=== PATIENT | female | born 1955 | race Caucasian/White ===

== ENCOUNTER → 2019-06-18 13:50 | Outpatient (BNVA) | payer SELFPAY | PROVIDERS: Family Provider Nurse Practitioner; PCP Nurse Practitioner; Referring Provider Nurse Practitioner; Visit Provider Nurse Practitioner | DX: M25.531 Pain in right wrist (principal) | CPT/HCPCS: 73110 ==

== ENCOUNTER → 2019-08-12 14:56 | Outpatient (BNVA) | payer OTHER, SELFPAY | PROVIDERS: Family Provider Nurse Practitioner; PCP Nurse Practitioner; Referring Provider Nurse Practitioner; Visit Provider Specialist | DX: M25.531 Pain in right wrist (principal) | CPT/HCPCS: 73110 ==

== ENCOUNTER 2019-08-19 14:55 | Outpatient (CLI) | payer SELFPAY ==
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
== END 2019-08-19 14:56 | disposition home or self-care (01) ==
LOC: RADWPI 15:00
PROVIDERS: Family Provider Nurse Practitioner; PCP Nurse Practitioner; Visit Provider Specialist
DX: M25.531 Pain in right wrist (principal)
CPT/HCPCS: 73221

== ENCOUNTER → 2019-09-14 09:51 | Outpatient (BNVA) | payer OTHER, SELFPAY | PROVIDERS: Family Provider Nurse Practitioner; PCP Nurse Practitioner; Referring Provider Specialist; Visit Provider Psychiatry & Neurology Neurology | DX: G56.01 Carpal tunnel syndrome, right upper limb (principal); Z87.891 Personal history of nicotine dependence | CPT/HCPCS: 95885; 95909 ==

== ENCOUNTER 2019-09-16 13:13 | Outpatient (CLI) | payer OTHER, SELFPAY | END 2019-09-16 13:14 | disposition home or self-care (01) | LOC: SPT 13:13 | PROVIDERS: Family Provider Nurse Practitioner; PCP Nurse Practitioner; Visit Provider Specialist | DX: Z46.89 Encounter for fitting and adjustment of other specified devices (principal); M25.531 Pain in right wrist | CPT/HCPCS: L3908 ==

== ENCOUNTER 2022-10-14 06:09 | Emergency (ER) | payer MEDICARE, MEDICAID, SELFPAY ==
[2022-10-14 06:09] VITALS: BP 150/84; PULSE 80; RESP 16; TEMP 36.3; O2SAT 94; BMI 24.9
[2022-10-14 06:31] VITALS: BP 175/81; PULSE 65; O2SAT 94
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
[2022-10-14 07:13] LABS: Basophils # 0.1 10^3/uL (0.0-0.1); Basophils % 0.4 %; Eosinophils # 0.1 10^3/uL (0.0-0.8); Eosinophils % 0.5 %; Hematocrit 43.5 % (37.0-47.0); Hemoglobin 13.6 g/dL (11.5-15.3); Lymphocytes # 1.2 10^3/uL (0.8-4.8); Lymphocytes % 9.2 %; Mean Corpuscular HGB Conc 31.3 g/dL (30.0-36.0); Mean Corpuscular Hemoglobin 29.6 pg (28.0-34.0); Mean Corpuscular Volume 94.8 fl (81-99); Mean Platelet Volume 9.8 fL (7.4-10.4); Monocytes # 0.7 10^3/uL (0.2-0.9); Monocytes % 5.2 %; Neutrophils # 11.34 10^3/uL (1.8-7.7); Neutrophils % 84.2 %; Nucleated Red Blood Cells % 0 %; Platelet Count 449 10^3/cmm (130-400); Red Blood Count 4.59 10^6/uL (4.1-5.3); Red Cell Distribution Width 13.4 % (12.1-15.1); White Blood Count 13.5 10^3/uL (4.0-10.0)
[2022-10-14 07:13] LABS: Add Urine Microscopic? YES; Bilirubin Urine Neg (Negative); Blood Urine 2+ (Negative); Glucose Urine UA Trace (Normal); Ketones Urine Negative (Negative); Leukocyte Esterase Urine Negative (Negative); Nitrate Urine Negative (Negative); Protein Urine Neg (Negative); Urine Appearance Hazy (CLEAR); Urine Color Straw (Yellow); Urobilinogen Urine Norm (Negative); pH Urine 7 (5-7)
[2022-10-14 07:14] LABS: Add Urine Culture? Yes; Bacteria Urine TRACE /hpf; WBC Urine RARE /hpf (0-5)
--- NOTE | 2022-10-14 07:22 | CTR_ITS ---
PROCEDURE INFORMATION: Exam: CT Abdomen And Pelvis Without Contrast Exam date and time: 10/14/2022 7:44 AM Age: 67 years old Clinical indication: Abdominal pain; Localized; Lower; Additional info: Flank pain/ hematuria TECHNIQUE: Imaging protocol: Computed tomography of the abdomen and pelvis without contrast. Radiation optimization: All CT scans at this facility use at least one of these dose optimization techniques: automated exposure control; mA and/or kV adjustment per patient size (includes targeted exams where dose is matched to clinical indication); or iterative reconstruction. REPORTING DATA: Count of CT and Cardiac NM exams in prior 12 months: This patient has received 0 known CTs and 0 known cardiac nuclear medicine studies in the 12 months prior to the current study. COMPARISON: CR XR hip RT 2-3V wo/w pel* [id number] 11/10/2018 8:06 PM RADIATION DOSE METRICS: Total DLP (mGy-cm): 359.4 FINDINGS: Lungs: Minimal bibasilar atelectasis noted, right greater than left. No consolidation. Liver: Normal. No mass. Gallbladder and bile ducts: Normal. No calcified stones. No ductal dilation. Pancreas: Normal. No ductal dilation. Spleen: Normal. No splenomegaly. Adrenal glands: Normal. No mass. Kidneys and ureters: There are 2 obstructing calculi in the right UVJ measuring 3 mm and 4 mm, resulting in mild hydronephrosis and stranding of the perirenal fat. Additional nonobstructing stones noted in the right kidney. Bilateral renal vascular calcifications seen. Stomach and bowel: Unremarkable. No obstruction. No mucosal thickening. Appendix: No evidence of appendicitis. Intraperitoneal space: Unremarkable. No free air. No significant fluid collection. Vasculature: Unremarkable. No abdominal aortic aneurysm. Lymph nodes: Unremarkable. No enlarged lymph nodes. Urinary bladder: Unremarkable as visualized. Reproductive: Bulky appearance of the uterus. There is a 5.6 cm rounded lesion adjacent to the uterus extending towards the right adnexal region, which may represent a fibroid or ovarian mass. Bones/joints: Degenerative changes of the spine seen. There is extensive lytic destruction of the pubic bone, ischium and inferolateral ilium on the right, with associated soft tissue component, which is difficult to measure. Multiple additional lytic lesions are seen scattered throughout the spine. Small right hip joint effusion seen. Soft tissues: Unremarkable. CT/CT kidney stone [id number] IMPRESSION: 1. Extensive lytic destruction of the pubic bone, ischium, inferolateral ilium on the right, with associated soft tissue component. Multiple additional lytic lesions are seen scattered throughout the spine. Imaging findings highly concerning for metastatic disease. 2. Nonspecific rounded mass in the right adnexal region, which may represent ovarian mass or uterine fibroid. Bulky appearance of the uterus.
[2022-10-14 07:32] VITALS: BP 165/97; O2SAT 95
[2022-10-14 07:32] LABS: Blood Urea Nitrogen 20 mg/dL (8-23); Calcium 9.6 mg/dL (8.5-10.5); Carbon Dioxide 26 mmol/L (22-29); Chloride 101 mmol/L (98-107); Glomerular Filtration Rate 62.6 mL/min (90-130); Glucose 127 mg/dL (65-115); Osmolality Calculated 294 mOsm/kg (285-295); Sodium 140 mmol/L (136-145)
[2022-10-14 08:06] VITALS: BP 155/80; O2SAT 98
[2022-10-14 09:33] VITALS: BP 146/84; O2SAT 96
[2022-10-14 10:24] VITALS: BP 163/98; PULSE 65; O2SAT 96
--- NOTE | 2022-10-14 10:26 | DCPLANNER ---
Addendum entered by Anne Marie Dunaway 10/15/22 10:47: Patient has a follow up appointment scheduled for Friday, October 21, 2022 at 12:40 at [facility] Gynecologic Oncology- patient is aware of appointment. Original Note: corporate relations manager was asked to refer patient to gynecology, case management director called Luis Fernando at [facility], who stated that patient would need to be referred to [facility] in [place], Dr. Blanca. corporate relations manager faxed patients information to the clinic for review. Patients information will be reviewed, clinic will call patient with appointment information.
== END 2022-10-14 10:24 | disposition home or self-care (01) ==
PROVIDERS: Emergency Provider Family Medicine; PCP Nurse Practitioner
DX: N83.9 Noninflammatory disorder of ovary, fallopian tube and broad ligament, unspecified (principal); M89.9 Disorder of bone, unspecified; Z87.891 Personal history of nicotine dependence
CPT/HCPCS: 51798; 74176; 80048; 81001; 85025; 87086; 99284

== ENCOUNTER 2022-11-14 15:13 | Emergency (ER) | payer MEDICARE, MEDICAID, SELFPAY ==
[2022-11-14 15:25] VITALS: BP 155/77; PULSE 65; RESP 16; TEMP 36.6; O2SAT 96
--- NOTE | 2022-11-14 15:33 | XRR_ITS ---
PROCEDURE INFORMATION: Exam: XR Right Shoulder Exam date and time: 11/14/2022 4:00 PM Age: 67 years old Clinical indication: Pain; Shoulder; Right; Additional info: Fall, pain TECHNIQUE: Imaging protocol: Radiologic exam of the right shoulder. Views: 2 or more views. COMPARISON: CR XR shoulder RT min 2V* [id number] 11/10/2018 8:06 PM FINDINGS: Bones/joints: There is impacted fracture of the proximal right humerus at the level of the anatomic neck involving head of the humerus. Fracture appears to be comminuted. There are lucencies in the head of the humerus and this is likely a pathologic fracture. Soft tissues: Normal. XR/XR shoulder RT min 2V* [id number] IMPRESSION: Pathologic fracture of the proximal right humerus.
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
[2022-11-14 16:15] VITALS: RESP 16
[2022-11-14] MEDS: oxyCODONE 5 mg IR Tab/Cap PO (16:15)
--- NOTE | 2022-11-14 18:32 | PC.NURSE ---
Pt declined second dose of oxycodone stating she has to drive home. Pt urinated on her pants, green paper pants given to pt. Pt asking what is the plan.
--- NOTE | 2022-11-14 19:44 | PC.NURSE ---
PT WAS BROUGHT BACK FROM TO ROOM 2 AFTER ROOM WAS CLEANED AND PT STATES THAT SHE PEED ON HERSELF DUE TO NOT BEING ABLE TO GET HERSELF UP (PT GOT UP FROM AFTER URINATING ON HERSELF TO TELL REGISTRATION THAT SHE PEED) WHEN WE GOT PT BACK TO HER ROOM SHE STARTED CUSSING AT TX, VON, AND MEGHAN. SHE WAS CUSSING AT US FOR NOT HELPING HER AND WE REITERATED TO HER THAT SHE DID NOT INFORM ANYONE THAT SHE NEEDED TO GO. PT WAS PUT IN ROOM AND HELPED TO BED BY ME. PT WAS TOLD SHE COULD NOT CUSS AT US OR YELL AT US BY KRYSTAL AND Herb. PT HAD TOLD A TECH SHE NEEDED MORE PAIN MEDICATION, THAT THE MED FROM [facility] WAS WORN OFF. I BROUGHT NEW PAIN MED IN AND FOUND PT ON THE COMMODE. PT IMMEDIATELY STARTED YELLING AT ME TELLING ME SHE PEED HER 'FUCKING PANTS AGAIN, I ASKED HER IF SHE WOULD LIKE A PAIR OF OUR PAPER PANTS AND SHE PROCEEDED TO YELL AT TX BC SHE DID NOT BRING ANYMORE PANTS BC SHE WAS NOT PLANNING ON GOING TO THE [facility] ER. SHE ALSO YELLED AT ME FOR NOT HELPING HER AND I ASKED HER IF SHE PUSHED HER CALL LIGHT AND SHE YELLED AND CUSSED AT ME SAYING SHE DIDNT HAVE FUCKING TIME I ASKED HER AGAIN IF SHE WANTS A PAIR OF OUR PANTS AND SHE SAID SHE WAS GOING TO PUT THE PAD AND MATERNATY UNDERWHERE ON AND I SAID OKAY DO YOU WANT ME TO COME BACK W YOUR MED AND SHE SAID DO YOU FUCKING EXPECT ME TO SIT BEAR ASS NAKED ON THE COMODE AND I SAID WOULD YOU LIKE PAPER PANTS YES OR NO AND SHE TOLD ME TO NOT TALK TO HER LIKE A CHILD AND I SAID I HAVE ASKED YOU SEVERAL TIMES IF YOU WANT PANTS AND YOU HAVE NOT ANSWERED ME I AM NOT GOING TO STAY HERE AND LET YOU YELL AT ME OR CUSS AT ME, DO YOU WANT PANTS YES OR NO. AND SHE PROCEEDED TO YELL AT ME WHILE I WALKED OUT OF THE ROOM. UPON DC I BROUGHT SHOULDER IMMOBILIZER TO PLACE ON PT. WHEN WALKING IN I SAID OK HUN I HAVE A SHOULDER IMMOBILIZER TO PUT ON YOU AND A SIGNATURE TO GET, ARE YOU READY TO GO HOME? AND SHE STATED YOU TALKED TO ME LIKE A CHILD [facility] AND YOU HAVE NO RIGHT, YOU NEED TO APPOLOGIZE TO ME I SAID IM JUST TRYING TO GET YOU DISCHARGED RIGHT NOW, THAT WAS [facility] TODAY LETS JUST MOVE PAST THAT SITUATION. SHE PROCEDED TO TELL ME IT IS IN MY BEST INTEREST TO APOLOGIZE TO HER. AND AGAIN STARTED YELLING AT ME FOR TALKING TO HER LIKE A CHILD AND I SAID YOU WERE NOT ANSWERING ME AND YOU KEPT YELLING AT ME AND BEING DISRESPECTFUL SO I AM NOT SORRY FOR TRYING TO GET AN ANSWER. SHE THEN TOLD ME TO SHE RECORDED ME WITH HER PHONE CAMERA, AND I SAID THAT IS FINE BC I DID NOT SAY ANYTHING I WOULDNT REPORT MYSELF. I THEN TRIED TO PUT THE SHOULDER IMMOBILIZER ON HER AND SHE SAID I NEEDED TO GO FIND A COMPETENT NURSE AND I TOLD HER I WAS HER NURSE AND EVERYONE WAS BUSY, SHE TOLD ME SHE DID NOT TRUST ME AND I WOULD PROBABLY PUT IT ON HER WRONG AND I TOLD HER SHE DID NOT HAVE TO WEAR IT OUT, DOC SAID SHE COULD TAKE IT HOME, I TRIED TO GET HER TO SIGN HER DC PAPERS, THIS IS WHEN SHE TOLD ME TO GET MY SPEECH LANGUAGE ASSISTANT, I WENT AND GOT PAULETTE AND GAVE HER A RUNDOWN AND SHE WENT TO HELP PT WHILE I ASSISTED MY OTHER PTS.
--- NOTE | 2022-11-15 08:23 | DCPLANNER ---
Addendum entered by Anne Marie Dunaway 11/20/22 10:10: Patient had a follow up appointment scheduled with ortho - patient did attend appointment Addendum entered by Anne Marie Dunaway 11/15/22 10:50: Patient has a follow up appointment scheduled for Saturday, November 19, 2022 at 3:00 with Cliff Bills at ortho. Original Note: store manager had message to schedule a follow up appointment for patient with ortho. store manager sent patients information to the front office staff at ortho. Patients information will be printed and reviewed. Clinic will call patient with appointment information.
== END 2022-11-14 20:21 | disposition home or self-care (01) ==
PROVIDERS: Emergency Provider Emergency Medicine; PCP Family Medicine
DX: S42.291A Other displaced fracture of upper end of right humerus, initial encounter for closed fracture (principal); X58.XXXA Exposure to other specified factors, initial encounter
CPT/HCPCS: 29240; 73030; 99283

== ENCOUNTER → 2022-11-19 14:46 | Outpatient (BNVA) | payer MEDICARE, MEDICAID, SELFPAY | PROVIDERS: PCP Family Medicine; Referring Provider Emergency Medicine; Visit Provider Physician Assistant | DX: S42.291A Other displaced fracture of upper end of right humerus, initial encounter for closed fracture (principal); W18.30XA Fall on same level, unspecified, initial encounter | CPT/HCPCS: 73030; 99203 ==

== ENCOUNTER 2022-11-23 05:49 | Outpatient (CLI) | payer MEDICARE, MEDICAID, SELFPAY ==
--- NOTE | 2022-11-23 10:30 | PETR_ITS ---
PROCEDURE INFORMATION: Exam: PET/CT Skull Base to Mid-thigh Exam date and time: 11/23/2022 10:45 AM Age: 67 years old Clinical indication: Condition or disease; Primary cancer: Breast cancer; Initial oncological staging assessment LABS AND CLINICAL REPORTS: Glucose: 84 mg/dl Treatment strategy for malignancy (PET staging): Initial Staging (PI) TECHNIQUE: Imaging protocol: Following at least four-hour fasting and following the injection of radiopharmaceutical, low dose CT images were obtained. Then, PET images were obtained. Attenuation corrected images were constructed using the CT scan. Fused images of PET and CT were reviewed. The standardized uptake values (SUV) reported below are maximum values within a region of interest, expressed in gm/ml. Exam includes orbital meatal line to mid-thigh. Radiopharmaceutical: 14.04 mCi F-18 FDG (Fluorodeoxyglucose), IV. Time of imaging post radiopharmaceutical administration: 1 hour Injection site: Left forearm COMPARISON: CT kidney stone [id number] 10/14/2022 7:44 AM, right shoulder x-ray series 11/14/2022 FINDINGS: Brain: Visualized brain has normal physiologic uptake. Pharynx: No abnormal uptake. Larynx: No abnormal uptake. Lungs, pleura and trachea: No abnormal uptake. Heart: Normal physiologic uptake. Mediastinal space: No abnormal uptake. Liver: No abnormal uptake. Gallbladder and bile ducts: No abnormal uptake. Pancreas: No abnormal uptake. Spleen: No abnormal uptake. Adrenal glands: No abnormal uptake. Kidneys and ureters: Normal physiologic uptake. No hydronephrosis. A staghorn calculus in the right kidney measuring 1.7 x 1.0 cm in the axial plane is noted. Interval resolution of previously noted hydronephrosis. Previously noted calculi at the right ureterovesical junction are no longer identified. Stomach and bowel: No abnormal uptake. Vasculature: No abnormal uptake. Diffuse atherosclerotic changes are noted. Lymph nodes: There are small radiotracer avid right external iliac chain lymph nodes measuring 1.2 x 0.7 cm on series 3, image 122, SUV max 5.6 within adjacent more inferiorly located lymph node measuring approximately 1.4 x 0.7 cm on image 124, SUV max 4.8. Bones/joints: There are numerous radiotracer avid osseous lesions. Examples a lytic lesion in the right anterior ring of C1 is noted measuring 1.8 x 1.0 cm on series 3, image 12, SUV max 8.5; a lucent lesion in the T3 vertebral body measures 1.7 x 0.9 cm on series 3, image 18, SUV max 9.4; within the region of previously noted pathologic fracture of the proximal right humeral metaphysis with extension into numerous regions of abnormal lucency involving the right femoral head, SUV max 7.9; within lobulated lucency in the right glenoid, SUV max 11.0 in a region measuring approximately 1.6 x 1.4 cm on series 3, image 39; and a lucent lesion in the L5 vertebral body on the left measuring 1.7 cm in diameter, SUV max 15.4; involving a large destructive lesion of the right iliac bone with a soft tissue density component measuring approximately 10.3 x 4.7 cm on series 3, image 123, right acetabulum, right superior pubic and inferior pubic rami and right pubic bone, SUV max 13.2. Additional smaller radiotracer avid lesions include the posterior cortex of the proximal shaft of the femur, left femoral neck, right femoral head, left inferior pubic ramus, sacrum, lumbar thoracic vertebral bodies left glenoid. Large right hip joint effusion. Soft tissues: Asymmetric soft tissue density in the subareolar right breast measures 1.9 by 1.3 cm on series 3, image 78, SUV max 4.8. Abnormal uptake in the soft tissues posterior to the most posterior right maxillary tooth is noted, SUV max 6.7. Lobulated prominence of the uterus is noted, greatest to the right of midline where there is a probable exophytic leiomyoma measuring 4.9 x 3.9 cm on series 3, image 120, without abnormal uptake in these locations. No abnormal uptake in the adnexal regions. Abnormal uptake is identified in the right gluteus medius muscle adjacent to the mass in the right ilium and acetabulum, SUV max 8.7. METRICS: Mediastinal blood pool: SUV max 2.2 [facility] [id number] IMPRESSION: 1. Abnormal uptake within asymmetric soft tissue density in the subareolar portion of the right breast is compatible with the history of malignancy. 2. Numerous radiotracer avid osseous lesions are identified consistent with metastases, the largest and most destructive of which is involves the right pelvis in the region of the inferior iliac bone, acetabulum, superior inferior pubic rami and pubic bone. 3. Known pathologic fracture of the proximal right humerus. 4. Radiotracer avid right pelvic sidewall lymph nodes compatible with malignancy. 5. Uptake within the right gluteus medius muscle is noted which may be reactive or related to tumor invasion. 6. Interval resolution of right-sided hydronephrosis. Previously noted stones in the region of the ureterovesical junction on the right are no longer identified. 7. Non radiotracer avid enlargement of the uterus with an exophytic soft tissue density extending into the right adnexal region compatible with a leiomyoma. 8. Additional nonurgent findings as detailed above.
== END 2022-11-23 05:50 | disposition home or self-care (01) ==
LOC: RAD 11-25 05:49
PROVIDERS: PCP Family Medicine; Visit Provider Internal Medicine Medical Oncology
DX: C50.111 Malignant neoplasm of central portion of right female breast (principal); C79.52 Secondary malignant neoplasm of bone marrow; C50.919 Malignant neoplasm of unspecified site of unspecified female breast
CPT/HCPCS: 78815; A9552

== ENCOUNTER 2022-11-27 06:30 | Outpatient (CLI) | payer MEDICARE, MEDICAID, SELFPAY ==
--- NOTE | 2022-11-27 | XR_ITS ---
WS: [id number] RIGHT HAND: 3 VIEW(S) TECHNIQUE: PA, oblique and lateral. HISTORY: PAIN AND SWELLING COMPARISON: 08/12/2019 No acute fracture or dislocation. Osteopenia. Moderate interphalangeal joint space narrowing. Additional osteoarthritic changes involvi ng the first carpometacarpal joint and the STT. 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 No fractures.
== END 2022-11-27 06:31 | disposition home or self-care (01) ==
PROVIDERS: PCP Family Medicine; Visit Provider Nurse Practitioner
DX: M19.041 Primary osteoarthritis, right hand (principal)
CPT/HCPCS: 73130

== ENCOUNTER 2022-11-28 14:40 | Oncology outpatient (recurring) (ONCR) | payer MEDICARE, MEDICAID, SELFPAY ==
--- NOTE | 2022-11-20 13:37 | N.ONRAD NP_ITS ---
Radiation Oncology Consultation Patient Name: Lorna Mckenzie Date of : 1955 Date of Service: 11/20/2022 Attending Physician: Bartolome Prabhakar M.D. Lorna cMkenzie was seen in consultation this afternoon at the request of Mark Sandoval M.D. for consideration of palliative radiotherapy in the management of metastatic breast cancer. She was evaluated at the [facility] Emergency Department on October 14, 2022 for lower abdominal pain. An abdominopelvic CT scan (independently reviewed in [facility]) described a 5.6 cm lesion adjacent to the uterus extending to the right adnexal region, extensive lytic destruction of the right pubic bone, ischium, ilium, and spine. She was evaluated by gynecologic oncology at the [facility] in [place], [place]. Examination of the right breast described erythema and ulceration of the areola. 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 The tumor cells were positive for CK7 and JOYCE-3. This IHC pattern is most consistent with a primary ductal carcinoma of the breast. The Breast Cancer Profile was positive for estrogen receptor (95%), progesterone receptor (10%), and negative for HER2 (1+). The patient was referred for palliative radiotherapy. I discussed with Ms. Mckenzie the role for palliative radiotherapy. On account of her worsening pelvic pain, I would recommend a 1-week course of radiation therapy. A planning CT scan will be acquired prior to beginning treatment to delineate the clinical target volume. The potential toxicities of radiotherapy were reviewed. The patient has verbalized understanding would like to proceed as recommended. The patient???s medical treatment has been discussed with Mark Sandoval M.D. Signed by: Dr. Bartolome Prabhakar 11/20/2022 1:35:53 PM
[2022-11-28 16:30] LABS: Basophils # 0.1 10^3/uL (0.0-0.1); Basophils % 0.8 %; Eosinophils # 0.1 10^3/uL (0.0-0.8); Eosinophils % 0.8 %; Hematocrit 38.3 % (37.0-47.0); Hemoglobin 12.1 g/dL (11.5-15.3); Lymphocytes # 1.8 10^3/uL (0.8-4.8); Mean Corpuscular HGB Conc 31.6 g/dL (30.0-36.0); Mean Corpuscular Hemoglobin 29.5 pg (28.0-34.0); Mean Corpuscular Volume 93.4 fl (81-99); Mean Platelet Volume 10.1 fL (7.4-10.4); Monocytes # 0.4 10^3/uL (0.2-0.9); Monocytes % 6.6 %; Neutrophils # 4.01 10^3/uL (1.8-7.7); Neutrophils % 63.5 %; Nucleated Red Blood Cells % 0 %; Platelet Count 450 10^3/cmm (130-400); Red Cell Distribution Width 12.8 % (12.1-15.1); White Blood Count 6.3 10^3/uL (4.0-10.0)
[2022-11-28] MEDS: zoledronic acid 4 MG in sodium chloride 0.9% (100 ml) 100 ML 420 MG IV (16:33)
[2022-11-28 16:58] VITALS: BP 127/72; PULSE 74; O2SAT 96
[2022-11-28 17:02] LABS: Alanine Aminotransferase 10 U/L (0-33); Albumin Level 3.7 g/dL (3.5-5.2); Alkaline Phosphatase 119 U/L (35-105); Anion Gap 14.9 (5-19); Aspartate Amino Transferase 16 U/L (0-32); Blood Urea Nitrogen 13 mg/dL (8-23); Calcium 9.1 mg/dL (8.5-10.5); Carbon Dioxide 26 mmol/L (22-29); Chloride 104 mmol/L (98-107); Globulin 2.8 g/dL (1.3-4.6); Glomerular Filtration Rate 123.4 mL/min (90-130); Glucose 89 mg/dL (65-115); Osmolality Calculated 292 mOsm/kg (285-295); Potassium 3.9 mmol/L (3.5-5.1); Sodium 141 mmol/L (136-145); Total Bilirubin 0.3 mg/dL (0.15-1.2); Total Protein 6.5 g/dL (6.6-8.7)
[2022-11-28 17:23] LABS: CA 15-3 639.1 U/mL (0-25)
== END 2022-12-06 23:59 | disposition home or self-care (01) ==
PROVIDERS: Nurse Practitioner Family; PCP Family Medicine; Visit Provider Radiology Radiation Oncology
DX: C50.111 Malignant neoplasm of central portion of right female breast (principal); Z17.0 Estrogen receptor positive status [ER+]; C79.51 Secondary malignant neoplasm of bone; F17.210 Nicotine dependence, cigarettes, uncomplicated; Z79.818 Long term (current) use of other agents affecting estrogen receptors and estrogen levels; Z79.899 Other long term (current) drug therapy; R11.2 Nausea with vomiting, unspecified
CPT/HCPCS: 80053; 85025; 86300; 96372; 99205; 99215; J3489

== ENCOUNTER 2022-12-26 12:27 | Oncology outpatient (recurring) (ONCR) | payer MEDICARE, MEDICAID, SELFPAY ==
[2022-12-26 12:30] VITALS: BMI 18.5
[2022-12-26 12:31] VITALS: BP 112/71; PULSE 91; RESP 18; TEMP 36.9; O2SAT 98
[2022-12-26 12:42] LABS: Basophils % 1.5 %; Eosinophils % 1.1 %; Hematocrit 37.3 % (37.0-47.0); Lymphocytes # 1.2 10^3/uL (0.8-4.8); Lymphocytes % 44.9 %; Mean Corpuscular HGB Conc 32.2 g/dL (30.0-36.0); Mean Corpuscular Hemoglobin 31.4 pg (28.0-34.0); Mean Corpuscular Volume 97.6 fl (81-99); Mean Platelet Volume 9.5 fL (7.4-10.4); Monocytes # 0.2 10^3/uL (0.2-0.9); Monocytes % 7.1 %; Neutrophils # 1.21 10^3/uL (1.8-7.7); Neutrophils % 45.4 %; Nucleated Red Blood Cells % 0 %; Platelet Count 305 10^3/cmm (130-400); Red Blood Count 3.82 10^6/uL (4.1-5.3); Red Cell Distribution Width 17.4 % (12.1-15.1); White Blood Count 2.7 10^3/uL (4.0-10.0)
[2022-12-26 13:09] LABS: Alanine Aminotransferase 13 U/L (0-33); Albumin Level 4.2 g/dL (3.5-5.2); Alkaline Phosphatase 145 U/L (35-105); Aspartate Amino Transferase 16 U/L (0-32); Blood Urea Nitrogen 14 mg/dL (8-23); Calcium 9.1 mg/dL (8.5-10.5); Carbon Dioxide 25 mmol/L (22-29); Chloride 104 mmol/L (98-107); Globulin 2.9 g/dL (1.3-4.6); Glomerular Filtration Rate 123.4 mL/min (90-130); Glucose 100 mg/dL (65-115); Osmolality Calculated 287 mOsm/kg (285-295); Sodium 138 mmol/L (136-145); Total Bilirubin 0.4 mg/dL (0.15-1.2); Total Protein 7.1 g/dL (6.6-8.7)
[2022-12-26 13:31] LABS: CA 15-3 691.7 U/mL (0-25)
[2022-12-26] MEDS: zoledronic acid 4 MG in sodium chloride 0.9% (100 ml) 100 ML 420 MG IV (15:24)
[2022-12-26 15:47] VITALS: BP 104/65; PULSE 68; RESP 18; TEMP 36.9; O2SAT 97
== END 2023-01-06 23:59 | disposition home or self-care (01) ==
PROVIDERS: Internal Medicine Medical Oncology; PCP Family Medicine; Visit Provider Radiology Radiation Oncology
DX: C50.111 Malignant neoplasm of central portion of right female breast (principal); Z17.0 Estrogen receptor positive status [ER+]; C79.51 Secondary malignant neoplasm of bone; R97.8 Other abnormal tumor markers; Z79.818 Long term (current) use of other agents affecting estrogen receptors and estrogen levels; Z79.899 Other long term (current) drug therapy
CPT/HCPCS: 36415; 80053; 85025; 86300; 96365; 99214; J3489

== ENCOUNTER → 2022-12-31 14:01 | Outpatient (BNVA) | payer MEDICARE, MEDICAID, SELFPAY | PROVIDERS: PCP Family Medicine; Visit Provider Physician Assistant | DX: M25.511 Pain in right shoulder (principal) | CPT/HCPCS: 73030; 99204 ==

== ENCOUNTER 2023-01-13 13:24 | Oncology outpatient (recurring) (ONCR) | payer MEDICARE, MEDICAID, SELFPAY ==
--- OUTSIDE RECORDS SUMMARY | 2023-01-13 13:25 | XMS_ITS | Continuity of Care Document ---
Author Name Unknown Organization [facility] Address [address] [place] [address]- Care Team Providers Care Broadcasting Equipment Mechanic Name Role Phone Zzz, Not On File Doctor Primary Care Physician U navailable Encounter [facility] Financial Number [id number] Date(s): 10/21/22 - 10/23/22 [facility] [address] [place] [phone] Attending Physician: Fiona Bourne MD Allergies, Adverse Reactions, Alerts No Known Medication Allergies Assessment and Plan Future Appointments Appointment Date:11/08/2022 10:30:00 AM Scheduled Provider: Location:[facility] Radiology Appointment Type:Surgery Future Scheduled Tests Radiology* CT Chest w Contrast 11/08/22 * CT Biopsy Bone 11/08/22 Medications CoQ10 By mouth, Daily, Refill(s) 0 Start Date: 10/21/22 Status: Ordered ivermectin 150 mcg/kg, By mouth, ONCE, Refill(s) 0 Start Date: 10/21/22 Status: Ordered [employer] [place]-3 1,200 mg, By mouth, TID, Refill(s) 0 Start Date: 10/21/22 Status: Ordered oxyCODONE 5 mg oral tablet 5 mg, = 1 tab, By mouth, Q6H, PRN Pain Severe, 30 tab, 0, 0, 10/28/22 17:17:00 CDT, Substitution Permitted, [employer] #[id number], 65, Height, 10/21/22 13:18:00 CDT, in, 55.86, Weight, 10/21/2312:18:00 CDT, kg Start Date: 10/21/22 Stop Date: 10/28/22 Status: Ordered Problem List Condition Confirmation Course Effective Dates Status H ealth Status Informant Lytic bone lesion of hip Confirmed Active Ex-smoker Confirmed Active patient Hydronephrosis Confirmed Active Hepatomegaly Confirmed Active 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 No 1 entered on: 10/21/22 Sex Female 1Stopped in 1998 Patient Care team information Care Team Personnel Name: Awilda, Not On File Doctor Position: PX Physician - Dermatology Member Role: Primary Care Physician Care Team Related Persons Name: MARC ADORNO
--- OUTSIDE RECORDS SUMMARY | 2023-01-13 13:25 | XMS_ITS | Continuity of Care Document ---
Author Name Unknown Organization [facility] Address [address] [place] [address]- Care Team Providers Care Legal Stenographer Name Role Phone Awilda, Not On File Doctor Primary Care Physician U navailable Encounter [employer] Number [id number] Date(s): 10/21/22 - 12/20/22 [facility] [address] [place], [place] [address] [phone] Attending Physician: Mateo Rainey MD Admitting Physician: Referring, DR Almaraz Allergies, Adverse Reactions, Alerts No Known Medication Allergies Assessment and Plan Future Scheduled Tests Radiology* CT Chest w Contrast 11/08/22 * CT Biopsy Bone 11/08/22 Medications CoQ10 By mouth, Daily, Refill(s) 0 Start Date: 10/21/22 Status: Ordered ivermectin 150 mcg/kg, By mouth, ONCE, Refill(s) 0 Start Date: 10/21/22 Status: Ordered [employer] [place]-3 1,200 mg, By mouth, TID, Refill(s) 0 Start Date: 10/21/22 Status: Ordered Problem List Condition Confirmation Course [...] Care team information Care Team Personnel Name: Edyta Wheeler MD Position: PX Physician - Oncologist Member Role: Oncologist Address: Address: [address] [place], [place] [address] Name: Awilda, Not On File Doctor Position: PX Physician - Dermatology Member Role: Primary Care Physician Care Team Related Persons Name: MARC ADORNO
--- OUTSIDE RECORDS SUMMARY | 2023-01-13 13:25 | XMS_ITS | Continuity of Care Document ---
Author Name Unknown Organization [facility] Address [address] [place] [address]- Care Team Providers Care Groundwater Consultant Name Role Phone Zzz, Not On File Doctor Primary Care Physician U navailable Encounter [employer] Number [id number] Date(s): 10/21/22 - 10/23/22 [facility] [address] [place] [address]- Attending Physician: Mateo Rainey MD Admitting Physician: Referring, DR Almaraz Allergies, Adverse Reactions, Alerts No Known Medication Allergies Assessment and Plan Future Appointments Appointment Date:11/08/2022 10:30:00 AM Scheduled Provider: Location:[facility] Radiology Appointment Type:Surgery Future Scheduled Tests Radiology* CT Chest w Contrast 11/08/22 * CT Biopsy Bone 11/08/22 Medications CoQ10 By mouth, Daily, Refill(s) 0 Start Date: 10/21/22 Status: Ordered ivermectin 150 mcg/kg, By mouth, ONCE, Refill(s) 0 Start Date: 10/21/22 Status: Ordered [employer] [place]-3 1,200 mg, By mouth, TID, Refill(s) 0 Start Date: 10/21/22 Status: Ordered oxyCODONE 5 mg oral tablet 5 mg, = 1 tab, By mouth, Q6H, PRN Pain Severe, 30 tab, 0, 0, 10/28/22 17:17:00 CDT, Substitution Permitted, [employer] #[id number], 65, Height, 10/21/22 13:18:00 CDT, in, 55.86, [...]
[2023-01-13 13:28] VITALS: BP 123/93; PULSE 81; RESP 18; TEMP 37; O2SAT 96
[2023-01-13 13:40] LABS: Basophils # 0.1 10^3/uL (0.0-0.1); Basophils % 2.5 %; Eosinophils % 1.1 %; Hematocrit 38.7 % (37.0-47.0); Hemoglobin 12.5 g/dL (11.5-15.3); Lymphocytes # 1.1 10^3/uL (0.8-4.8); Lymphocytes % 40.4 %; Mean Corpuscular HGB Conc 32.3 g/dL (30.0-36.0); Mean Corpuscular Hemoglobin 31.8 pg (28.0-34.0); Mean Corpuscular Volume 98.5 fl (81-99); Mean Platelet Volume 9.7 fL (7.4-10.4); Monocytes # 0.1 10^3/uL (0.2-0.9); Neutrophils # 1.42 10^3/uL (1.8-7.7); Neutrophils % 51.6 %; Nucleated Red Blood Cells % 0 %; Platelet Count 355 10^3/cmm (130-400); Red Blood Count 3.93 10^6/uL (4.1-5.3); Red Cell Distribution Width 18.9 % (12.1-15.1); White Blood Count 2.8 10^3/uL (4.0-10.0)
[2023-01-23 12:23] VITALS: BMI 19.0
[2023-01-23 12:25] VITALS: BP 136/82; PULSE 77; RESP 18; TEMP 37.1; O2SAT 98
[2023-01-23 12:39] LABS: Basophils # 0.1 10^3/uL (0.0-0.1); Basophils % 2.4 %; Eosinophils % 0.7 %; Hematocrit 39.4 % (37.0-47.0); Hemoglobin 12.7 g/dL (11.5-15.3); Lymphocytes # 1.3 10^3/uL (0.8-4.8); Lymphocytes % 44.6 %; Mean Corpuscular HGB Conc 32.2 g/dL (30.0-36.0); Mean Corpuscular Hemoglobin 32.2 pg (28.0-34.0); Mean Platelet Volume 9.3 fL (7.4-10.4); Monocytes # 0.3 10^3/uL (0.2-0.9); Monocytes % 9.1 %; Neutrophils # 1.22 10^3/uL (1.8-7.7); Neutrophils % 42.5 %; Nucleated Red Blood Cells % 0 %; Platelet Count 234 10^3/cmm (130-400); Red Blood Count 3.94 10^6/uL (4.1-5.3); Red Cell Distribution Width 19.9 % (12.1-15.1); White Blood Count 2.9 10^3/uL (4.0-10.0)
[2023-01-23 13:14] LABS: Alanine Aminotransferase 11 U/L (0-33); Albumin Level 4.2 g/dL (3.5-5.2); Alkaline Phosphatase 102 U/L (35-105); Aspartate Amino Transferase 13 U/L (0-32); Blood Urea Nitrogen 10 mg/dL (8-23); Calcium 8.9 mg/dL (8.5-10.5); Carbon Dioxide 27 mmol/L (22-29); Chloride 103 mmol/L (98-107); Globulin 2.6 g/dL (1.3-4.6); Glomerular Filtration Rate 159.7 mL/min (90-130); Glucose 92 mg/dL (65-115); Osmolality Calculated 285 mOsm/kg (285-295); Sodium 138 mmol/L (136-145); Total Bilirubin 0.2 mg/dL (0.15-1.2); Total Protein 6.8 g/dL (6.6-8.7)
[2023-01-23 13:35] LABS: CA 15-3 576.2 U/mL (0-25)
[2023-01-23] MEDS: zoledronic acid 4 MG in sodium chloride 0.9% (100 ml) 100 ML 420 MG IV (14:49)
[2023-01-23 15:24] VITALS: BP 126/66; PULSE 65; RESP 16; TEMP 35.9; O2SAT 98
== END 2023-02-06 23:59 | disposition home or self-care (01) ==
PROVIDERS: Internal Medicine Medical Oncology; Nurse Practitioner Family; PCP Family Medicine; Visit Provider Radiology Radiation Oncology
DX: C50.111 Malignant neoplasm of central portion of right female breast (principal)
CPT/HCPCS: 36415; 80053; 85025; 86300; 96413; 99214; J3489

== ENCOUNTER → 2023-01-30 14:21 | Outpatient (BNVA) | payer MEDICARE, MEDICAID, SELFPAY | PROVIDERS: PCP Family Medicine; Visit Provider Physician Assistant | DX: M84.421D Pathological fracture, right humerus, subsequent encounter for fracture with routine healing (principal) | CPT/HCPCS: 73030; 99213 ==

== ENCOUNTER 2023-03-04 13:28 | Oncology outpatient (recurring) (ONCR) | payer MEDICARE, MEDICAID, SELFPAY ==
[2023-02-13 14:17] LABS: Basophils # 0.1 10^3/uL (0.0-0.1); Eosinophils % 1.5 %; Lymphocytes # 1.3 10^3/uL (0.8-4.8); Mean Corpuscular HGB Conc 32.9 g/dL (30-55); Mean Corpuscular Hemoglobin 33.9 pg (27-33); Mean Platelet Volume 9.3 fL (7.4-10.4); Monocytes # 0.2 10^3/uL (0.2-0.9); Monocytes % 7.2 %; Neutrophils # 1.01 10^3/uL (1.8-7.7); Neutrophils % 38.5 %; Nucleated Red Blood Cells % 0 %; Platelet Count 251 10^3/cmm (157-399); Red Blood Count 3.69 10^6/uL (3.85-5.65); White Blood Count 2.63 10^3/uL (3.29-11.43)
[2023-02-13 14:54] LABS: Alanine Aminotransferase 11 U/L (0-33); Alkaline Phosphatase 88 U/L (35-105); Anion Gap 12.4 (5-19); Aspartate Amino Transferase 17 U/L (0-32); Blood Urea Nitrogen 12 mg/dL (8-23); Calcium 8.3 mg/dL (8.5-10.5); Carbon Dioxide 26 mmol/L (22-29); Chloride 103 mmol/L (98-107); Globulin 2.7 g/dL (1.3-4.6); Glomerular Filtration Rate 159.7 mL/min (90-130); Glucose 94 mg/dL (65-115); Osmolality Calculated 284 mOsm/kg (285-295); Potassium 4.4 mmol/L (3.5-5.1); Sodium 137 mmol/L (136-145); Total Bilirubin 0.4 mg/dL (0.15-1.2); Total Protein 6.7 g/dL (6.6-8.7)
[2023-02-13 15:15] LABS: CA 15-3 430.4 U/mL (0-25)
[2023-03-04 13:41] VITALS: BP 106/58; PULSE 78; RESP 16; TEMP 36.4; O2SAT 94
[2023-03-04 14:14] LABS: Basophils # 0.1 10^3/uL (0.0-0.1); Basophils % 3.3 %; Eosinophils % 1.3 %; Hematocrit 36.9 % (36-47); Lymphocytes # 1.2 10^3/uL (0.8-4.8); Lymphocytes % 38.7 %; Mean Corpuscular HGB Conc 33.1 g/dL (30-55); Mean Corpuscular Hemoglobin 34.6 pg (27-33); Mean Corpuscular Volume 104.5 fl (85-98); Mean Platelet Volume 9.3 fL (7.4-10.4); Monocytes # 0.2 10^3/uL (0.2-0.9); Neutrophils # 1.55 10^3/uL (1.8-7.7); Neutrophils % 51.4 %; Nucleated Red Blood Cells % 0 %; Platelet Count 379 10^3/cmm (157-399); Red Blood Count 3.53 10^6/uL (3.85-5.65); Red Cell Distribution Width 17.1 % (12.1-15.1); White Blood Count 3.02 10^3/uL (3.29-11.43)
[2023-03-04 14:35] LABS: Alanine Aminotransferase 11 U/L (0-33); Albumin Level 4.1 g/dL (3.5-5.2); Alkaline Phosphatase 89 U/L (35-105); Anion Gap 12.3 (5-19); Aspartate Amino Transferase 13 U/L (0-32); Blood Urea Nitrogen 13 mg/dL (8-23); Calcium 8.4 mg/dL (8.5-10.5); Carbon Dioxide 27 mmol/L (22-29); Chloride 107 mmol/L (98-107); Globulin 2.4 g/dL (1.3-4.6); Glomerular Filtration Rate 123.4 mL/min (90-130); Glucose 93 mg/dL (65-115); Osmolality Calculated 294 mOsm/kg (285-295); Potassium 4.3 mmol/L (3.5-5.1); Sodium 142 mmol/L (136-145); Total Bilirubin 0.3 mg/dL (0.15-1.2); Total Protein 6.5 g/dL (6.6-8.7)
[2023-03-04] MEDS: zoledronic acid 4 MG in sodium chloride 0.9% (100 ml) 100 ML 420 MG IV (16:02)
[2023-03-04 16:32] VITALS: BP 107/64; PULSE 62; RESP 17; TEMP 36.6; O2SAT 96
[2023-03-04 16:42] LABS: 25 Hydroxy Vitamin D 19 ng/mL (30-100)
== END 2023-03-08 23:59 | disposition home or self-care (01) ==
PROVIDERS: Nurse Practitioner Family; PCP Family Medicine; Visit Provider Internal Medicine Medical Oncology
DX: C50.111 Malignant neoplasm of central portion of right female breast (principal); C79.51 Secondary malignant neoplasm of bone; R63.0 Anorexia; F17.210 Nicotine dependence, cigarettes, uncomplicated; Z53.9 Procedure and treatment not carried out, unspecified reason; Z17.0 Estrogen receptor positive status [ER+]; E55.9 Vitamin D deficiency, unspecified
CPT/HCPCS: 36415; 80053; 82306; 85025; 86300; 96365; 99214; J3489

== ENCOUNTER 2023-03-19 15:39 | Outpatient (RCR) | payer MEDICARE, MEDICAID, SELFPAY | END 2023-03-19 23:59 | disposition home or self-care (01) | LOC: SPT 15:39 | PROVIDERS: PCP Family Medicine; Visit Provider Physician Assistant | DX: M25.511 Pain in right shoulder (principal) | CPT/HCPCS: 97161 ==

== ENCOUNTER 2023-04-01 13:53 | Oncology outpatient (recurring) (ONCR) | payer MEDICARE, MEDICAID, SELFPAY ==
[2023-04-01 14:06] VITALS: BP 115/58; PULSE 75; RESP 16; TEMP 36.3; O2SAT 95
[2023-04-01 14:23] LABS: Basophils # 0.1 10^3/uL (0.0-0.1); Basophils % 2.9 %; Eosinophils % 0.7 %; Hematocrit 37.9 % (36-47); Lymphocytes # 1.5 10^3/uL (0.8-4.8); Lymphocytes % 52.1 %; Mean Corpuscular HGB Conc 33.2 g/dL (30-55); Mean Corpuscular Volume 105.3 fl (85-98); Mean Platelet Volume 9.3 fL (7.4-10.4); Monocytes # 0.1 10^3/uL (0.2-0.9); Monocytes % 4.3 %; Neutrophils # 1.11 10^3/uL (1.8-7.7); Neutrophils % 39.6 %; Nucleated Red Blood Cells % 0 %; Platelet Count 372 10^3/cmm (157-399); Red Cell Distribution Width 14.8 % (12.1-15.1)
[2023-04-01 15:08] LABS: 25 Hydroxy Vitamin D 22 ng/mL (30-100); Alanine Aminotransferase 14 U/L (0-33); Albumin Level 4.1 g/dL (3.5-5.2); Alkaline Phosphatase 78 U/L (35-105); Aspartate Amino Transferase 18 U/L (0-32); Blood Urea Nitrogen 12 mg/dL (8-23); CA 15-3 257.1 U/mL (0-25); Calcium 8.8 mg/dL (8.5-10.5); Carbon Dioxide 26 mmol/L (22-29); Chloride 104 mmol/L (98-107); Globulin 2.4 g/dL (1.3-4.6); Glomerular Filtration Rate 123.4 mL/min (90-130); Glucose 127 mg/dL (65-115); Osmolality Calculated 287 mOsm/kg (285-295); Sodium 138 mmol/L (136-145); Total Bilirubin 0.4 mg/dL (0.15-1.2); Total Protein 6.5 g/dL (6.6-8.7)
[2023-04-01 15:14] LABS: Anion Gap 12.1 (5-19); Potassium 4.1 mmol/L (3.5-5.1)
[2023-04-01] MEDS: zoledronic acid 4 MG in sodium chloride 0.9% (100 ml) 100 ML 420 MG IV (16:09)
[2023-04-01 16:35] VITALS: BP 147/85; PULSE 62; TEMP 35.7; O2SAT 97
== END 2023-04-08 23:59 | disposition home or self-care (01) ==
PROVIDERS: Nurse Practitioner Family; PCP Family Medicine; Visit Provider Internal Medicine Medical Oncology
DX: C50.111 Malignant neoplasm of central portion of right female breast (principal); C79.51 Secondary malignant neoplasm of bone; R63.0 Anorexia; F17.210 Nicotine dependence, cigarettes, uncomplicated
CPT/HCPCS: 80053; 82306; 85025; 86300; 96365; 99214; J3489

== ENCOUNTER 2023-05-07 14:01 | Oncology outpatient (recurring) (ONCR) | payer MEDICARE, MEDICAID, SELFPAY ==
[2023-05-07 14:18] VITALS: BP 121/68; PULSE 77; RESP 16; TEMP 36; O2SAT 95
[2023-05-07 14:50] LABS: Basophils # 0.1 10^3/uL (0.0-0.1); Basophils % 1.9 %; Eosinophils % 0.6 %; Hematocrit 39.5 % (36-47); Lymphocytes # 1.6 10^3/uL (0.8-4.8); Lymphocytes % 49.4 %; Mean Corpuscular HGB Conc 33.4 g/dL (30-55); Mean Corpuscular Hemoglobin 35.4 pg (27-33); Mean Corpuscular Volume 105.9 fl (85-98); Mean Platelet Volume 9.7 fL (7.4-10.4); Monocytes # 0.2 10^3/uL (0.2-0.9); Monocytes % 6.1 %; Neutrophils # 1.32 10^3/uL (1.8-7.7); Nucleated Red Blood Cells % 0 %; Platelet Count 254 10^3/cmm (157-399); Red Blood Count 3.73 10^6/uL (3.85-5.65); Red Cell Distribution Width 13.6 % (12.1-15.1); White Blood Count 3.14 10^3/uL (3.29-11.43)
[2023-05-07 16:13] LABS: Alanine Aminotransferase 13 U/L (0-33); Albumin Level 4.3 g/dL (3.5-5.2); Alkaline Phosphatase 71 U/L (35-105); Anion Gap 13.7 (5-19); Aspartate Amino Transferase 19 U/L (0-32); Blood Urea Nitrogen 7 mg/dL (8-23); CA 15-3 157.6 U/mL (0-25); Calcium 8.8 mg/dL (8.5-10.5); Carbon Dioxide 26 mmol/L (22-29); Chloride 104 mmol/L (98-107); Globulin 2.5 g/dL (1.3-4.6); Glucose 116 mg/dL (65-115); Osmolality Calculated 289 mOsm/kg (285-295); Potassium 3.7 mmol/L (3.5-5.1); Sodium 140 mmol/L (136-145); Total Bilirubin 0.4 mg/dL (0.15-1.2); Total Protein 6.8 g/dL (6.6-8.7)
[2023-05-07] MEDS: zoledronic acid 4 MG in sodium chloride 0.9% (100 ml) 100 ML 420 MG IV (16:26)
[2023-05-07 16:50] VITALS: BP 114/71; PULSE 65; O2SAT 95
== END 2023-05-08 23:59 | disposition home or self-care (01) ==
PROVIDERS: Nurse Practitioner Family; PCP Family Medicine; Visit Provider Internal Medicine Medical Oncology
DX: C50.111 Malignant neoplasm of central portion of right female breast (principal); C79.51 Secondary malignant neoplasm of bone; R63.0 Anorexia; F17.210 Nicotine dependence, cigarettes, uncomplicated
CPT/HCPCS: 80053; 85025; 86300; 96365; 99214; J3489

== ENCOUNTER 2023-06-04 13:29 | Oncology outpatient (recurring) (ONCR) | payer MEDICARE, MEDICAID, SELFPAY ==
[2023-06-04 13:56] VITALS: BP 123/70; PULSE 70; RESP 16; TEMP 36.6; O2SAT 97
[2023-06-04 14:15] LABS: Basophils # 0.1 10^3/uL (0.0-0.1); Basophils % 2.3 %; Eosinophils % 0.8 %; Lymphocytes # 1.4 10^3/uL (0.8-4.8); Lymphocytes % 53.8 %; Mean Corpuscular HGB Conc 33.5 g/dL (30-55); Mean Corpuscular Hemoglobin 35.4 pg (27-33); Mean Corpuscular Volume 105.8 fl (85-98); Mean Platelet Volume 9.6 fL (7.4-10.4); Monocytes # 0.2 10^3/uL (0.2-0.9); Monocytes % 7.6 %; Neutrophils % 35.1 %; Nucleated Red Blood Cells % 0 %; Platelet Count 259 10^3/cmm (157-399); Red Blood Count 3.78 10^6/uL (3.85-5.65); Red Cell Distribution Width 13.6 % (12.1-15.1); White Blood Count 2.62 10^3/uL (3.29-11.43)
[2023-06-04 14:25] LABS: Neutrophils # 0.92 10^3/uL (1.8-7.7)
[2023-06-04 14:46] LABS: Alanine Aminotransferase 13 U/L (0-33); Albumin Level 4.4 g/dL (3.5-5.2); Alkaline Phosphatase 72 U/L (35-105); Blood Urea Nitrogen 7 mg/dL (8-23); CA 15-3 131.8 U/mL (0-25); Calcium 9.1 mg/dL (8.5-10.5); Carbon Dioxide 24 mmol/L (22-29); Chloride 103 mmol/L (98-107); Globulin 2.7 g/dL (1.3-4.6); Glucose 85 mg/dL (65-115); Osmolality Calculated 287 mOsm/kg (285-295); Sodium 140 mmol/L (136-145); Total Bilirubin 0.4 mg/dL (0.15-1.2); Total Protein 7.1 g/dL (6.6-8.7)
[2023-06-04 14:50] LABS: Anion Gap 17.1 (5-19); Aspartate Amino Transferase 21 U/L (0-32); Potassium 4.1 mmol/L (3.5-5.1)
[2023-06-04] MEDS: zoledronic acid 4 MG in sodium chloride 0.9% (100 ml) 100 ML 420 MG IV (15:27)
[2023-06-04 16:00] VITALS: BP 131/80; PULSE 62; RESP 17; TEMP 36.1; O2SAT 99
== END 2023-06-08 23:59 | disposition home or self-care (01) ==
PROVIDERS: Nurse Practitioner Family; PCP Family Medicine; Visit Provider Internal Medicine Medical Oncology
DX: C50.111 Malignant neoplasm of central portion of right female breast (principal); C79.51 Secondary malignant neoplasm of bone; R63.0 Anorexia; F17.210 Nicotine dependence, cigarettes, uncomplicated
CPT/HCPCS: 80053; 85025; 86300; 96365; 99214; J3489

== ENCOUNTER 2023-06-16 14:23 | Oncology outpatient (recurring) (ONCR) | payer MEDICARE, MEDICAID, SELFPAY ==
[2023-06-16 14:31] LABS: Basophils # 0.1 10^3/uL (0.0-0.1); Basophils % 1.6 %; Eosinophils % 0.9 %; Hematocrit 42.7 % (36-47); Lymphocytes # 2.3 10^3/uL (0.8-4.8); Lymphocytes % 51.1 %; Mean Corpuscular HGB Conc 33.5 g/dL (30-55); Mean Corpuscular Hemoglobin 35.9 pg (27-33); Mean Corpuscular Volume 107.3 fl (85-98); Mean Platelet Volume 9.4 fL (7.4-10.4); Monocytes # 0.5 10^3/uL (0.2-0.9); Monocytes % 10.7 %; Neutrophils % 35.5 %; Nucleated Red Blood Cells % 0 %; Platelet Count 279 10^3/cmm (157-399); Red Blood Count 3.98 10^6/uL (3.85-5.65); Red Cell Distribution Width 13.8 % (12.1-15.1)
[2023-06-16 14:52] LABS: Alanine Aminotransferase 14 U/L (0-33); Albumin Level 4.4 g/dL (3.5-5.2); Alkaline Phosphatase 74 U/L (35-105); Anion Gap 15.7 (5-19); Aspartate Amino Transferase 19 U/L (0-32); Blood Urea Nitrogen 9 mg/dL (8-23); Calcium 9.1 mg/dL (8.5-10.5); Carbon Dioxide 25 mmol/L (22-29); Chloride 102 mmol/L (98-107); Globulin 3.1 g/dL (1.3-4.6); Glomerular Filtration Rate 123.4 mL/min (90-130); Glucose 88 mg/dL (65-115); Osmolality Calculated 286 mOsm/kg (285-295); Potassium 3.7 mmol/L (3.5-5.1); Sodium 139 mmol/L (136-145); Total Bilirubin 0.2 mg/dL (0.15-1.2); Total Protein 7.5 g/dL (6.6-8.7)
== END 2023-07-09 23:59 | disposition home or self-care (01) ==
LOC: ONCMED 14:24
PROVIDERS: Nurse Practitioner Family; PCP Family Medicine; Visit Provider Internal Medicine Medical Oncology
DX: C50.111 Malignant neoplasm of central portion of right female breast (principal)
CPT/HCPCS: 36415; 80053; 85025

== ENCOUNTER 2023-07-14 13:21 | Oncology outpatient (recurring) (ONCR) | payer MEDICARE, MEDICAID, SELFPAY ==
[2023-07-14 14:06] LABS: Basophils # 0.1 10^3/uL (0.0-0.1); Basophils % 1.8 %; Eosinophils % 0.9 %; Lymphocytes # 1.8 10^3/uL (0.8-4.8); Mean Corpuscular HGB Conc 33.8 g/dL (30-55); Mean Corpuscular Hemoglobin 35.7 pg (27-33); Mean Corpuscular Volume 105.8 fl (85-98); Mean Platelet Volume 9.8 fL (7.4-10.4); Monocytes # 0.3 10^3/uL (0.2-0.9); Monocytes % 9.3 %; Neutrophils # 1.15 10^3/uL (1.8-7.7); Neutrophils % 34.7 %; Nucleated Red Blood Cells % 0 %; Platelet Count 248 10^3/cmm (157-399); Red Blood Count 3.78 10^6/uL (3.85-5.65); White Blood Count 3.32 10^3/uL (3.29-11.43)
[2023-07-14 14:55] LABS: Alanine Aminotransferase 15 U/L (0-33); Albumin Level 4.3 g/dL (3.5-5.2); Alkaline Phosphatase 60 U/L (35-105); Blood Urea Nitrogen 8 mg/dL (8-23); CA 15-3 89.8 U/mL (0-25); Calcium 8.9 mg/dL (8.5-10.5); Carbon Dioxide 26 mmol/L (22-29); Chloride 104 mmol/L (98-107); Globulin 2.7 g/dL (1.3-4.6); Glomerular Filtration Rate 123.4 mL/min (90-130); Glucose 89 mg/dL (65-115); Osmolality Calculated 288 mOsm/kg (285-295); Sodium 140 mmol/L (136-145); Total Bilirubin 0.2 mg/dL (0.15-1.2)
[2023-07-14 15:13] LABS: Aspartate Amino Transferase 21 U/L (0-32)
[2023-07-14] MEDS: zoledronic acid (Zometa) 4 MG/100 ML PIGGYBACK 400 MG IV (15:54)
== END 2023-08-07 23:59 | disposition home or self-care (01) ==
PROVIDERS: Nurse Practitioner Family; PCP Family Medicine; Visit Provider Internal Medicine Medical Oncology
DX: C50.111 Malignant neoplasm of central portion of right female breast (principal); Z17.0 Estrogen receptor positive status [ER+]; F17.210 Nicotine dependence, cigarettes, uncomplicated; C79.51 Secondary malignant neoplasm of bone; Z79.899 Other long term (current) drug therapy; G89.3 Neoplasm related pain (acute) (chronic); F06.8 Other specified mental disorders due to known physiological condition; T50.995A Adverse effect of other drugs, medicaments and biological substances, initial encounter
CPT/HCPCS: 36415; 80053; 85025; 86300; 96365; 99214; J3489

== ENCOUNTER 2023-08-11 12:46 | Oncology outpatient (recurring) (ONCR) | payer MEDICARE, MEDICAID, SELFPAY ==
[2023-08-11 13:07] LABS: Basophils # 0.1 10^3/uL (0.0-0.1); Basophils % 1.8 %; Eosinophils % 1.2 %; Hematocrit 36.9 % (36-47); Lymphocytes # 1.7 10^3/uL (0.8-4.8); Lymphocytes % 50.8 %; Mean Corpuscular HGB Conc 33.6 g/dL (30-55); Mean Corpuscular Hemoglobin 35.8 pg (27-33); Mean Corpuscular Volume 106.6 fl (85-98); Mean Platelet Volume 9.5 fL (7.4-10.4); Monocytes # 0.4 10^3/uL (0.2-0.9); Monocytes % 10.6 %; Neutrophils # 1.15 10^3/uL (1.8-7.7); Nucleated Red Blood Cells % 0 %; Platelet Count 203 10^3/cmm (157-399); Red Blood Count 3.46 10^6/uL (3.85-5.65); Red Cell Distribution Width 13.6 % (12.1-15.1); White Blood Count 3.29 10^3/uL (3.29-11.43)
[2023-08-11 13:37] LABS: Alanine Aminotransferase 11 U/L (0-33); Albumin Level 3.9 g/dL (3.5-5.2); Alkaline Phosphatase 52 U/L (35-105); Aspartate Amino Transferase 15 U/L (0-32); Blood Urea Nitrogen 7 mg/dL (8-23); CA 15-3 72.2 U/mL (0-25); Calcium 8.4 mg/dL (8.5-10.5); Carbon Dioxide 26 mmol/L (22-29); Chloride 103 mmol/L (98-107); Globulin 2.2 g/dL (1.3-4.6); Glomerular Filtration Rate 123.4 mL/min (90-130); Glucose 113 mg/dL (65-115); Osmolality Calculated 279 mOsm/kg (285-295); Sodium 135 mmol/L (136-145); Total Bilirubin 0.2 mg/dL (0.15-1.2); Total Protein 6.1 g/dL (6.6-8.7)
[2023-08-11] MEDS: zoledronic acid (Zometa) 4 MG/100 ML PIGGYBACK 400 MG IV (15:15)
[2023-08-11 15:31] VITALS: BP 110/62; PULSE 71; RESP 18; TEMP 36.9; O2SAT 95
== END 2023-09-07 23:59 | disposition home or self-care (01) ==
PROVIDERS: PCP Family Medicine; Visit Provider Internal Medicine Medical Oncology
DX: Z17.0 Estrogen receptor positive status [ER+]; F17.210 Nicotine dependence, cigarettes, uncomplicated; C79.51 Secondary malignant neoplasm of bone; Z79.899 Other long term (current) drug therapy; C50.111 Malignant neoplasm of central portion of right female breast
CPT/HCPCS: 36415; 80053; 85025; 86300; 96365; 99214; J3489

== ENCOUNTER 2023-10-06 13:15 | Oncology outpatient (recurring) (ONCR) | payer MEDICARE, MEDICAID, SELFPAY ==
[2023-09-08 13:01] LABS: Basophils # 0.1 10^3/uL (0.0-0.1); Basophils % 2.6 %; Eosinophils % 0.4 %; Hematocrit 39.9 % (36-47); Lymphocytes # 1.4 10^3/uL (0.8-4.8); Lymphocytes % 52.4 %; Mean Corpuscular HGB Conc 33.8 g/dL (30-55); Mean Corpuscular Volume 106.4 fl (85-98); Mean Platelet Volume 9.7 fL (7.4-10.4); Monocytes # 0.3 10^3/uL (0.2-0.9); Monocytes % 9.3 %; Neutrophils % 35.3 %; Nucleated Red Blood Cells % 0 %; Platelet Count 202 10^3/cmm (157-399); Red Blood Count 3.75 10^6/uL (3.85-5.65); Red Cell Distribution Width 13.8 % (12.1-15.1); White Blood Count 2.69 10^3/uL (3.29-11.43)
[2023-09-08 13:11] LABS: Neutrophils # 0.95 10^3/uL (1.8-7.7)
[2023-09-08 13:35] LABS: Alanine Aminotransferase 10 U/L (0-33); Albumin Level 4.2 g/dL (3.5-5.2); Alkaline Phosphatase 59 U/L (35-105); Aspartate Amino Transferase 15 U/L (0-32); Blood Urea Nitrogen 8 mg/dL (8-23); CA 15-3 71.7 U/mL (0-25); Calcium 9.2 mg/dL (8.5-10.5); Carbon Dioxide 27 mmol/L (22-29); Chloride 105 mmol/L (98-107); Globulin 2.5 g/dL (1.3-4.6); Glomerular Filtration Rate 99.7 mL/min (90-130); Glucose 146 mg/dL (65-115); Osmolality Calculated 295 mOsm/kg (285-295); Sodium 142 mmol/L (136-145); Total Bilirubin 0.2 mg/dL (0.15-1.2); Total Protein 6.7 g/dL (6.6-8.7)
[2023-09-08] MEDS: zoledronic acid (Zometa) 4 MG/100 ML PIGGYBACK 400 MG IV (14:30)
[2023-09-08 14:51] VITALS: BP 122/54; PULSE 69; RESP 16; O2SAT 94
[2023-09-08 16:32] LABS: 25 Hydroxy Vitamin D 16 ng/mL (30-100)
[2023-10-06 13:27] LABS: Basophils # 0.1 10^3/uL (0.0-0.1); Basophils % 1.7 %; Eosinophils % 1.2 %; Hematocrit 36.5 % (36-47); Lymphocytes # 1.7 10^3/uL (0.8-4.8); Lymphocytes % 49.9 %; Mean Corpuscular Hemoglobin 36.3 pg (27-33); Mean Corpuscular Volume 106.7 fl (85-98); Mean Platelet Volume 9.6 fL (7.4-10.4); Monocytes # 0.4 10^3/uL (0.2-0.9); Monocytes % 10.1 %; Neutrophils # 1.27 10^3/uL (1.8-7.7); Neutrophils % 36.8 %; Nucleated Red Blood Cells % 0 %; Platelet Count 247 10^3/cmm (157-399); Red Blood Count 3.42 10^6/uL (3.85-5.65); Red Cell Distribution Width 14.2 % (12.1-15.1); White Blood Count 3.45 10^3/uL (3.29-11.43)
[2023-10-06 14:00] LABS: Alanine Aminotransferase 13 U/L (0-33); Albumin Level 4.1 g/dL (3.5-5.2); Alkaline Phosphatase 53 U/L (35-105); Aspartate Amino Transferase 26 U/L (0-32); Blood Urea Nitrogen 7 mg/dL (8-23); CA 15-3 63.1 U/mL (0-25); Calcium 8.4 mg/dL (8.5-10.5); Carbon Dioxide 26 mmol/L (22-29); Chloride 108 mmol/L (98-107); Creatinine Clr Calc Pharmacy 61.4696; Globulin 2.2 g/dL (1.3-4.6); Glomerular Filtration Rate 123.1 mL/min (90-130); Glucose 119 mg/dL (65-115); Osmolality Calculated 293 mOsm/kg (285-295); Sodium 142 mmol/L (136-145); Total Bilirubin 0.2 mg/dL (0.15-1.2); Total Protein 6.3 g/dL (6.6-8.7)
[2023-10-06 14:20] LABS: Anion Gap 12.1 (5-19); Potassium 4.1 mmol/L (3.5-5.1)
[2023-10-06] MEDS: zoledronic acid (Zometa) 4 MG/100 ML PIGGYBACK 400 MG IV (15:04)
[2023-10-06 15:25] VITALS: BP 114/72; PULSE 65; RESP 16; TEMP 36.9; O2SAT 99
== END 2023-10-07 23:59 | disposition home or self-care (01) ==
PROVIDERS: Nurse Practitioner Family; PCP Family Medicine; Visit Provider Internal Medicine Medical Oncology
DX: Z53.9 Procedure and treatment not carried out, unspecified reason (principal); C50.111 Malignant neoplasm of central portion of right female breast; Z17.0 Estrogen receptor positive status [ER+]; C79.51 Secondary malignant neoplasm of bone; E55.9 Vitamin D deficiency, unspecified; Z79.899 Other long term (current) drug therapy; Z79.83 Long term (current) use of bisphosphonates
CPT/HCPCS: 80053; 82306; 85025; 86300; 96365; 99214; J3489

== ENCOUNTER 2023-11-04 12:27 | Oncology outpatient (recurring) (ONCR) | payer MEDICARE, MEDICAID, SELFPAY ==
[2023-11-04 12:43] LABS: Basophils # 0.1 10^3/uL (0.0-0.1); Basophils % 1.9 %; Hematocrit 37.2 % (36-47); Lymphocytes # 1.6 10^3/uL (0.8-4.8); Lymphocytes % 51.1 %; Mean Corpuscular HGB Conc 34.1 g/dL (30-55); Mean Corpuscular Hemoglobin 36.3 pg (27-33); Mean Corpuscular Volume 106.3 fl (85-98); Mean Platelet Volume 9.5 fL (7.4-10.4); Monocytes # 0.3 10^3/uL (0.2-0.9); Monocytes % 10.9 %; Neutrophils # 1.09 10^3/uL (1.8-7.7); Neutrophils % 35.1 %; Nucleated Red Blood Cells % 0 %; Platelet Count 237 10^3/cmm (157-399); Red Cell Distribution Width 13.9 % (12.1-15.1); White Blood Count 3.11 10^3/uL (3.29-11.43)
[2023-11-04 12:59] LABS: Alanine Aminotransferase 10 U/L (0-33); Albumin Level 4.1 g/dL (3.5-5.2); Alkaline Phosphatase 49 U/L (35-105); Aspartate Amino Transferase 19 U/L (0-32); Blood Urea Nitrogen 11 mg/dL (8-23); Carbon Dioxide 26 mmol/L (22-29); Chloride 104 mmol/L (98-107); Globulin 2.5 g/dL (1.3-4.6); Glomerular Filtration Rate 99.7 mL/min (90-130); Glucose 108 mg/dL (65-115); Osmolality Calculated 288 mOsm/kg (285-295); Sodium 139 mmol/L (136-145); Total Bilirubin 0.3 mg/dL (0.15-1.2); Total Protein 6.6 g/dL (6.6-8.7)
[2023-11-04 13:51] LABS: CA 15-3 72.2 U/mL (0-25)
[2023-11-04] MEDS: zoledronic acid (Zometa) 4 MG/100 ML PIGGYBACK 400 MG IV (14:42)
[2023-11-04 15:07] VITALS: BP 107/66; PULSE 64; RESP 17; TEMP 36.3; O2SAT 97
== END 2023-11-07 23:59 | disposition home or self-care (01) ==
PROVIDERS: Nurse Practitioner Family; PCP Family Medicine; Visit Provider Internal Medicine Medical Oncology
DX: C50.111 Malignant neoplasm of central portion of right female breast; Z53.9 Procedure and treatment not carried out, unspecified reason; C79.51 Secondary malignant neoplasm of bone; Z17.0 Estrogen receptor positive status [ER+]; Z79.899 Other long term (current) drug therapy; Z87.891 Personal history of nicotine dependence; E55.9 Vitamin D deficiency, unspecified
CPT/HCPCS: 80053; 85025; 86300; 96365; 99214; J3489

== ENCOUNTER 2023-12-02 12:46 | Oncology outpatient (recurring) (ONCR) | payer MEDICARE, MEDICAID, SELFPAY ==
[2023-12-02 13:09] LABS: Basophils # 0.1 10^3/uL (0.0-0.1); Basophils % 1.7 %; Eosinophils % 0.7 %; Hematocrit 37.6 % (36-47); Lymphocytes # 1.7 10^3/uL (0.8-4.8); Lymphocytes % 54.6 %; Mean Corpuscular Hemoglobin 36.1 pg (27-33); Mean Corpuscular Volume 105.9 fl (85-98); Mean Platelet Volume 9.2 fL (7.4-10.4); Monocytes # 0.3 10^3/uL (0.2-0.9); Monocytes % 9.9 %; Neutrophils # 0.99 10^3/uL (1.8-7.7); Neutrophils % 32.8 %; Nucleated Red Blood Cells % 0 %; Platelet Count 253 10^3/cmm (157-399); Red Blood Count 3.55 10^6/uL (3.85-5.65); Red Cell Distribution Width 13.9 % (12.1-15.1); White Blood Count 3.02 10^3/uL (3.29-11.43)
[2023-12-02 13:48] LABS: 25 Hydroxy Vitamin D 21 ng/mL (30-100); Alanine Aminotransferase 13 U/L (0-33); Albumin Level 4.4 g/dL (3.5-5.2); Alkaline Phosphatase 44 U/L (35-105); Aspartate Amino Transferase 17 U/L (0-32); Blood Urea Nitrogen 12 mg/dL (8-23); Calcium 9.3 mg/dL (8.5-10.5); Carbon Dioxide 25 mmol/L (22-29); Chloride 104 mmol/L (98-107); Globulin 2.5 g/dL (1.3-4.6); Glomerular Filtration Rate 99.7 mL/min (90-130); Glucose 111 mg/dL (65-115); Osmolality Calculated 288 mOsm/kg (285-295); Sodium 139 mmol/L (136-145); Total Bilirubin 0.3 mg/dL (0.15-1.2); Total Protein 6.9 g/dL (6.6-8.7)
[2023-12-02] MEDS: zoledronic acid (Zometa) 4 MG/100 ML PIGGYBACK 400 MG IV (15:37)
[2023-12-02 16:01] VITALS: BP 132/77; PULSE 66; RESP 17; TEMP 36.5; O2SAT 96
== END 2023-12-07 23:59 | disposition home or self-care (01) ==
PROVIDERS: Nurse Practitioner Family; PCP Family Medicine; Visit Provider Internal Medicine Medical Oncology
DX: C50.111 Malignant neoplasm of central portion of right female breast; Z17.0 Estrogen receptor positive status [ER+]; F17.210 Nicotine dependence, cigarettes, uncomplicated; C79.51 Secondary malignant neoplasm of bone; Z79.899 Other long term (current) drug therapy; Z53.9 Procedure and treatment not carried out, unspecified reason; E55.9 Vitamin D deficiency, unspecified
CPT/HCPCS: 80053; 82306; 85025; 86300; 96374; 99214; J3489

== ENCOUNTER 2024-01-06 12:31 | Oncology outpatient (recurring) (ONCR) | payer MEDICARE, MEDICAID, SELFPAY ==
[2024-01-06 12:52] LABS: Basophils # 0.1 10^3/uL (0.0-0.1); Basophils % 1.8 %; Eosinophils % 0.6 %; Hematocrit 37.9 % (36-47); Lymphocytes # 0.9 10^3/uL (0.8-4.8); Mean Corpuscular HGB Conc 33.8 g/dL (30-55); Mean Corpuscular Hemoglobin 36.1 pg (27-33); Mean Corpuscular Volume 106.8 fl (85-98); Mean Platelet Volume 9.2 fL (7.4-10.4); Monocytes # 0.2 10^3/uL (0.2-0.9); Monocytes % 5.5 %; Neutrophils % 63.8 %; Nucleated Red Blood Cells % 0 %; Platelet Count 327 10^3/cmm (157-399); Red Blood Count 3.55 10^6/uL (3.85-5.65); Red Cell Distribution Width 13.1 % (12.1-15.1); White Blood Count 3.29 10^3/uL (3.29-11.43)
[2024-01-06 13:21] LABS: Alanine Aminotransferase 16 U/L (0-33); Albumin Level 4.2 g/dL (3.5-5.2); Alkaline Phosphatase 45 U/L (35-105); Aspartate Amino Transferase 19 U/L (0-32); Blood Urea Nitrogen 14 mg/dL (8-23); CA 15-3 105.5 U/mL (0-25); Calcium 8.8 mg/dL (8.5-10.5); Carbon Dioxide 25 mmol/L (22-29); Chloride 106 mmol/L (98-107); Globulin 2.6 g/dL (1.3-4.6); Glomerular Filtration Rate 123.1 mL/min (90-130); Glucose 104 mg/dL (65-115); Osmolality Calculated 291 mOsm/kg (285-295); Sodium 140 mmol/L (136-145); Total Bilirubin 0.4 mg/dL (0.15-1.2); Total Protein 6.8 g/dL (6.6-8.7)
[2024-01-06 13:22] LABS: Anion Gap 13.2 (5-19); Potassium 4.2 mmol/L (3.5-5.1)
[2024-01-06] MEDS: zoledronic acid (Zometa) 4 MG/100 ML PIGGYBACK 400 MG IV (14:23)
[2024-01-06 14:39] VITALS: BP 121/77; PULSE 65; RESP 16; TEMP 36.6; O2SAT 94
== END 2024-01-07 23:59 | disposition home or self-care (01) ==
PROVIDERS: Nurse Practitioner Family; PCP Family Medicine; Visit Provider Internal Medicine Medical Oncology
DX: C50.111 Malignant neoplasm of central portion of right female breast; C79.51 Secondary malignant neoplasm of bone; Z17.0 Estrogen receptor positive status [ER+]; F17.210 Nicotine dependence, cigarettes, uncomplicated; Z79.899 Other long term (current) drug therapy
CPT/HCPCS: 80053; 85025; 86300; 96365; 99214; J3489

== ENCOUNTER 2024-02-03 12:51 | Oncology outpatient (recurring) (ONCR) | payer MEDICARE, MEDICAID, SELFPAY ==
[2024-02-03 13:09] LABS: Basophils # 0.1 10^3/uL (0.0-0.1); Basophils % 2.7 %; Hematocrit 35.8 % (36-47); Lymphocytes # 1.2 10^3/uL (0.8-4.8); Mean Corpuscular HGB Conc 33.8 g/dL (30-55); Mean Corpuscular Hemoglobin 36.8 pg (27-33); Mean Corpuscular Volume 108.8 fl (85-98); Mean Platelet Volume 9.4 fL (7.4-10.4); Monocytes # 0.2 10^3/uL (0.2-0.9); Monocytes % 5.4 %; Neutrophils # 1.53 10^3/uL (1.8-7.7); Neutrophils % 51.9 %; Nucleated Red Blood Cells % 0 %; Platelet Count 334 10^3/cmm (157-399); Red Blood Count 3.29 10^6/uL (3.85-5.65); White Blood Count 2.95 10^3/uL (3.29-11.43)
[2024-02-03 15:02] LABS: Alanine Aminotransferase 13 U/L (0-33); Albumin Level 4.3 g/dL (3.5-5.2); Alkaline Phosphatase 49 U/L (35-105); Anion Gap 14.1 (5-19); Aspartate Amino Transferase 19 U/L (0-32); Blood Urea Nitrogen 19 mg/dL (8-23); CA 15-3 126.4 U/mL (0-25); Calcium 8.8 mg/dL (8.5-10.5); Carbon Dioxide 26 mmol/L (22-29); Chloride 105 mmol/L (98-107); Creatinine Clr Calc Pharmacy 59.9058; Globulin 2.1 g/dL (1.3-4.6); Glomerular Filtration Rate 99.7 mL/min (90-130); Glucose 126 mg/dL (65-115); Osmolality Calculated 296 mOsm/kg (285-295); Potassium 4.1 mmol/L (3.5-5.1); Sodium 141 mmol/L (136-145); Total Bilirubin 0.4 mg/dL (0.15-1.2); Total Protein 6.4 g/dL (6.6-8.7)
[2024-02-03] MEDS: zoledronic acid (Zometa) 4 MG/100 ML PIGGYBACK 400 MG IV (15:21)
[2024-02-03 15:39] VITALS: BP 109/60; PULSE 72; RESP 16; TEMP 36.3; O2SAT 94
== END 2024-02-07 23:59 | disposition home or self-care (01) ==
PROVIDERS: PCP Family Medicine; Visit Provider Internal Medicine Medical Oncology
DX: C50.111 Malignant neoplasm of central portion of right female breast; Z17.0 Estrogen receptor positive status [ER+]; Z79.899 Other long term (current) drug therapy; C79.51 Secondary malignant neoplasm of bone; Z79.818 Long term (current) use of other agents affecting estrogen receptors and estrogen levels; Z51.11 Encounter for antineoplastic chemotherapy; Z87.891 Personal history of nicotine dependence
CPT/HCPCS: 80053; 85025; 86300; 96365; 99214; J3489

== ENCOUNTER 2024-03-04 12:00 | Oncology outpatient (recurring) (ONCR) | payer MEDICARE, MEDICAID, SELFPAY ==
[2024-02-23 13:09] LABS: Alanine Aminotransferase 17 U/L (0-33); Albumin Level 4.1 g/dL (3.5-5.2); Alkaline Phosphatase 52 U/L (35-105); Anion Gap 12.2 (5-19); Aspartate Amino Transferase 19 U/L (0-32); Blood Urea Nitrogen 17 mg/dL (8-23); CA 15-3 151.1 U/mL (0-25); Calcium 8.6 mg/dL (8.5-10.5); Carbon Dioxide 26 mmol/L (22-29); Chloride 106 mmol/L (98-107); Globulin 2.2 g/dL (1.3-4.6); Glomerular Filtration Rate 99.7 mL/min (90-130); Glucose 103 mg/dL (65-115); Osmolality Calculated 292 mOsm/kg (285-295); Potassium 4.2 mmol/L (3.5-5.1); Sodium 140 mmol/L (136-145); Total Bilirubin 0.2 mg/dL (0.15-1.2); Total Protein 6.3 g/dL (6.6-8.7)
--- NOTE | 2024-03-02 10:44 | PETR_ITS ---
PROCEDURE INFORMATION: Exam: PET/CT Skull Base to Mid-thigh Exam date and time: 03/02/2024 1:07 PM Age: 68 years old Clinical indication: Condition or disease and abnormal findings; Follow-up oncological assessment; Rising ca15-3 levels, breast cancer LABS AND CLINICAL REPORTS: Glucose: 82 mg/dl Treatment strategy for malignancy (PET staging): Restaging (PS) TECHNIQUE: Imaging protocol: Following at least four-hour fasting and following the injection of radiopharmaceutical, low dose CT images were obtained. Then, PET images were obtained. Attenuation corrected images were constructed using the CT scan. Fused images of PET and CT were reviewed. The standardized uptake values (SUV) reported below are maximum values within a region of interest, expressed in gm/ml. Exam includes orbital meatal line to mid-thigh. Radiopharmaceutical: 10.44 mCi F-18 FDG (Fluorodeoxyglucose), IV. Time of imaging post radiopharmaceutical administration: 1 hour Injection site: Left forearm COMPARISON: PT PET skull to thigh INIT [id number] 11/23/2022 10:45 AM FINDINGS: Brain: Visualized brain has normal physiologic uptake. Pharynx: No abnormal uptake. Larynx: No abnormal uptake. Lungs, pleura and trachea: No abnormal uptake. Heart: Normal physiologic uptake. Mediastinal space: No abnormal uptake. Liver: No abnormal uptake. Gallbladder and biliary ducts: No abnormal uptake. Pancreas: No abnormal uptake. Spleen: No abnormal uptake. Adrenal glands: No abnormal uptake. Kidneys and ureters: Normal physiologic uptake. Nonobstructing right renal calculi are noted. Stomach and bowel: No abnormal uptake. Reproductive: No abnormal uptake. Exophytic soft tissue density likely arising from the uterus on the right is not radiotracer avid suggestive of a leiomyoma measuring 4.5 x 3.7 cm on series 202, image 97. Vasculature: No abnormal uptake. There are diffuse atherosclerotic calcifications. Lymph nodes: No abnormal uptake. Previously noted right external iliac chain lymph nodes are no longer enlarged or radiotracer avid. Skeleton: Radiotracer avid osseous lesions persist, with an overall decrease in uptake since the prior PET-CT. Several of these lesions demonstrate increased sclerosis compared with the prior PET-CT. Examples: Right C1 ring, SUV max 4.2 (previously 8.5) on series 202, image 295; the right C3-C4 facet joint demonstrates an interval increase in uptake posteriorly, SUV max 14.4 (previously 3.2), however, uptake previously noted in the C3 vertebral body has resolved. There is decreased uptake in the right humeral head and neck, SUV max 5.5 (previously 7.9); uptake in the right glenoid is noted, SUV max 9.6 (previously 11.0); new uptake in the lateral T10 vertebral body on the left is noted, SUV max 7.1; uptake in the L2 vertebral body on the right demonstrates an SUV max 12.9 (previously 12.1), with new areas of abnormal uptake posteriorly and anteriorly, SUV max 14.4 on image 158. Previously noted uptake throughout the right iliac bone, right acetabulum and the right superior and inferior pubic rami is decreased geographic distribution, however residual regions of uptake are noted, some of which are more prominent than on the prior examination, for example in the anterior right acetabulum on image 95, SUV max 16.9 (previously 9.3), and in the right inferior pubic ramus medially on image 78, SUV max 31.0 (previously 12.8). A focus of uptake in the region of the posterior right sacroiliac joint which appears to be within the posterior right iliac bone is increased, SUV max 18.5 (previously 5.2) on image 113. Additional areas of previously noted elevated uptake resolved, for example in the sacrum, L1 vertebral body in the left glenoid. Uptake in the left ischial tuberosity is increased on series 202, image 67, SUV max 5.0 (previously 2.6). Right femoral head uptake has resolved. Soft tissues: Previously noted uptake in the right breast subareolar soft tissues has resolved, with interval complete appearing resolution of a previously noted soft tissue density mass in this location. A previously noted soft tissue mass associated with the lesion involving the right iliac bone and right acetabulum has nearly completely resolved and is no longer radiotracer avid. There non radiotracer avid subcutaneous rounded low-density nodules likely representing sebaceous cysts in the posterior chest wall on series 202 between images 231 in 249 similar to the prior examination. METRICS: Mediastinal blood pool: SUV max 2.4, SUV mean 2.0 PET/PET skull to thigh SUBS [id number] IMPRESSION: 1. Findings are consistent with a mixed response to therapy. 2. The previously noted right subareolar radiotracer avid breast masses no longer identified. 3. Multifocal osseous metastatic lesions are noted, some of which demonstrate an interval decrease in uptake, while others demonstrate new or increased uptake compared with the prior PET-CT. 4. Interval near-complete resolution of a soft tissue mass associated with the metastatic lesion involving the right iliac bone and right acetabulum. 5. Interval resolution of right pelvic radiotracer avid lymphadenopathy. 6. Right nephrolithiasis. 7. Additional nonurgent findings as detailed above.
[2024-03-04 12:18] LABS: Basophils # 0.1 10^3/uL (0.0-0.1); Basophils % 2.6 %; Eosinophils % 0.8 %; Hematocrit 38.8 % (36-47); Lymphocytes # 1.2 10^3/uL (0.8-4.8); Lymphocytes % 32.5 %; Mean Corpuscular HGB Conc 32.7 g/dL (30-55); Mean Corpuscular Volume 109.9 fl (85-98); Mean Platelet Volume 9.3 fL (7.4-10.4); Monocytes # 0.4 10^3/uL (0.2-0.9); Monocytes % 9.3 %; Neutrophils # 2.07 10^3/uL (1.8-7.7); Neutrophils % 54.8 %; Nucleated Red Blood Cells % 0 %; Platelet Count 343 10^3/cmm (157-399); Red Blood Count 3.53 10^6/uL (3.85-5.65); Red Cell Distribution Width 12.9 % (12.1-15.1); White Blood Count 3.78 10^3/uL (3.29-11.43)
[2024-03-04 12:46] LABS: Alanine Aminotransferase 14 U/L (0-33); Alkaline Phosphatase 60 U/L (35-105); Anion Gap 14.7 (5-19); Aspartate Amino Transferase 20 U/L (0-32); Blood Urea Nitrogen 7 mg/dL (8-23); Carbon Dioxide 25 mmol/L (22-29); Chloride 105 mmol/L (98-107); Creatinine Clr Calc Pharmacy 59.9058; Globulin 2.4 g/dL (1.3-4.6); Glomerular Filtration Rate 123.1 mL/min (90-130); Glucose 96 mg/dL (65-115); Osmolality Calculated 290 mOsm/kg (285-295); Potassium 3.7 mmol/L (3.5-5.1); Sodium 141 mmol/L (136-145); Total Bilirubin 0.5 mg/dL (0.15-1.2); Total Protein 6.4 g/dL (6.6-8.7)
[2024-03-04] MEDS: zoledronic acid (Zometa) 4 MG/100 ML PIGGYBACK 400 MG IV (14:26)
[2024-03-04 14:54] VITALS: BP 135/83; PULSE 66; RESP 17; TEMP 36.7; O2SAT 97
== END 2024-03-08 23:59 | disposition home or self-care (01) ==
PROVIDERS: Nurse Practitioner; PCP Family Medicine; Visit Provider Internal Medicine Medical Oncology
DX: Z53.9 Procedure and treatment not carried out, unspecified reason (principal); C50.111 Malignant neoplasm of central portion of right female breast; Z79.83 Long term (current) use of bisphosphonates; C79.51 Secondary malignant neoplasm of bone
CPT/HCPCS: 36415; 78815; 80053; 85025; 86300; 96365; 99215; A9552; J3489

== ENCOUNTER 2024-04-01 14:12 | Oncology outpatient (recurring) (ONCR) | payer MEDICARE, MEDICAID, SELFPAY ==
[2024-04-01 14:20] LABS: Basophils # 0.1 10^3/uL (0.0-0.1); Basophils % 1.7 %; Eosinophils % 0.7 %; Hematocrit 35.8 % (36-47); Lymphocytes # 1.4 10^3/uL (0.8-4.8); Lymphocytes % 47.2 %; Mean Corpuscular Hemoglobin 34.7 pg (27-33); Mean Corpuscular Volume 105.3 fl (85-98); Mean Platelet Volume 9.5 fL (7.4-10.4); Monocytes # 0.2 10^3/uL (0.2-0.9); Monocytes % 5.5 %; Neutrophils # 1.29 10^3/uL (1.8-7.7); Neutrophils % 44.6 %; Nucleated Red Blood Cells % 0 %; Platelet Count 160 10^3/cmm (157-399); Red Cell Distribution Width 13.3 % (12.1-15.1)
[2024-04-01 14:58] LABS: Alanine Aminotransferase 16 U/L (0-33); Albumin Level 4.3 g/dL (3.5-5.2); Alkaline Phosphatase 56 U/L (35-105); Anion Gap 12.2 (5-19); Aspartate Amino Transferase 17 U/L (0-32); Blood Urea Nitrogen 17 mg/dL (8-23); CA 15-3 261.8 U/mL (0-25); Calcium 9.2 mg/dL (8.5-10.5); Carbon Dioxide 26 mmol/L (22-29); Chloride 106 mmol/L (98-107); Creatinine Clr Calc Pharmacy 58.2236; Globulin 2.2 g/dL (1.3-4.6); Glomerular Filtration Rate 99.7 mL/min (90-130); Glucose 103 mg/dL (65-115); Osmolality Calculated 292 mOsm/kg (285-295); Potassium 4.2 mmol/L (3.5-5.1); Sodium 140 mmol/L (136-145); Total Bilirubin 0.3 mg/dL (0.15-1.2); Total Protein 6.5 g/dL (6.6-8.7)
[2024-04-01] MEDS: zoledronic acid (Zometa) 4 MG/100 ML PIGGYBACK 400 MG IV (16:38)
[2024-04-01 17:02] VITALS: BP 107/61; PULSE 67; RESP 18; TEMP 36.6; O2SAT 98
== END 2024-04-08 23:59 | disposition home or self-care (01) ==
PROVIDERS: Internal Medicine Hematology & Oncology; PCP Family Medicine; Visit Provider Internal Medicine Medical Oncology
DX: C79.51 Secondary malignant neoplasm of bone; C50.111 Malignant neoplasm of central portion of right female breast; Z17.0 Estrogen receptor positive status [ER+]; Z87.891 Personal history of nicotine dependence; Z79.83 Long term (current) use of bisphosphonates; Z53.9 Procedure and treatment not carried out, unspecified reason
CPT/HCPCS: 80053; 85025; 86300; 96365; 99214; J3489

== ENCOUNTER 2024-04-29 13:29 | Oncology outpatient (recurring) (ONCR) | payer MEDICARE, MEDICAID, SELFPAY ==
[2024-04-29 13:46] LABS: Basophils % 1.7 %; Eosinophils % 1.7 %; Hematocrit 36.1 % (36-47); Lymphocytes # 1.3 10^3/uL (0.8-4.8); Lymphocytes % 53.8 %; Mean Corpuscular Hemoglobin 35.2 pg (27-33); Mean Corpuscular Volume 106.8 fl (85-98); Mean Platelet Volume 9.2 fL (7.4-10.4); Monocytes # 0.2 10^3/uL (0.2-0.9); Monocytes % 8.8 %; Neutrophils % 33.6 %; Nucleated Red Blood Cells % 0 %; Platelet Count 184 10^3/cmm (157-399); Red Blood Count 3.38 10^6/uL (3.85-5.65); Red Cell Distribution Width 14.2 % (12.1-15.1)
[2024-04-29 14:23] LABS: 25 Hydroxy Vitamin D 18 ng/mL (30-100); Alanine Aminotransferase 10 U/L (0-33); Albumin Level 4.2 g/dL (3.5-5.2); Alkaline Phosphatase 58 U/L (35-105); Anion Gap 12.1 (5-19); Aspartate Amino Transferase 17 U/L (0-32); Blood Urea Nitrogen 13 mg/dL (8-23); Calcium 9.4 mg/dL (8.5-10.5); Carbon Dioxide 27 mmol/L (22-29); Chloride 103 mmol/L (98-107); Globulin 2.4 g/dL (1.3-4.6); Glomerular Filtration Rate 83.5 mL/min (90-130); Glucose 90 mg/dL (65-115); Osmolality Calculated 286 mOsm/kg (285-295); Potassium 4.1 mmol/L (3.5-5.1); Sodium 138 mmol/L (136-145); Total Bilirubin 0.4 mg/dL (0.15-1.2); Total Protein 6.6 g/dL (6.6-8.7)
[2024-04-29 14:42] LABS: Neutrophils # 0.81 10^3/uL (1.8-7.7)
[2024-04-29 14:45] LABS: CA 15-3 341.2 U/mL (0-25)
[2024-04-29 14:57] LABS: Lactate Dehydrogenase 215 U/L (135-214)
[2024-04-29] MEDS: zoledronic acid (Zometa) 4 MG/100 ML PIGGYBACK 400 MG IV (16:03)
== END 2024-05-08 23:59 | disposition home or self-care (01) ==
PROVIDERS: Internal Medicine Hematology & Oncology; PCP Family Medicine; Visit Provider Internal Medicine Medical Oncology
DX: C79.51 Secondary malignant neoplasm of bone; C50.111 Malignant neoplasm of central portion of right female breast; Z17.0 Estrogen receptor positive status [ER+]; Z79.899 Other long term (current) drug therapy; Z79.811 Long term (current) use of aromatase inhibitors; Z87.891 Personal history of nicotine dependence; Z79.83 Long term (current) use of bisphosphonates; D70.1 Agranulocytosis secondary to cancer chemotherapy; T45.1X5A Adverse effect of antineoplastic and immunosuppressive drugs, initial encounter
CPT/HCPCS: 80053; 82306; 83615; 85025; 86300; 96365; 99214; J3489

== ENCOUNTER 2024-06-08 13:45 | Oncology outpatient (recurring) (ONCR) | payer MEDICARE, MEDICAID, SELFPAY ==
[2024-05-10 14:06] LABS: Basophils # 0.1 10^3/uL (0.0-0.1); Basophils % 2.4 %; Eosinophils # 0.1 10^3/uL (0.0-0.8); Eosinophils % 1.5 %; Hematocrit 35.6 % (36-47); Lymphocytes # 1.6 10^3/uL (0.8-4.8); Lymphocytes % 46.4 %; Mean Corpuscular HGB Conc 33.4 g/dL (30-55); Mean Corpuscular Hemoglobin 35.5 pg (27-33); Mean Corpuscular Volume 106.3 fl (85-98); Mean Platelet Volume 8.9 fL (7.4-10.4); Monocytes # 0.4 10^3/uL (0.2-0.9); Monocytes % 12.4 %; Neutrophils # 1.26 10^3/uL (1.8-7.7); Neutrophils % 37.3 %; Nucleated Red Blood Cells % 0 %; Platelet Count 275 10^3/cmm (157-399); Red Blood Count 3.35 10^6/uL (3.85-5.65); Red Cell Distribution Width 14.6 % (12.1-15.1); White Blood Count 3.38 10^3/uL (3.29-11.43)
[2024-05-10 14:35] LABS: Alanine Aminotransferase 8 U/L (0-33); Albumin Level 4.2 g/dL (3.5-5.2); Alkaline Phosphatase 57 U/L (35-105); Aspartate Amino Transferase 18 U/L (0-32); Blood Urea Nitrogen 11 mg/dL (8-23); Calcium 9.2 mg/dL (8.5-10.5); Carbon Dioxide 27 mmol/L (22-29); Chloride 103 mmol/L (98-107); Creatinine Clr Calc Pharmacy 58.4192; Globulin 2.6 g/dL (1.3-4.6); Glomerular Filtration Rate 99.7 mL/min (90-130); Glucose 92 mg/dL (65-115); Osmolality Calculated 285 mOsm/kg (285-295); Sodium 138 mmol/L (136-145); Total Bilirubin 0.2 mg/dL (0.15-1.2); Total Protein 6.8 g/dL (6.6-8.7)
[2024-05-10 14:56] LABS: CA 15-3 393.3 U/mL (0-25)
[2024-06-08 14:43] LABS: Basophils # 0.1 10^3/uL (0.0-0.1); Basophils % 2.6 %; Eosinophils % 0.7 %; Hematocrit 39.8 % (36-47); Lymphocytes # 1.2 10^3/uL (0.8-4.8); Lymphocytes % 45.9 %; Mean Corpuscular HGB Conc 32.9 g/dL (30-55); Mean Corpuscular Hemoglobin 34.7 pg (27-33); Mean Corpuscular Volume 105.3 fl (85-98); Mean Platelet Volume 9.3 fL (7.4-10.4); Monocytes # 0.3 10^3/uL (0.2-0.9); Monocytes % 9.7 %; Neutrophils # 1.09 10^3/uL (1.8-7.7); Neutrophils % 40.7 %; Nucleated Red Blood Cells % 0 %; Platelet Count 271 10^3/cmm (157-399); Red Blood Count 3.78 10^6/uL (3.85-5.65); Red Cell Distribution Width 14.5 % (12.1-15.1); White Blood Count 2.68 10^3/uL (3.29-11.43)
[2024-06-08 15:08] LABS: Alanine Aminotransferase 11 U/L (0-33); Albumin Level 4.4 g/dL (3.5-5.2); Alkaline Phosphatase 72 U/L (35-105); Aspartate Amino Transferase 21 U/L (0-32); Blood Urea Nitrogen 7 mg/dL (8-23); Calcium 9.5 mg/dL (8.5-10.5); Carbon Dioxide 27 mmol/L (22-29); Chloride 104 mmol/L (98-107); Creatinine Clr Calc Pharmacy 58.4192; Globulin 2.9 g/dL (1.3-4.6); Glomerular Filtration Rate 99.7 mL/min (90-130); Glucose 101 mg/dL (65-115); Osmolality Calculated 286 mOsm/kg (285-295); Sodium 139 mmol/L (136-145); Total Bilirubin 0.2 mg/dL (0.15-1.2); Total Protein 7.3 g/dL (6.6-8.7)
[2024-06-08 15:11] LABS: Anion Gap 11.7 (5-19); Potassium 3.7 mmol/L (3.5-5.1)
[2024-06-08 15:29] LABS: CA 15-3 568.7 U/mL (0-25)
== END 2024-06-08 23:59 | disposition home or self-care (01) ==
PROVIDERS: Nurse Practitioner; Nurse Practitioner Family; PCP Family Medicine; Visit Provider Internal Medicine Medical Oncology
DX: Z53.9 Procedure and treatment not carried out, unspecified reason; C50.111 Malignant neoplasm of central portion of right female breast; C79.51 Secondary malignant neoplasm of bone; Z17.0 Estrogen receptor positive status [ER+]; Z79.899 Other long term (current) drug therapy; Z79.818 Long term (current) use of other agents affecting estrogen receptors and estrogen levels; Z87.891 Personal history of nicotine dependence
CPT/HCPCS: 36415; 80053; 85025; 86300; 99213; 99214

== ENCOUNTER 2024-07-06 13:00 | Oncology outpatient (recurring) (ONCR) | payer MEDICARE, MEDICAID, SELFPAY ==
--- NOTE | 2024-06-25 12:12 | PETR_ITS ---
PROCEDURE INFORMATION: Exam: PET/CT Skull Base to Mid-thigh Exam date and time: 06/25/2024 1:13 PM Age: 68 years old Clinical indication: Condition or disease; Follow-up oncological assessment; Condition/disease: Left breast cancer malignant neoplasm to the bone LABS AND CLINICAL REPORTS: Glucose: 98 mg/dl Treatment strategy for malignancy (PET staging): Restaging (PS) TECHNIQUE: Imaging protocol: Following at least four-hour fasting and following the injection of radiopharmaceutical, low dose CT images were obtained. Then, PET images were obtained. Attenuation corrected images were constructed using the CT scan. Fused images of PET and CT were reviewed. The standardized uptake values (SUV) reported below are maximum values within a region of interest, expressed in gm/ml. Exam includes orbital meatal line to mid-thigh. SUV normalization method: BodyWeight Radiopharmaceutical: 10.13 mCi F-18 FDG (Fluorodeoxyglucose), IV. Time of imaging post radiopharmaceutical administration: 62 minutes Injection site: left forearm COMPARISON: PT PET skull to thigh SUBS [id number] 03/02/2024 and 11/23/2022 FINDINGS: Brain: Normal physiologic uptake. Pharynx: No abnormal uptake. Larynx: No abnormal uptake. Lungs, pleura and trachea: No abnormal uptake. No lung nodules or masses. No pleural effusion. Heart: No abnormal uptake. No cardiomegaly. Mild coronary artery calcification is present. There is no pericardial effusion. Mediastinal space: No abnormal uptake. Maximum blood pool uptake is 1.7 SUV. Liver: 3 new small foci with the highest uptake of 12.2 SUV suggestive of new metastases. Gallbladder and biliary ducts: No abnormal uptake. No calcified gallstones. Pancreas: No abnormal uptake. Spleen: No abnormal uptake. No splenomegaly. Adrenal glands: No abnormal uptake. Kidneys and ureters: Normal physiologic uptake. No hydronephrosis. Stable cluster of calcifications in the midpole of the right renal sinus.. Stomach and bowel: Small focal uptake of 5 SUV in the rectum (series 301, image 230 is indeterminate. No abnormal dilatation of the colon. Intraperitoneal and retroperitoneal spaces: No abnormal uptake. No ascites. Bladder: Normal physiologic uptake. Reproductive: No abnormal uptake. Stable non FDG avid mildly hyperdense masses exophytic from the uterus suggestive of benign findings, likely fibroids, measuring 6.2 cm on the left side and 4.7 cm on the right side Vasculature: No abnormal uptake. No aortic aneurysm. Lymph nodes: Left upper jugular subcentimeter lymph node on axial image 43 measures 4.2 SUV. No fDG avid lymphadenopathy in the chest, abdomen, pelvis, and extremities. Skeleton: Previously present metastases demonstrate mixed changes with predominant progression. The largest conglomerate of lesions extensively involving the right iliac wing with progressive associated soft tissue mass in the right iliac fossa significantly increased in size and increased in uptake from 16.9 SUV to 22.2 SUV; L2 metastases increased from 13.9 SUV to 18.3 SUV and significantly increased in size. Right anterior acetabular metastases increased from 1 cm/10.9 SUV to 3.4 cm/14.9 SUV. Metastasis in the right ischial tuberosity decreased in uptake from 31 SUV to 24.2 SUV. Metastasis in the left ischial tuberosity increased from 5 SUV to 10.6 SUV. Small metastases in the right pubic bone increased from 5.4 SUV to 18.9 SUV. There are multiple new FDG avid metastases some of which represent metabolic reactivation of the lesions that were FDG avid on the older exam on 11/23/2022. This includes lesions in the right anterior C1 ( 10.6 SUV), in the right mandibular ramus ( 5.4 SUV), right humeral head ( 13.4 SUV), right coracoid process (10.7 SUV), right scapula (4.8 SUV), left side of manubrium sternum (16.6 SUV T4 ( 20.8 SUV), T8 (21.3 SUV), T9 ( 20.9 SUV), T10 (17.6 SUV), L3 ( 24.8 SUV), L5 ( 21.7 SUV), left iliac wing (11 SUV). Soft tissues: See above in skeleton . PET/PET skull to thigh SUBS [id number] IMPRESSION: In comparison with 03/02/2024 there is progressive disease. There are 3 new small liver metastases measuring up to 12.2 SUV. There are progressive bone metastases with increased size and uptake in previously present lesions and multiple new FDG avid lesions. Some bone lesions represent regrowth of metastases documented on the older exam on 11/23/2022. Overall burden of FDG avid disease is currently higher than on 11/23/2022.
[2024-07-06 13:19] LABS: Basophils # 0.1 10^3/uL (0.0-0.1); Basophils % 1.6 %; Eosinophils # 0.1 10^3/uL (0.0-0.8); Eosinophils % 1.6 %; Hematocrit 35.6 % (36-47); Lymphocytes # 1.6 10^3/uL (0.8-4.8); Lymphocytes % 49.7 %; Mean Corpuscular HGB Conc 33.1 g/dL (30-55); Mean Corpuscular Hemoglobin 34.7 pg (27-33); Mean Corpuscular Volume 104.7 fl (85-98); Mean Platelet Volume 9.1 fL (7.4-10.4); Monocytes # 0.3 10^3/uL (0.2-0.9); Neutrophils # 1.22 10^3/uL (1.8-7.7); Neutrophils % 38.8 %; Nucleated Red Blood Cells % 0 %; Platelet Count 238 10^3/cmm (157-399); Red Cell Distribution Width 13.8 % (12.1-15.1); White Blood Count 3.14 10^3/uL (3.29-11.43)
[2024-07-06 13:49] LABS: Alanine Aminotransferase 11 U/L (0-33); Albumin Level 4.2 g/dL (3.5-5.2); Alkaline Phosphatase 74 U/L (35-105); Blood Urea Nitrogen 11 mg/dL (8-23); Calcium 9.4 mg/dL (8.5-10.5); Carbon Dioxide 27 mmol/L (22-29); Chloride 102 mmol/L (98-107); Creatinine Clr Calc Pharmacy 59.2009; Globulin 2.8 g/dL (1.3-4.6); Glomerular Filtration Rate 99.7 mL/min (90-130); Glucose 93 mg/dL (65-115); Osmolality Calculated 285 mOsm/kg (285-295); Sodium 138 mmol/L (136-145); Total Bilirubin 0.3 mg/dL (0.15-1.2)
[2024-07-06 14:20] LABS: Anion Gap 13.4 (5-19); Aspartate Amino Transferase 21 U/L (0-32); CA 15-3 716.5 U/mL (0-25); Potassium 4.4 mmol/L (3.5-5.1)
[2024-07-06] MEDS: zoledronic acid (Zometa) 4 MG/100 ML PIGGYBACK 400 MG IV (14:59)
[2024-07-06 15:24] VITALS: BP 129/85; PULSE 97; RESP 17; TEMP 36.9; O2SAT 99
== END 2024-07-09 23:59 | disposition home or self-care (01) ==
PROVIDERS: PCP Family Medicine; Visit Provider Internal Medicine Medical Oncology
DX: Z53.9 Procedure and treatment not carried out, unspecified reason; C50.111 Malignant neoplasm of central portion of right female breast; C79.51 Secondary malignant neoplasm of bone; Z17.0 Estrogen receptor positive status [ER+]; K76.9 Liver disease, unspecified; Z79.899 Other long term (current) drug therapy; Z79.818 Long term (current) use of other agents affecting estrogen receptors and estrogen levels; Z87.891 Personal history of nicotine dependence
CPT/HCPCS: 36415; 78815; 80053; 85025; 86300; 99214; A9552; J3489

== ENCOUNTER 2024-07-24 14:12 | Emergency (ER) | payer MEDICARE, MEDICAID, SELFPAY ==
--- NOTE | 2024-07-24 14:13 | XRR_ITS ---
PROCEDURE INFORMATION: Exam: XR Right Hip Exam date and time: 07/24/2024 3:57 PM Age: 68 years old Clinical indication: Hip pain; Right hip; Bone mets abn pet scan TECHNIQUE: Imaging protocol: Radiologic exam of the right hip. Views: 1 view hip with pelvis when performed. COMPARISON: CT kidney stone [id number] 10/14/2022 7:44 AM FINDINGS: Bones/joints: Expansile lytic and sclerotic appearance of the right hemipelvis, compatible with provided history of bony metastasis. There is no evidence of acute pathologic fracture. Soft tissues: Unremarkable. XR/XR hip RT 2-3V wo/w pel* [id number] IMPRESSION: Expansile lytic and sclerotic appearance of the right hemipelvis, compatible with provided history of bony metastasis. There is no evidence of acute pathologic fracture.
[2024-07-24 14:19] VITALS: BP 107/64; PULSE 72; RESP 16; TEMP 37.2; O2SAT 97; BMI 20.2
[2024-07-24 16:16] VITALS: PULSE 70; RESP 16; O2SAT 98
[2024-07-24 16:41] VITALS: PULSE 71; O2SAT 99
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
== END 2024-07-24 16:46 | disposition home or self-care (01) ==
PROVIDERS: Emergency Provider Emergency Medicine; PCP Family Medicine
DX: C79.51 Secondary malignant neoplasm of bone (principal); Z85.3 Personal history of malignant neoplasm of breast; Z87.891 Personal history of nicotine dependence
CPT/HCPCS: 73502; 99283

== ENCOUNTER 2024-07-26 13:51 | Oncology outpatient (recurring) (ONCR) | payer MEDICARE, MEDICAID, SELFPAY ==
[2024-07-26 14:28] LABS: Basophils # 0.1 10^3/uL (0.0-0.1); Basophils % 1.2 %; Eosinophils # 0.1 10^3/uL (0.0-0.8); Eosinophils % 0.7 %; Hematocrit 36.1 % (36-47); Lymphocytes # 1.9 10^3/uL (0.8-4.8); Mean Corpuscular Hemoglobin 34.3 pg (27-33); Mean Platelet Volume 9.5 fL (7.4-10.4); Monocytes # 0.6 10^3/uL (0.2-0.9); Monocytes % 9.4 %; Neutrophils # 4.03 10^3/uL (1.8-7.7); Neutrophils % 60.4 %; Nucleated Red Blood Cells % 0 %; Platelet Count 381 10^3/cmm (157-399); Red Blood Count 3.47 10^6/uL (3.85-5.65); Red Cell Distribution Width 12.9 % (12.1-15.1); White Blood Count 6.68 10^3/uL (3.29-11.43)
[2024-07-26 14:55] LABS: Alanine Aminotransferase 9 U/L (0-33); Albumin Level 4.1 g/dL (3.5-5.2); Alkaline Phosphatase 92 U/L (35-105); Anion Gap 14.2 (5-19); Aspartate Amino Transferase 22 U/L (0-32); Blood Urea Nitrogen 11 mg/dL (8-23); Calcium 9.4 mg/dL (8.5-10.5); Carbon Dioxide 27 mmol/L (22-29); Chloride 104 mmol/L (98-107); Cholesterol 160 mg/dL (0-200); Globulin 2.8 g/dL (1.3-4.6); Glomerular Filtration Rate 99.7 mL/min (90-130); Glucose 99 mg/dL (65-115); HDL Cholesterol 47 mg/dL (60-100); LDL Cholesterol Calculated 99 mg/dL (50-129); LDL HDL Ratio 2.11 RATIO (0.00-3.22); Osmolality Calculated 291 mOsm/kg (285-295); Potassium 4.2 mmol/L (3.5-5.1); Sodium 141 mmol/L (136-145); Total Bilirubin 0.5 mg/dL (0.15-1.2); Total Protein 6.9 g/dL (6.6-8.7); Triglycerides 71 mg/dL (0-150)
[2024-07-26 15:19] LABS: CA 15-3 856.8 U/mL (0-25)
== END 2024-08-06 23:59 | disposition home or self-care (01) ==
PROVIDERS: PCP Family Medicine; Visit Provider Internal Medicine Medical Oncology
DX: C50.111 Malignant neoplasm of central portion of right female breast (principal); C79.51 Secondary malignant neoplasm of bone; Z17.0 Estrogen receptor positive status [ER+]; Z79.899 Other long term (current) drug therapy
CPT/HCPCS: 36415; 80053; 80061; 85025; 86300

== ENCOUNTER → 2024-07-27 10:00 | Outpatient (BNVA) | payer MEDICARE, MEDICAID, SELFPAY | PROVIDERS: PCP Family Medicine; Visit Provider Nurse Practitioner | DX: C50.111 Malignant neoplasm of central portion of right female breast (principal); Z17.0 Estrogen receptor positive status [ER+]; C79.51 Secondary malignant neoplasm of bone; Z87.891 Personal history of nicotine dependence; K76.89 Other specified diseases of liver; Z79.899 Other long term (current) drug therapy | CPT/HCPCS: 99214 ==

== ENCOUNTER 2024-08-11 13:01 | Oncology outpatient (recurring) (ONCR) | payer MEDICARE, MEDICAID, SELFPAY ==
[2024-08-11 13:51] LABS: Basophils % 0.9 %; Eosinophils # 0.1 10^3/uL (0.0-0.8); Eosinophils % 1.7 %; Hematocrit 35.9 % (36-47); Lymphocytes # 1.7 10^3/uL (0.8-4.8); Lymphocytes % 39.6 %; Mean Corpuscular HGB Conc 32.3 g/dL (30-55); Mean Corpuscular Hemoglobin 32.7 pg (27-33); Mean Corpuscular Volume 101.1 fl (85-98); Mean Platelet Volume 9.6 fL (7.4-10.4); Monocytes # 0.4 10^3/uL (0.2-0.9); Monocytes % 9.7 %; Neutrophils # 2.01 10^3/uL (1.8-7.7); Neutrophils % 47.6 %; Nucleated Red Blood Cells % 0 %; Platelet Count 359 10^3/cmm (157-399); Red Blood Count 3.55 10^6/uL (3.85-5.65); White Blood Count 4.22 10^3/uL (3.29-11.43)
[2024-08-11 15:08] LABS: 25 Hydroxy Vitamin D 15 ng/mL (30-100); Alanine Aminotransferase 12 U/L (0-33); Albumin Level 4.2 g/dL (3.5-5.2); Alkaline Phosphatase 100 U/L (35-105); Anion Gap 12.4 (5-19); Aspartate Amino Transferase 24 U/L (0-32); Blood Urea Nitrogen 12 mg/dL (8-23); Calcium 8.9 mg/dL (8.5-10.5); Carbon Dioxide 27 mmol/L (22-29); Chloride 102 mmol/L (98-107); Globulin 2.6 g/dL (1.3-4.6); Glomerular Filtration Rate 99.7 mL/min (90-130); Glucose 79 mg/dL (65-115); Osmolality Calculated 285 mOsm/kg (285-295); Potassium 3.4 mmol/L (3.5-5.1); Sodium 138 mmol/L (136-145); Total Bilirubin 0.2 mg/dL (0.15-1.2); Total Protein 6.8 g/dL (6.6-8.7)
[2024-08-11] MEDS: zoledronic acid (Zometa) 4 MG/100 ML PIGGYBACK 400 MG IV (15:15)
[2024-08-11 15:30] LABS: CA 15-3 941.2 U/mL (0-25)
[2024-08-11 15:39] VITALS: BP 106/59; PULSE 55; O2SAT 95
== END 2024-09-06 23:59 | disposition home or self-care (01) ==
PROVIDERS: Nurse Practitioner Family; PCP Family Medicine; Visit Provider Internal Medicine
DX: C50.111 Malignant neoplasm of central portion of right female breast (principal); C79.51 Secondary malignant neoplasm of bone; Z17.0 Estrogen receptor positive status [ER+]; L81.4 Other melanin hyperpigmentation; Z79.899 Other long term (current) drug therapy; Z79.818 Long term (current) use of other agents affecting estrogen receptors and estrogen levels; Z87.891 Personal history of nicotine dependence
CPT/HCPCS: 80053; 82306; 85025; 86300; 96365; 99214; J3489

== ENCOUNTER 2024-09-21 14:00 | Oncology outpatient (recurring) (ONCR) | payer MEDICARE, MEDICAID, SELFPAY ==
[2024-09-08 13:17] LABS: Basophils # 0.1 10^3/uL (0.0-0.1); Basophils % 0.9 %; Eosinophils # 0.1 10^3/uL (0.0-0.8); Eosinophils % 1.1 %; Hematocrit 37.8 % (36-47); Lymphocytes # 1.3 10^3/uL (0.8-4.8); Lymphocytes % 24.9 %; Mean Corpuscular HGB Conc 31.7 g/dL (30-55); Mean Corpuscular Hemoglobin 31.3 pg (27-33); Mean Corpuscular Volume 98.4 fl (85-98); Mean Platelet Volume 9.3 fL (7.4-10.4); Monocytes # 0.5 10^3/uL (0.2-0.9); Neutrophils # 3.42 10^3/uL (1.8-7.7); Neutrophils % 63.9 %; Nucleated Red Blood Cells % 0 %; Platelet Count 353 10^3/cmm (157-399); Red Blood Count 3.84 10^6/uL (3.85-5.65); Red Cell Distribution Width 13.4 % (12.1-15.1); White Blood Count 5.35 10^3/uL (3.29-11.43)
[2024-09-08 13:52] LABS: Alanine Aminotransferase 11 U/L (0-33); Albumin Level 4.1 g/dL (3.5-5.2); Alkaline Phosphatase 78 U/L (35-105); Anion Gap 13.1 (5-19); Aspartate Amino Transferase 19 U/L (0-32); Blood Urea Nitrogen 11 mg/dL (8-23); Calcium 8.8 mg/dL (8.5-10.5); Carbon Dioxide 25 mmol/L (22-29); Chloride 106 mmol/L (98-107); Creatinine Clr Calc Pharmacy 57.8179; Globulin 2.4 g/dL (1.3-4.6); Glomerular Filtration Rate 158.7 mL/min (90-130); Glucose 86 mg/dL (65-115); Osmolality Calculated 289 mOsm/kg (285-295); Potassium 4.1 mmol/L (3.5-5.1); Sodium 140 mmol/L (136-145); Total Bilirubin 0.3 mg/dL (0.15-1.2); Total Protein 6.5 g/dL (6.6-8.7)
--- NOTE | 2024-09-17 15:00 | PETR_ITS ---
PROCEDURE INFORMATION: Exam: PET/CT Skull Base to Mid-thigh Exam date and time: 09/17/2024 3:38 PM Age: 69 years old Clinical indication: Condition or disease; Primary cancer: Breast cancer right; Additional info: Restaging LABS AND CLINICAL REPORTS: Glucose: 81 mg/dl Treatment strategy for malignancy (PET staging): Restaging (PS) TECHNIQUE: Imaging protocol: Following at least four-hour fasting and following the injection of radiopharmaceutical, low dose CT images were obtained. Then, PET images were obtained. Attenuation corrected images were constructed using the CT scan. Fused images of PET and CT were reviewed. The standardized uptake values (SUV) reported below are maximum values within a region of interest, expressed in gm/ml. Exam includes orbital meatal line to mid-thigh. SUV normalization method: BodyWeight Radiopharmaceutical: 11.2 mCi F-18 FDG (Fluorodeoxyglucose), IV. Time of imaging post radiopharmaceutical administration: 49 minutes Injection site: right forearm COMPARISON: PT PET skull to thigh SUBS [id number] 06/25/2024 1:13 PM FINDINGS: Brain: Visualized brain has normal physiologic uptake. Pharynx: No abnormal uptake. Larynx: No abnormal uptake. Lungs, pleura and trachea: No abnormal uptake. Heart: Normal physiologic uptake. Coronary arteries: Mild coronary artery calcification. Mediastinal space: No abnormal uptake. Liver: Hepatic metastatic lesions appear to be increased in size but decreased in FDG uptake with index lesions on axial image 121 showing SUV max 7.5 (previously 12.2) and 116 showing SUV max 8.7 (previously 12.9). No definite new lesions. Gallbladder and biliary ducts: No abnormal uptake. Pancreas: No abnormal uptake. Spleen: No abnormal uptake. Adrenal glands: No abnormal uptake. Kidneys and ureters: Normal physiologic uptake. Stable nonobstructive right nephrolithiasis. Stomach and bowel: No abnormal uptake. Reproductive: Stable photopenic presumed uterine fibroids. Vasculature: No abnormal uptake. Moderate systemic atherosclerotic calcification without aortic aneurysm. Lymph nodes: FDG avid right axillary lymphadenopathy (misregistration results in posterior location of FDG uptake on combined images) with index node measuring 7 mm in the short axis on axial image 191 with SUV max 5.5, previously 5 mm in the short axis with SUV max 15.7. Focal FDG uptake at anterior aortocaval region without discretely measurable node shows SUV max 7.1 on axial image 112. Multiple new and enlarged FDG avid right pelvic lymph nodes, index newly abnormal posterior external iliac node measures 1.4 cm in the short axis on axial image 72 and shows SUV max 13.0, and increased size anterior external iliac node measures 1.3 cm in the short axis on axial image 73 with SUV max 10.9, previously 0.9 cm with SUV max 19.5. Skeleton: Mixed response with multiple sites of decreased uptake such as at the right glenoid which shows SUV max 4.8 (previously 14.5), posterior T4 vertebral body lesion showing SUV max 6.2 (previously 20.8), and left upper sternum showing SUV max 8.6 (misregistration artifact leads to posterior displacement of FDG uptake on combined images) previously 16.6. Resolved FDG uptake at the T9 vertebral body. Developed FDG avid lesions at the lower sternum showing SUV max 5.3 on axial image 169 (misregistration artifact leads to posterior displacement of FDG uptake on combined images) as well as at the left humeral head with SUV max 3.6 on axial image 220, and presumed right rib showing SUV max 6.0 on axial image 155 (presumed misregistration artifact leads to focal FDG uptake at the lateral right 7th intercostal space). Mild pathologic compression fracture at the L2 vertebral body with more heterogeneous decreased FDG uptake involving the body with SUV max 13.4 (previously 16.8 but extension of FDG uptake now to the [id number]-left posterior elements. Increased area of FDG uptake at the L3 vertebral body with decreased metabolic activity showing SUV max 15.9, previously 24.8. Grossly stable CT appearance of abnormal right pelvic bone with decreased FDG uptake with index uptake at the anterior acetabulum showing SUV max 7.1 on axial image 60, previously 14.9. Developed focus of FDG uptake at the left posterior acetabulum showing SUV max 5.7 on axial image 57. Soft tissues: No abnormal uptake in the visualized head, neck, chest, abdomen, pelvis, and extremities. Couple upper back photopenic fluid density circumscribed subcutaneous cysts with broad dermal interface, index left paramedian measuring up to 2.8 cm on axial image 209, compatible with epidermal inclusion cysts. METRICS: Mediastinal blood pool: SUV mean 1.6 Liver uptake: SUV mean 2.2 PET/PET skull to thigh SUBS [id number] IMPRESSION: 1. Compared to 06/25/2024, mixed treatment response. 2. Hepatic metastases show larger area of metabolic activity with decreased FDG uptake. 3. Increased size but decreased FDG uptake at right axillary lymph node. 4. Increased right pelvic lymphadenopathy and suspected developed retroperitoneal lymphadenopathy. 5. Mixed osseous metastases detailed above with some improved, some resolved, some worsened, and some new.
[2024-09-21 13:51] LABS: Basophils % 0.6 %; Eosinophils # 0.1 10^3/uL (0.0-0.8); Eosinophils % 1.3 %; Hematocrit 40.6 % (36-47); Lymphocytes # 1.4 10^3/uL (0.8-4.8); Lymphocytes % 22.8 %; Mean Corpuscular Hemoglobin 31.4 pg (27-33); Mean Corpuscular Volume 98.1 fl (85-98); Mean Platelet Volume 9.5 fL (7.4-10.4); Monocytes # 0.5 10^3/uL (0.2-0.9); Monocytes % 8.1 %; Nucleated Red Blood Cells % 0 %; Platelet Count 301 10^3/cmm (157-399); Red Blood Count 4.14 10^6/uL (3.85-5.65); Red Cell Distribution Width 13.5 % (12.1-15.1); White Blood Count 6.27 10^3/uL (3.29-11.43)
[2024-09-21 14:29] LABS: 25 Hydroxy Vitamin D 12 ng/mL (30-100); Alanine Aminotransferase 14 U/L (0-33); Albumin Level 4.4 g/dL (3.5-5.2); Alkaline Phosphatase 83 U/L (35-105); Aspartate Amino Transferase 22 U/L (0-32); Blood Urea Nitrogen 11 mg/dL (8-23); Calcium 9.3 mg/dL (8.5-10.5); Carbon Dioxide 26 mmol/L (22-29); Chloride 103 mmol/L (98-107); Globulin 2.6 g/dL (1.3-4.6); Glomerular Filtration Rate 122.7 mL/min (90-130); Glucose 88 mg/dL (65-115); Osmolality Calculated 289 mOsm/kg (285-295); Sodium 140 mmol/L (136-145); Total Bilirubin 0.3 mg/dL (0.15-1.2)
[2024-09-21] MEDS: zoledronic acid (Zometa) 4 MG/100 ML PIGGYBACK 400 MG IV (15:52)
== END 2024-10-06 23:59 | disposition home or self-care (01) ==
PROVIDERS: PCP Family Medicine; Visit Provider Nurse Practitioner Family
DX: Z53.9 Procedure and treatment not carried out, unspecified reason (principal); C50.111 Malignant neoplasm of central portion of right female breast; Z17.0 Estrogen receptor positive status [ER+]; S32.020A Wedge compression fracture of second lumbar vertebra, initial encounter for closed fracture; X58.XXXA Exposure to other specified factors, initial encounter; Z79.899 Other long term (current) drug therapy; Z79.891 Long term (current) use of opiate analgesic
CPT/HCPCS: 36415; 78815; 80053; 82306; 85025; 86300; 96365; 99214; A9552; J3489

== ENCOUNTER 2024-10-19 13:04 | Oncology outpatient (recurring) (ONCR) | payer OTHER, MEDICAID, SELFPAY ==
[2024-10-19 13:29] LABS: Basophils % 0.6 %; Eosinophils # 0.1 10^3/uL (0.0-0.8); Eosinophils % 0.8 %; Hematocrit 40.5 % (36-47); Lymphocytes # 1.8 10^3/uL (0.8-4.8); Lymphocytes % 27.7 %; Mean Corpuscular HGB Conc 31.6 g/dL (30-55); Mean Corpuscular Hemoglobin 30.3 pg (27-33); Monocytes # 0.6 10^3/uL (0.2-0.9); Monocytes % 9.1 %; Neutrophils # 4.01 10^3/uL (1.8-7.7); Neutrophils % 61.6 %; Nucleated Red Blood Cells % 0 %; Platelet Count 339 10^3/cmm (157-399); Red Blood Count 4.22 10^6/uL (3.85-5.65)
[2024-10-19 14:10] LABS: Alanine Aminotransferase 13 U/L (0-33); Albumin Level 4.1 g/dL (3.5-5.2); Alkaline Phosphatase 86 U/L (35-105); Aspartate Amino Transferase 21 U/L (0-32); Blood Urea Nitrogen 16 mg/dL (8-23); Calcium 8.8 mg/dL (8.5-10.5); Carbon Dioxide 24 mmol/L (22-29); Chloride 103 mmol/L (98-107); Creatinine Clr Calc Pharmacy 57.0405; Globulin 2.8 g/dL (1.3-4.6); Glomerular Filtration Rate 122.7 mL/min (90-130); Glucose 90 mg/dL (65-115); Osmolality Calculated 287 mOsm/kg (285-295); Sodium 138 mmol/L (136-145); Total Bilirubin 0.3 mg/dL (0.15-1.2); Total Protein 6.9 g/dL (6.6-8.7)
[2024-10-19 14:48] LABS: CA 15-3 961.9 U/mL (0-25)
[2024-10-19] MEDS: zoledronic acid (Zometa) 4 MG/100 ML PIGGYBACK 400 MG IV (15:39)
[2024-10-19 16:02] VITALS: BP 117/76; PULSE 64; RESP 17; TEMP 37.1; O2SAT 95
== END 2024-11-06 23:59 | disposition home or self-care (01) ==
PROVIDERS: PCP Family Medicine; Visit Provider Nurse Practitioner Family
DX: C50.111 Malignant neoplasm of central portion of right female breast (principal); Z17.0 Estrogen receptor positive status [ER+]; C79.51 Secondary malignant neoplasm of bone; G89.3 Neoplasm related pain (acute) (chronic); Z87.891 Personal history of nicotine dependence; Z79.899 Other long term (current) drug therapy
CPT/HCPCS: 80053; 85025; 86300; 96365; 99213; J3489

== ENCOUNTER 2024-11-30 13:15 | Oncology outpatient (recurring) (ONCR) | payer OTHER, MEDICAID, SELFPAY ==
[2024-11-17 13:53] LABS: Basophils # 0.1 10^3/uL (0.0-0.1); Basophils % 0.8 %; Eosinophils # 0.1 10^3/uL (0.0-0.8); Eosinophils % 1.7 %; Hematocrit 37.6 % (36-47); Lymphocytes # 1.8 10^3/uL (0.8-4.8); Lymphocytes % 30.1 %; Mean Corpuscular HGB Conc 32.4 g/dL (30-55); Mean Corpuscular Volume 95.4 fl (85-98); Mean Platelet Volume 10.2 fL (7.4-10.4); Monocytes # 0.6 10^3/uL (0.2-0.9); Monocytes % 9.8 %; Neutrophils # 3.39 10^3/uL (1.8-7.7); Neutrophils % 57.4 %; Nucleated Red Blood Cells % 0 %; Platelet Count 307 10^3/cmm (157-399); Red Blood Count 3.94 10^6/uL (3.85-5.65); Red Cell Distribution Width 14.1 % (12.1-15.1); White Blood Count 5.91 10^3/uL (3.29-11.43)
[2024-11-17 14:22] LABS: Alanine Aminotransferase 16 U/L (0-33); Albumin Level 3.8 g/dL (3.5-5.2); Alkaline Phosphatase 70 U/L (35-105); Blood Urea Nitrogen 16 mg/dL (8-23); Calcium 8.7 mg/dL (8.5-10.5); Carbon Dioxide 24 mmol/L (22-29); Chloride 106 mmol/L (98-107); Globulin 2.7 g/dL (1.3-4.6); Glomerular Filtration Rate 122.7 mL/min (90-130); Glucose 87 mg/dL (65-115); Osmolality Calculated 289 mOsm/kg (285-295); Sodium 139 mmol/L (136-145); Total Bilirubin 0.3 mg/dL (0.15-1.2); Total Protein 6.5 g/dL (6.6-8.7)
[2024-11-17 14:29] LABS: Anion Gap 13.2 (5-19); Potassium 4.2 mmol/L (3.5-5.1)
[2024-11-17 14:30] LABS: Aspartate Amino Transferase 26 U/L (0-32)
[2024-11-17 15:17] LABS: CA 15-3 753.9 U/mL (0-25)
[2024-11-17] MEDS: zoledronic acid (Zometa) 4 MG/100 ML PIGGYBACK 400 MG IV (15:19)
[2024-11-17 15:37] VITALS: BP 113/67; PULSE 56; RESP 17; TEMP 36.3; O2SAT 93
--- NOTE | 2024-11-30 13:15 | US_ITS ---
WS: [id number] US pelvic complete* [id number] HISTORY: pelvic fullness with standing COMPARISON: None available. Patient does not wish to proceed with transvaginal imaging. Uterus: 8.6 cm x 6.7 cm x 5.5 cm. Very limited evaluation of the pelvic structures. Urinary bladder is not distended. Uterus is retroflexed. Endometrium: Not identified. Neither ovary identified. No adnexal masses. US/US pelvic complete* [id number] IMPRESSION: Extremely limited evaluation of the pelvic structures. Poorly visualized uterus . Neither ovary identified. No adenopathy identified.
== END 2024-12-06 23:59 | disposition home or self-care (01) ==
LOC: RAD 12-01 → ONCMED 12-01 09:32
PROVIDERS: Internal Medicine; PCP Family Medicine; Visit Provider Nurse Practitioner Family
DX: C50.111 Malignant neoplasm of central portion of right female breast; Z17.0 Estrogen receptor positive status [ER+]; R19.00 Intra-abdominal and pelvic swelling, mass and lump, unspecified site; Z53.9 Procedure and treatment not carried out, unspecified reason
CPT/HCPCS: 76856; 80053; 85025; 86300; 96365; 99214; J3489

== ENCOUNTER 2024-12-31 06:00 | Oncology outpatient (recurring) (ONCR) | payer OTHER, MEDICAID, SELFPAY ==
--- NOTE | 2024-12-17 13:30 | PETR_ITS ---
PROCEDURE INFORMATION: Exam: PET/CT Skull Base to Mid-thigh Exam date and time: 12/17/2024 3:04 PM Age: 69 years old Clinical indication: Condition or disease; Condition/disease: Breast cancer; Additional info: [facility] LABS AND CLINICAL REPORTS: Glucose: 104 mg/dl Treatment strategy for malignancy (PET staging): Restaging (PS) TECHNIQUE: Imaging protocol: Following at least four-hour fasting and following the injection of radiopharmaceutical, low dose CT images were obtained. Then, PET images were obtained. Attenuation corrected images were constructed using the CT scan. Fused images of PET and CT were reviewed. The standardized uptake values (SUV) reported below are maximum values within a region of interest, expressed in gm/ml. Exam includes orbital meatal line to mid-thigh. SUV normalization method: BodyWeight Radiopharmaceutical: 10.58 mCi F-18 FDG (Fluorodeoxyglucose), IV. Time of imaging post radiopharmaceutical administration: 51 minutes Injection site: left forearm COMPARISON: PT PET skull to thigh SUBS [id number] 09/17/2024 3:38 PM FINDINGS: Brain: Visualized brain has normal physiologic uptake. Pharynx: No abnormal uptake. Larynx: No abnormal uptake. Lungs, pleura and trachea: No abnormal uptake. Heart: Normal physiologic uptake. Coronary arteries: Mild coronary artery calcification. Mediastinal space: No abnormal uptake. Liver: Decreased uptake at subtle lesions with index at the posterior right liver showing SUV max 3.1 on axial image 195 (previously 8.7) and more anterior lesion showing SUV max 2.9 (previously 7.5) with note of misregistration artifact. Additional lesions on comparison exam have resolved. Gallbladder and biliary ducts: No abnormal uptake. Pancreas: No abnormal uptake. Spleen: No abnormal uptake. Adrenal glands: No abnormal uptake. Kidneys and ureters: Normal physiologic uptake. Stable nonobstructive right nephrolithiasis. Stomach and bowel: No abnormal uptake. Reproductive: Stable photopenic presumed uterine fibroids. Vasculature: No abnormal uptake. Moderate systemic atherosclerotic calcification without aortic aneurysm. Lymph nodes: Mixed response appears overall worsened. Increased right axillary lymphadenopathy with index node measuring 9 mm in the short axis on axial image 122 showing SUV max 7.8, previously 7 mm in the short axis with SUV max 5.5. Couple additional developed mildly enlarged FDG avid right axillary lymph nodes, index measuring 8 mm in the short axis on axial image 119 showing SUV max 5.3. Increased FDG avid retroperitoneal lymphadenopathy with index aortocaval node measuring 1.2 cm in the short axis on axial image 174 with SUV max 11.7, previously 4.6 without discretely measurable node. Increased size right common iliac node measuring 1 cm on axial image 209 shows SUV max 9.1, previously 8 mm with SUV max 14.0. Distal right external iliac node measures 1.2 cm in the short axis on axial image 230 with SUV max 6.9, previously 1.4 cm with SUV max 10.9. Skeleton: Mixed response. Developed FDG avid focus at the right posterior C1 vertebra shows SUV max 8.6 on axial image 56. Developed subacute appearing pathologic fracture through right glenoid lesion which shows SUV max 5.7, previously 4.8, with some healing callus formation. Increased FDG uptake at right humeral head showing SUV max 11.7, previously 7.3. Decreased left manubrial lesion shows SUV max 5.9 on axial image 106, previously 8.6. Increased uptake at T8 vertebral body shows SUVmax 11.6, previously 5.7. Significant multilevel lumbar spine vertebral lesions with stable compression deformity of the L2 vertebral body and developed L3 vertebral body osteolysis. Developed right posterior L4 vertebral body lysis with SUV max 10.3, previously 14.6. Decreased uptake at more sclerotic appearing left L5 vertebral body lesion showing SUV max 6.0, previously 12.3. Increased left sacral uptake showing SUV max 11.3 on axial image 208, previously 3.2. Decreased more inferior right sacral uptake with increased sclerosis (axial image 217) shows SUV max 4.5, previously 6.2. Overall decreased right iliac uptake. Decreased right femoral neck uptake showing SUV max 6.8, previously 11.0. Soft tissues: No abnormal uptake in the visualized head, neck, chest, abdomen, pelvis, and extremities. Couple stable upper back photopenic fluid density circumscribed subcutaneous cysts compatible with epidermal inclusion cysts. METRICS: Mediastinal blood pool: SUV mean 1.6 Liver uptake: SUV mean 2.1 PET/PET skull to thigh SUBS [id number] IMPRESSION: 1. Compared to 09/17/2024, mixed treatment response. 2. Much improved hepatic metastases with only couple small residual mildly FDG avid lesions. 3. Mixed lymphadenopathy with overall worsening. 4. Mixed osseous metastatic disease with index lesions described above. 5. Intervally developed subacute pathologic fracture through right glenoid lesion.
[2024-12-22 13:50] LABS: Hematocrit 38.6 % (36-47); Hemoglobin 12.40 g/dL (11.27-16.99); Mean Corpuscular HGB Conc 32.1 g/dL (30-55); Mean Corpuscular Hemoglobin 30.2 pg (27-33); Mean Corpuscular Volume 94.1 fl (85-98); Nucleated Red Blood Cells % 0 %; Platelet Count 340 10^3/cmm (157-399); Red Blood Count 4.10 10^6/uL (3.85-5.65); White Blood Count 5.56 10^3/uL (3.29-11.43)
[2024-12-22 14:31] LABS: Alanine Aminotransferase 15 U/L (0-33); Albumin Level 3.9 g/dL (3.5-5.2); Alkaline Phosphatase 101 U/L (35-105); Anion Gap 16.1 (5-19); Aspartate Amino Transferase 26 U/L (0-32); Blood Urea Nitrogen 18 mg/dL (8-23); Calcium 8.8 mg/dL (8.5-10.5); Carbon Dioxide 23 mmol/L (22-29); Chloride 103 mmol/L (98-107); Creatinine Clr Calc Pharmacy 55.8841; Globulin 2.9 g/dL (1.3-4.6); Glucose 84 mg/dL (65-115); Osmolality Calculated 287 mOsm/kg (285-295); Potassium 4.1 mmol/L (3.5-5.1); Sodium 138 mmol/L (136-145); Total Protein 6.8 g/dL (6.6-8.7)
[2024-12-22 14:52] LABS: CA 15-3 861.2 U/mL (0-25)
[2024-12-22] MEDS: zoledronic acid (Zometa) 4 MG/100 ML PIGGYBACK 400 MG IV (15:25)
[2024-12-22 16:00] VITALS: BP 130/73; PULSE 64; RESP 16; TEMP 37; O2SAT 95
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
== END 2025-01-06 23:59 | disposition home or self-care (01) ==
PROVIDERS: Nurse Practitioner Family; PCP Family Medicine; Visit Provider Radiology Radiation Oncology
DX: Z51.0 Encounter for antineoplastic radiation therapy (principal); C79.51 Secondary malignant neoplasm of bone; C50.111 Malignant neoplasm of central portion of right female breast; Z17.0 Estrogen receptor positive status [ER+]; C78.7 Secondary malignant neoplasm of liver and intrahepatic bile duct; C79.89 Secondary malignant neoplasm of other specified sites
CPT/HCPCS: 77290; 77295; 77300; 77334; 78815; 80053; 82306; 85025; 86300; 96365; 99205; 99214; A9552; J3489

== ENCOUNTER 2025-01-19 13:00 | Oncology outpatient (recurring) (ONCR) | payer OTHER, MEDICAID, SELFPAY ==
[2025-01-19 13:48] LABS: Hematocrit 39.1 % (36-47); Hemoglobin 12.70 g/dL (11.27-16.99); Mean Corpuscular HGB Conc 32.5 g/dL (30-55); Mean Corpuscular Hemoglobin 30.1 pg (27-33); Mean Corpuscular Volume 92.7 fl (85-98); Nucleated Red Blood Cells % 0 %; Platelet Count 374 10^3/cmm (157-399); Red Blood Count 4.22 10^6/uL (3.85-5.65); White Blood Count 6.57 10^3/uL (3.29-11.43)
[2025-01-19 14:19] LABS: Alanine Aminotransferase 46 U/L (0-33); Albumin Level 4.2 g/dL (3.5-5.2); Alkaline Phosphatase 93 U/L (35-105); Aspartate Amino Transferase 64 U/L (0-32); Blood Urea Nitrogen 15 mg/dL (8-23); Calcium 9.5 mg/dL (8.5-10.5); Carbon Dioxide 24 mmol/L (22-29); Chloride 103 mmol/L (98-107); Creatinine Clr Calc Pharmacy 54.5407; Globulin 3.0 g/dL (1.3-4.6); Glucose 95 mg/dL (65-115); Osmolality Calculated 285 mOsm/kg (285-295); Sodium 137 mmol/L (136-145); Total Protein 7.2 g/dL (6.6-8.7)
[2025-01-19 14:20] LABS: Anion Gap 14.5 (5-19); Potassium 4.5 mmol/L (3.5-5.1)
[2025-01-19 14:41] LABS: CA 15-3 1173.0 U/mL (0-25)
[2025-01-19] MEDS: zoledronic acid (Zometa) 4 MG/100 ML PIGGYBACK 400 MG IV (14:52)
== END 2025-02-06 23:59 | disposition home or self-care (01) ==
PROVIDERS: Nurse Practitioner Family; PCP Family Medicine; Visit Provider Radiology Radiation Oncology
DX: C50.111 Malignant neoplasm of central portion of right female breast (principal); Z17.0 Estrogen receptor positive status [ER+]; C79.51 Secondary malignant neoplasm of bone; G89.3 Neoplasm related pain (acute) (chronic); Z87.891 Personal history of nicotine dependence; Z79.899 Other long term (current) drug therapy
CPT/HCPCS: 80053; 85025; 86300; 96365; 99213; J3489

== ENCOUNTER 2025-02-15 09:56 | Emergency (ER) | payer OTHER, MEDICAID, SELFPAY ==
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
[2025-02-15 09:56] VITALS: BP 166/84; PULSE 86; RESP 14; TEMP 36.8; O2SAT 95; BMI 16.6
--- OUTSIDE RECORDS SUMMARY | 2025-02-15 10:04 | XMS_ITS | Clinical Summary ---
Author Organization [facility] Address [address] 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 Gender Identity Not on file Sexual Orientation Not on file Last Filed Vital Signs Vital Sign Reading Time Taken Comments Blood Pressure 144/82 11/29/2019 2:39 PM CDT Pulse 76 11/29/2019 2:39 PM CDT Temperature - - Respiratory Rate - - Oxygen Saturation - - Inhaled Oxygen Concentration - - Weight 65.8 kg (145 lb) 11/29/2019 2:39 PM CDT Height 162.6 cm (5' 4 ) 11/29/2019 2:39 PM CDT Body Mass Index 24.89 11/29/2019 2:39 PM CDT Plan of Treatment Health Maintenance Due Date Last Done Comments DTAP/TDAP/TD VACCINES (1 - Tdap) 08/21/1975 BREAST CANCER SCREENING 1996 COLORECTAL SCREENING 2001 Colorectal Cancer Screening 2001 FIT-DNA Q 3 years 2001 FIT/FOBT Q 1 year 2001 Flex Sig/CT Colonography Q 5 years 2001 PNEUMOCOCCAL VACCINE 50+ YEARS (1 of 1 - PCV) 08/21/19 07 ZOSTER VACCINE (1 of 2) 2006 OSTEOPOROSIS SCREENING 2021 INFLUENZA VACCINE (#1) 2025 RSV VACCINE (60+ or ) (1 - 1-dose 75+ series) 08/21/2031
--- OUTSIDE RECORDS SUMMARY | 2025-02-15 10:04 | XMS_ITS | Clinical Summary ---
Author Organization [facility] Address [address] [place] [address] Care Team Providers Care Outreach Assistant Name Role Phone Unavailable Primary Care Provider Unavailabl e Medications No known medications Active Problems No known active problems Social History Tobacco Use Types Packs/Day Years Used Date Smoking Tobacco: Former Smokeless Tobacco: Never Comments Unknown Sex and Gender Information Value Date Recorded Sex Assigned at Not on file Legal Sex Female 12:03 PM CDT Gender Identity Not on file Sexual Orientation [...]
[2025-02-15 10:16] LABS: Hematocrit 37.0 % (36-47); Hemoglobin 11.60 g/dL (11.27-16.99); Mean Corpuscular HGB Conc 31.4 g/dL (30-55); Mean Corpuscular Hemoglobin 29.7 pg (27-33); Mean Corpuscular Volume 94.9 fl (85-98); Nucleated Red Blood Cells % 0 %; Platelet Count 357 10^3/cmm (157-399); Red Blood Count 3.90 10^6/uL (3.85-5.65); White Blood Count 7.88 10^3/uL (3.29-11.43)
[2025-02-15 10:29] LABS: Alanine Aminotransferase 162 U/L (0-33); Albumin Level 4.2 g/dL (3.5-5.2); Alkaline Phosphatase 89 U/L (35-105); Anion Gap 17.5 (5-19); Aspartate Amino Transferase 216 U/L (0-32); Blood Urea Nitrogen 17 mg/dL (8-23); Calcium 9.8 mg/dL (8.5-10.5); Carbon Dioxide 25 mmol/L (22-29); Chloride 100 mmol/L (98-107); Creatinine Clr Calc Pharmacy 48.1939; Globulin 3.1 g/dL (1.3-4.6); Glucose 108 mg/dL (65-115); Osmolality Calculated 290 mOsm/kg (285-295); Potassium 3.5 mmol/L (3.5-5.1); Sodium 139 mmol/L (136-145); Total Protein 7.3 g/dL (6.6-8.7)
[2025-02-15 10:40] LABS: Glucose Urine UA Negative (Normal); Nitrate Urine Negative (Negative); Specific Gravity, Urine 1.015 (1.005-1.030)
[2025-02-15 10:43] LABS: Add Urine Microscopic? YES
--- NOTE | 2025-02-15 10:56 | XR_ITS ---
WS: [id number] Lumbar spine, 3 views, 02/15/2025 Clinical Data: Pain history of breast cancer mets Comparison: None. Findings: There is a dextroscoliosis. There our compression fractures of the L2 and L3 vertebral bodies with loss of more than 50% of the central vertebral body height. There may be osteoblastic changes of all the lumbar vertebral bodies consistent with metastatic disease. There may be lytic changes of the right ilium again consistent with metastatic disease. The disc heights are minimally narrow at all levels except L4-L5. At L4-L5 there is a 0.5 cm anterior subluxation. The transverse processes are osteoporotic and there may be lytic changes on the left processes L1-L4. The SI joints are normal. XR/XR lumbar spine 2-3V* [id number] Impression: 1. Compression fractures of L2 and L3. 2. Osteoblastic changes of the lumbar vertebral bodies. 3. Osteolytic changes of the right ilium. 4. Dextroscoliosis. 5. Anterolisthesis of L4 on L5.
[2025-02-15 11:26] VITALS: RESP 18; O2SAT 95
[2025-02-15] MEDS: oxyCODONE 5 mg IR Tab/Cap 10 MG PO (11:26)
[2025-02-15 13:20] VITALS: BP 157/84; PULSE 78; O2SAT 92
== END 2025-02-15 13:45 | disposition home or self-care (01) ==
PROVIDERS: Emergency Provider Family Medicine; PCP Family Medicine
DX: S32.020A Wedge compression fracture of second lumbar vertebra, initial encounter for closed fracture (principal); S32.030A Wedge compression fracture of third lumbar vertebra, initial encounter for closed fracture; C50.111 Malignant neoplasm of central portion of right female breast; C79.51 Secondary malignant neoplasm of bone; Z87.891 Personal history of nicotine dependence; X58.XXXA Exposure to other specified factors, initial encounter
CPT/HCPCS: 36415; 72100; 80053; 81001; 85025; 99284; J9999

== ENCOUNTER 2025-02-17 14:44 | Oncology outpatient (recurring) (ONCR) | payer OTHER, MEDICAID, SELFPAY ==
[2025-02-17 15:40] LABS: Hematocrit 33.8 % (36-47); Hemoglobin 11.00 g/dL (11.27-16.99); Mean Corpuscular HGB Conc 32.5 g/dL (30-55); Mean Corpuscular Hemoglobin 29.9 pg (27-33); Mean Corpuscular Volume 91.8 fl (85-98); Nucleated Red Blood Cells % 0 %; Platelet Count 352 10^3/cmm (157-399); Red Blood Count 3.68 10^6/uL (3.85-5.65); White Blood Count 6.75 10^3/uL (3.29-11.43)
[2025-02-17 15:55] LABS: Alanine Aminotransferase 110 U/L (0-33); Albumin Level 4.1 g/dL (3.5-5.2); Alkaline Phosphatase 83 U/L (35-105); Anion Gap 13.8 (5-19); Aspartate Amino Transferase 89 U/L (0-32); Blood Urea Nitrogen 21 mg/dL (8-23); Calcium 9.6 mg/dL (8.5-10.5); Carbon Dioxide 26 mmol/L (22-29); Chloride 100 mmol/L (98-107); Creatinine Clr Calc Pharmacy 54.7273; Ferritin 642 ng/mL (15-150); Globulin 2.9 g/dL (1.3-4.6); Glucose 95 mg/dL (65-115); Iron 31 ug/dL (37-145); Osmolality Calculated 285 mOsm/kg (285-295); Potassium 3.8 mmol/L (3.5-5.1); Sodium 136 mmol/L (136-145); Total Iron Binding Capacity 195 mcg/dl; Total Protein 7.0 g/dL (6.6-8.7); Unsaturated Iron Binding 164 ug/dL (112-347)
[2025-02-17 16:09] LABS: Vitamin B12 1373 pg/mL (232-1245)
[2025-02-17] MEDS: zoledronic acid (Zometa) 4 MG/100 ML PIGGYBACK 400 MG IV (16:20)
== END 2025-03-08 23:59 | disposition home or self-care (01) ==
PROVIDERS: PCP Family Medicine; Visit Provider Internal Medicine
DX: C50.111 Malignant neoplasm of central portion of right female breast (principal); Z17.0 Estrogen receptor positive status [ER+]; C79.51 Secondary malignant neoplasm of bone; D64.9 Anemia, unspecified; G89.3 Neoplasm related pain (acute) (chronic); Z87.891 Personal history of nicotine dependence; Z79.899 Other long term (current) drug therapy
CPT/HCPCS: 36415; 80053; 82607; 82728; 82746; 83010; 83540; 83550; 83615; 85025; 96365; 99213; J3489

== ENCOUNTER 2025-03-18 14:41 | Inpatient (IN) | payer OTHER, MEDICAID, SELFPAY ==
[2025-03-18] VITALS (9 sets, daily range): BP systolic 114–166; BP diastolic 71–85; PULSE 92–120; RESP 16–18; TEMP 36.6–37.2; O2SAT 90–94; BMI 16.6; BMI 15.3
--- NOTE | 2025-03-18 15:08 | CTR_ITS ---
PROCEDURE INFORMATION: Exam: CT Thoracic Spine Without Contrast Exam date and time: 03/18/2025 3:23 PM Age: 69 years old Clinical indication: Pain in thoracic spine; Additional info: Decree sensation legs history of metastatic breast cancer TECHNIQUE: Imaging protocol: Computed tomography of the thoracic spine without contrast. Radiation optimization: All CT scans at this facility use at least one of these dose optimization techniques: automated exposure control; mA and/or kV adjustment per patient size (includes targeted exams where dose is matched to clinical indication); or iterative reconstruction. COMPARISON: PT PET skull to thigh SUBS [id number] 12/17/2024 3:04 PM RADIATION DOSE METRICS: Total DLP (mGy-cm): 312.4 FINDINGS: Bones/joints: 15 mm region heterogeneous sclerosis anteriorly in the T9 vertebral body. Vertebral body height is maintained. 15 mm region of heterogeneous sclerosis and lucency in the left posterolateral T10 vertebral body without resultant height loss. Small sclerotic densities are noted in the T7 and T8 vertebral bodies. Scattered subchondral lucencies throughout the thoracic spine represents degenerative disc disease and Schmorl's nodes. Slight inferior endplate depression of T9. No significant thoracic vertebral body height loss or evidence for acute fracture. 8 mm soft tissue mass in the left T9 foramen could represent disc protrusion or metastatic disease. Mass results in moderate left T9 foraminal narrowing. Lytic destruction of the L1 vertebral segment is incompletely imaged on this exam, but discussed on concurrent lumbar spine CT. Soft tissues: Well-defined 4.6 cm cystic appearing subcutaneous mass in the midline posterior to the T4 and T5 vertebral bodies. CT/CT thoracic spin wo con* [id number] IMPRESSION: 1. Sclerotic and lytic metastases noted from T7 through T10, without resultant vertebral body height loss or significant epidural mass. 2. Extensive lytic destruction and soft tissue mass associated with L1, discussed on concurrent lumbar spine CT. 3. 4.6 cm well-defined subcutaneous cystic mass overlying the posterior midline upper thoracic spine.
--- NOTE | 2025-03-18 15:08 | CTR_ITS ---
PROCEDURE INFORMATION: Exam: CT Lumbar Spine Without Contrast Exam date and time: 03/18/2025 3:23 PM Age: 69 years old Clinical indication: Low back pain; Additional info: Decreased sensation in the legs history metastatic breast CA TECHNIQUE: Imaging protocol: Computed tomography of the lumbar spine without contrast. Radiation optimization: All CT scans at this facility use at least one of these dose optimization techniques: automated exposure control; mA and/or kV adjustment per patient size (includes targeted exams where dose is matched to clinical indication); or iterative reconstruction. COMPARISON: PT PET skull to thigh SUBS [id number] 12/17/2024 3:04 PM RADIATION DOSE METRICS: Total DLP (mGy-cm): 256.2 FINDINGS: Bones/joints: Destructive lytic metastatic disease is present throughout the visualized lumbar spine and proximal sacrum. L1: Extensive lytic destruction results in severe height loss and 8 mm of posterior retropulsion of the superior endplate into the left lateral recess. Moderate spinal canal narrowing at L1. Bilateral L1 foraminal narrowing relating to expansile neoplasm in both transverse processes. L2: Extensive lytic destruction throughout vertebral segment resulting in severe compression fracture with anterior and posterior vertebral margin displacement. Mild resultant osseous spinal canal narrowing, likely moderate in degree considering some associated epidural soft tissue. Severe bilateral foraminal narrowing. L3: Extensive lytic destruction resulting in severe vertebral body height loss and moderate spinal canal narrowing. Probable severe bilateral foraminal narrowing. L4: 4 cm expansile lytic mass in the right vertebral body, extending into the right foramen and right epidural space. No vertebral body height loss. Severe spinal canal narrowing and right foraminal narrowing. L5: Sclerotic and lytic lesions throughout the vertebral segment resulting in mild spinal canal narrowing and mild retropulsion of the inferior endplate. Mild spinal canal narrowing. S1: 4 cm expansile mass involves the posterior vertebral body and left sacral ala, near completely occluding sacral spinal canal. Epidural mass narrows the left S1 foramen. Soft tissues: Extensive paraspinal neoplasm surrounds the L1, L2 and L3 vertebral bodies CT/CT lumbar spine wo con* [id number] IMPRESSION: Extensive lytic metastatic disease and associated expansile soft tissue masses throughout the lumbar spine as described above. Multilevel instability including the L1, L2, L3 and L4 levels. Multilevel severe foraminal narrowing and moderate to severe spinal canal narrowing, detailed above. Assessment for the degree of spinal canal narrowing should include MRI.
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
[2025-03-18 15:14] LABS: Hematocrit 35.0 % (36-47); Hemoglobin 11.60 g/dL (11.27-16.99); Mean Corpuscular HGB Conc 33.1 g/dL (30-55); Mean Corpuscular Hemoglobin 30.2 pg (27-33); Mean Corpuscular Volume 91.1 fl (85-98); Nucleated Red Blood Cells % 0 %; Platelet Count 424 10^3/cmm (157-399); Red Blood Count 3.84 10^6/uL (3.85-5.65); White Blood Count 7.63 10^3/uL (3.29-11.43)
[2025-03-18 15:30] LABS: Alanine Aminotransferase 56 U/L (0-33); Albumin Level 4.0 g/dL (3.5-5.2); Alkaline Phosphatase 107 U/L (35-105); Anion Gap 16.8 (5-19); Aspartate Amino Transferase 84 U/L (0-32); Blood Urea Nitrogen 20 mg/dL (8-23); Calcium 9.8 mg/dL (8.5-10.5); Carbon Dioxide 24 mmol/L (22-29); Chloride 99 mmol/L (98-107); Creatinine Clr Calc Pharmacy 48.1939; Globulin 2.9 g/dL (1.3-4.6); Glucose 186 mg/dL (65-115); Osmolality Calculated 289 mOsm/kg (285-295); Potassium 3.8 mmol/L (3.5-5.1); Sodium 136 mmol/L (136-145); Total Protein 6.9 g/dL (6.6-8.7)
[2025-03-18 16:41] LABS: Glucose Urine UA Negative (Normal); Nitrate Urine Negative (Negative); Specific Gravity, Urine 1.022 (1.005-1.030)
[2025-03-18 16:59] LABS: UA Manual Slide Review YES
[2025-03-18 17:00] LABS: Add Urine Microscopic? YES
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
[2025-03-18] MEDS: oxyCODONE 5 mg IR Tab/Cap 20 MG PO (20:49)
[2025-03-19] VITALS (15 sets, daily range): BP systolic 102–121; BP diastolic 62–72; PULSE 80–94; RESP 15–17; TEMP 36.6–36.8; O2SAT 94–96
[2025-03-19] MEDS: oxyCODONE 5 mg IR Tab/Cap 20 MG PO ×5 (00:49→19:48)
[2025-03-19] MEDS: oxyCODONE 5 mg IR Tab/Cap PO ×3 (03:19→22:01)
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
--- NOTE | 2025-03-19 11:39 | P.PN_ITS ---
Subjective 2 Subjective: 69-year-old female with parapl egia states her numbness is a little bit less and she has a little bit more function of her legs post steroid. She tells me that Dr. Champion states MRI can be done today. Patient tells me she does not want to go to a longterm and has a sister and many grandkids that are adult and strong they can help her at home. She does want to see if anything can be done for the cancer while she is here. Vitals/I&O/Wt Last Vital Signs Temp 98.1 F 03/19/25 08:24 Pulse 82 03/19/25 08:24 Resp 16 03/19/25 09:46 BP 121/72 03/19/25 08:24 Pulse Ox 95 03/19/25 10:06 O2 Del Method Room Air 03/19/25 10:06 03/18/25 03/19/25 03/19/25 22:59 06:59 14:59 Intake Total 640 / 640 360 / 360 Output Total 200 / 200 400 / 400 Balance 440 / 440 -40 / -40 Weight last 48 hrs Weight 41.73 kg Weight 41.776 kg Weight 45.359 kg Physical Exam 2 Narrative: General well-developed cachectic female in no acute cardiopulmonary distress CV regular rate and rhythm Lungs clear to auscultation bilaterally Abdomen positive bowel tones soft Groin no femoral adenopathy Neuro patient moves upper extremities however lower extremities patient is able to sense with reasonable accuracy touching hallux, ball of foot heel and toes on either foot with eyes closed. She has 4/5 left foot ankle extension 3 - flexion right foot 4 - extension 3 - flexion I can see movement with her trying to bring her knees up but there is minimal movement. She cannot overcome gravity to raise her heels up the floor or flex her knees Data 03/18/25 15:09 03/18/25 15:09 A&P Assessment and plan 1. Acute flaccid paraplegia: Patient mid to the hospital with steroids but anticipate progressive permanent paraplegia. She has MRI ordered by Dr. Champion who is evaluating to see if there is beneficial surgery. If cancer debulking can be done that may be useful acutely. Other acute option would be transfer for inpatient radiation. I do not think that waiting for radiation on Friday will allow meaningful recovery. Lastly this is all related to metastatic cancer which is terminal and any gains are of limited benefit because the disease is continuing to progress. 2. Metastatic malignant neoplasm to breast: This is terminal. Patient still desires full CODE STATUS as discussed today 3. Severe protein-calorie malnutrition: Regular diet and food supplements. PDMP PDMP Reviewed: Not Reviewed Attestations 2 Medical Necessity Statement*: Patient remains in the hospital for steroids, PT and OT evaluation and determination of safe discharge. Surgery remains a possible option and I offered her again transfer for evaluation by radiation oncology Coding Level of Care Code 68622 Diagnoses Acute flaccid paraplegia G82.20 Metastatic malignant neoplasm to breast C79.81 Severe protein-calorie malnutrition E43 Time Spent (min) 35
[2025-03-19] MEDS: [UNRECOGNIZED DRUG - OTHER] 345 EACH PO (22:12)
[2025-03-20] VITALS (16 sets, daily range): BP systolic 92–145; BP diastolic 50–78; PULSE 70–84; RESP 15–20; TEMP 36.6–36.9; O2SAT 91–97
--- NOTE | 2025-03-20 00:29 | PC.NURSE ---
Patient and family upset due to patients home medication being sent to pharmacy for patient to take at 1800. Nurse attempted to explain to patient that the pharmacy staff left for the day at 1800 and medication had not been verified by pharmacy or sent back with a label for nurse to scan for administration. This nurse apologized for the delay in medication being administered. Patient stated Apologizing does not change the fact that I haven't received it. Give me the medicine and I will give it to myself. That medication is important for my health. This nurse explained to patient that the medication is down in pharmacy and i had no way of getting the medication. Patient became more upset and demanding to speak with nursing insurance claims supervisor. This nurse talked to charge nurse WADE Mackay and household appliance repairer to see what could be done. agronomy supervisor contacted pharmacist paper cone machine operator to come in and verify and label medication for patient in order for it to be administered. Once medication was sent up from pharmacy the nurse went to give medication to patient. Patient demanded she keep medication in her room stating That is a $1400 dollar medication and I do not want it taken from my room, and I can not take it on and empty stomach it will make me sick. This nurse offered patient a sandwich which patient refused stating I cant eat those damn sandwiches they are like cardboard. this nurse tried to offer different options which patient declined. This nurse then tried to explain to patient that due to policy home medications are to be locked either in the pyxis machine or the patients medication bin. Patient continued to argue with nurse. This nurse apologized again for the delay with medication and again offered food options to which patient refused. This nurse excused herself from room and again talked to charge nurse. Patient decided to eat sandwich and asked for pain medication. Nurse went to administer both pain medication and cancer medication and patient stated Oh am i allowed my pain medication or do I have to beg for that also. Nurse explained to patient that she had received her main pain medication at 1930, and that her break through pain medication is being administered, patient took medication without further issue.
[2025-03-20] MEDS: oxyCODONE 5 mg IR Tab/Cap 20 MG PO ×6 (02:14→23:44)
[2025-03-20] MEDS: oxyCODONE 5 mg IR Tab/Cap PO (05:35)
--- NOTE | 2025-03-20 13:08 | P.PN_ITS ---
Subjective 2 Subjective: 69-year-old female with parapl egia states her legs are similar with some movement. Therapist report less than 25% range of motion. She did not get her MRI done yesterday as was not available patient tells me she does not want to go to a longterm because she has a house and 5 acres of value that she does not want to lose going to a longterm. She has low body weight and multiple 20-year-old grandchildren that can help her at home. She tells me that she wants to be full code until she can get her will finalized which was supposed to be done on Friday but then she required admission. Patient states she is interested in short-term rehab and then getting back home but not long-term care nursing facility. Patient does not want to go home today and wishes to speak with radiation oncology. She states she has spoken with the physician before and the nurses but has been fearful due to bad outcomes from appliances so did not proceed. She states her situation has changed and she would like to proceed. Vitals/I&O/Wt Last Vital Signs Temp 97.9 F 03/20/25 11:46 Pulse 82 03/20/25 11:46 Resp 18 03/20/25 13:04 BP 123/67 03/20/25 11:46 Pulse Ox 95 03/20/25 11:46 O2 Del Method Room Air 03/20/25 11:46 03/19/25 03/20/25 03/20/25 22:59 06:59 14:59 Intake Total 480 / 1200 440 / 1640 840 / 840 Output Total 400 / 800 400 / 400 Balance 480 / 800 40 / 840 440 / 440 Weight last 48 hrs Weight 41.73 kg Weight 41.73 kg Weight 41.776 kg Weight 45.359 kg Physical Exam 2 Narrative: General well-developed cachectic female in no acute cardiopulmonary distress CV regular rate and rhythm Lungs clear to auscultation bilaterally Abdomen positive bowel tones soft Groin no femoral adenopathy Neuro patient moves upper extremities however lower extremities patient is able to sense with reasonable accuracy touching hallux, ball of foot heel and toes on either foot with eyes closed. She has 4 -/5 left foot ankle extension 3 - flexion right ankle 4+ extension 3 - flexion I can see movement with her trying to bring her knees up but there is minimal movement. She cannot overcome gravity to raise her heels up the floor or flex her knees Patient requires assistance to sit up from supine position. Patient with a masslike ganglion cyst multilobulated on the dorsum of her right hand 3 cm in diameter. 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 Acute flaccid paraplegia: Patient admitted to the hospital with steroids but anticipate progressive permanent paraplegia. She has MRI ordered by Dr. Champion who is evaluating to see if there is beneficial surgery. I discussed with him yesterday and he states that there is no bone or vertebra to put screws to. If cancer debulking can be done that may be useful acutely but again we have not the ability to do MRI as of yesterday and radiation is likely also too late by Friday. Patient does wish to speak with radiation oncology and knew the risks of staying at this hospital through the weekend. She request additional time in the hospital to speak with services and transport that she has been in contact with. She would like to have a consultation with radiation oncology. Decrease Decadron to 4 mg twice a day p.o. 2. Metastatic malignant neoplasm to breast: This is terminal. Patient still desires full CODE STATUS as discussed today 03/20/2025 until she can get her will and affairs in order. 3. Severe protein-calorie malnutrition: Regular diet and food supplements. Patient is willing to try appetite stimulant. Already Decadron may be stimulating her appetite as well PDMP PDMP Reviewed: Not Reviewed Attestations 2 Medical Necessity Statement*: Patient laure in the hospital for 1 more day 2 to speak with director of social media marketing and arrange outpatient discharge likely to home if he is declining long-term care. Physical therapy may recommend [facility] facility at which point that would be beneficial. Coding Level of Care Code Acute Code for Chg Fwd Diagnoses Acute flaccid paraplegia G82.20 Metastatic malignant neoplasm to breast C79.81 Severe protein-calorie malnutrition E43 Time Spent (min) 35
[2025-03-20] MEDS: [UNRECOGNIZED DRUG - OTHER] 345 EACH PO (17:10)
--- NOTE | 2025-03-20 23:18 | PC.NURSE ---
patient with contiued pain. RN offered multiple other pain options including morphine, tylenol, dilaudid, tramadol, and ice packs. Patient refuses and states she will only take oxycodone, RN spoke with Dr. abraham over phone regarding pain, per MD give an addition 20 mg oxycodone now and start toradol 15 mg q6hr.
[2025-03-21] VITALS (10 sets, daily range): BP systolic 109–142; BP diastolic 62–80; PULSE 82–95; RESP 16–20; TEMP 36.5–37; O2SAT 94–96
--- NOTE | 2025-03-21 00:16 | PC.NURSE ---
Addendum entered by Ana Maria Gonzalez RN 03/21/25 00:37: patient forgetting about conversations and medications being given. RN offered IV toradol and patient refused. WADE Rodgers and Charge nurse мария spoke with patient about how she received an extra dose of oxycodone already with both RNs present and can have her next dose in 4 hours. patient repositioned and call light given. Original Note: Patient was screaming into the hallway regarding needing pain medication. WDAE Rodgers gave pain meds with charge nurse мария in the room earlier. patient stating she never recieved pain medication.
--- NOTE | 2025-03-21 02:28 | PC.NURSE ---
patient requesting pain medication. Oxycodone not due yet. RN again offered tylenol, toradol, and morphine. patient refuses at this time
--- NOTE | 2025-03-21 03:23 | PC.NURSE ---
Patient requesting pain medication. Pain meds not due for 20 more minutes. patient states someone has been taking her medication. RN informed her on time medication given and when next dose allowed. patient states I don't believe you charge nurse мария notified
[2025-03-21] MEDS: oxyCODONE 5 mg IR Tab/Cap 20 MG PO ×4 (03:34→19:48)
--- NOTE | 2025-03-21 03:40 | PC.NURSE ---
20mg of oxycodone given to patient. WADE toledo as second witness to medication administration
--- NOTE | 2025-03-21 09:33 | PC.CHAP ---
Pastoral Care Encounter/Spiritual Assessment Type of Contact [] Declined county bailiff visit [] Patient/Family/Request visit [] Outpatient visit [] Follow-up visit [] Physician referral [] Code/Alert [x] Routine visit [] Staff referral [] Actively dying [x] Patient sleeping [] Family support [] [] Out of room [] Palliative care [] [] Receiving care in room [] Pre-surgical visit [] Trauma [] Long length of stay [] ICU visit [] Other: Relational/Emotional Strength [] Patient feels connected with others/family/visitors/staff [] Distress [] Loneliness/isolation [] Abandonment Spirituality of Patient [] Person of Pamela [] Attends [employer]ist of their Pamela [] Believes in Prayer [] Reads Bible or Confucianism materials [] There are Spiritual issues to be addressed Display Decorator Interventions [x] Prayer [] Active listening [] Non-anxious presence [] Spiritual/emotional support [] Crisis/trauma care [] Spiritual counseling [] Bereavement support [] Provided bereavement packet [] Provided Bible/devotional materials [] Provided toy/stuffed animal, coloring book to patient or family member [] Provided Communion [] Anointing/[place] [] Salvation [] Completed spiritual assessment [] Other: Impact on Illness or Injury [] Angry [] Fearful [] Anxious [] Often cries [] Exhaustion [] Unable to work [] Unable to attend mandaeism [] Unable to walk/stand [] Unable to read [] Unable to drive [] Unable to eat/drink [] Unable to sleep [] Unable to be with family [] Patient intubated [] Other: Summary Time spent with patient
--- NOTE | 2025-03-21 10:14 | PC.NURSE ---
Paola Queen, RN in room with this nurse upon ministering 20mg of Oxy to patient. Patient has episodes of forgetting when pain medication given. Accusing nursing staff of taking pain medication instead of giving to patient.
--- NOTE | 2025-03-21 10:17 | PC.SOCIAL ---
IMM Update pg 2 of IMM Updated and reviewed w/ patient. Copy provided and copy dated, initialed and placed in chart.
--- NOTE | 2025-03-21 16:25 | P.PN_ITS ---
Subjective 2 Subjective: Patient states she worked with therapy today. She is waiting to meet with her remote encoding center manager were expected to be at her bedside for estate planning and has agreed to start radiation. Medications: Reviewed: Yes Vitals/I&O/Wt Last Vital Signs Temp 98.1 F 03/21/25 16:00 Pulse 82 03/21/25 16:00 Resp 16 03/21/25 16:00 BP 109/62 03/21/25 16:00 Pulse Ox 96 03/21/25 16:00 O2 Del Method Room Air 03/21/25 16:00 03/21/25 03/21/25 03/21/25 06:59 14:59 22:59 Intake Total 840 / 840 Output Total 400 / 400 Balance 440 / 440 Weight last 48 hrs Weight 41.504 kg Weight 41.73 kg Physical Exam 2 Narrative: General: No acute distress, AO x3, chronically ill-appearing, cachectic HEENT: PERRLA, pupils bilaterally equal and reactive, pallors not present Chest: Normal vesicular breath sounds, no added sounds, equal good air entry bilaterally CVS: S1-S2 regular, no murmurs, no tachycardia, no gallops, no rubs Abdomen: Soft, nontender, no organomegaly, bowel sounds present Neuro: No focal deficits, no facial deformity, AO x3, power 5/5 in all limbs Data 03/18/25 15:09 03/18/25 15:09 A&P Assessment and plan 1. Acute flaccid paraplegia: 2. Metastatic malignant neoplasm to breast: 3. Severe protein-calorie malnutrition: Regular diet and food supplements. Plan: March 21, 2025. Chart reviewed. 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 She is currently admitted to the hospital on March 18, 2025 after presenting with acute flaccid paralysis of the lower extremity. CT of her thoracic spine has noted sclerotic and lytic metastases T7-T10, extensive lytic destruction and soft tissue mass associated with L1. Lumbar CT further delineates there to be extensive lytic metastatic disease and associated expansile soft tissue masses throughout the lumbar spine, multilevel instability including L1-L2-L3 and L4 levels. Multilevel severe foraminal narrowing and moderate to severe spinal canal narrowing.Patient has been evaluated by spine surgery and is not considered to be a surgical candidate given extent of involvement. She has been offered radiation treatment. And is willing to start the treatment after she has completed her estate planning today. Radiation oncology recommendations appreciated. Case discussed with oncology. Unfortunately radiation at this point is purely palliative in nature. Hospice is considered appropriate. PDMP PDMP Reviewed: Not Reviewed Attestations 2 Medical Necessity Statement*: Patient to start radiation therapy. Ongoing goals of care discussion. Coding Level of Care Code Acute Code for Chg Fwd Diagnoses Acute flaccid paraplegia G82.20 Metastatic malignant neoplasm to breast C79.81 Severe protein-calorie malnutrition E43
[2025-03-21] MEDS: [UNRECOGNIZED DRUG - OTHER] 345 EACH PO (17:45)
[2025-03-22] VITALS (12 sets, daily range): BP systolic 106–130; BP diastolic 58–74; PULSE 82–94; RESP 16–22; TEMP 36.6–36.8; O2SAT 93–97
[2025-03-22] MEDS: oxyCODONE 5 mg IR Tab/Cap 20 MG PO ×6 (00:29→21:51)
--- NOTE | 2025-03-22 14:02 | P.PN_ITS ---
Subjective 2 Subjective: Complains of increased lower extremity weakness today compared to yesterday however she is attempting to move in bed and complete ADLs. Medications: Reviewed: Yes Vitals/I&O/Wt Last Vital Signs Temp 98.0 F 03/22/25 11:35 Pulse 90 03/22/25 11:35 Resp 18 03/22/25 13:39 BP 118/58 03/22/25 11:35 Pulse Ox 95 03/22/25 11:35 O2 Del Method Room Air 03/22/25 07:51 03/21/25 03/22/25 03/22/25 22:59 06:59 14:59 Intake Total 360 / 1200 960 / 960 Output Total 200 / 600 200 / 800 Balance 160 / 600 -200 / 400 960 / 960 Weight last 48 hrs Weight 42.774 kg Weight 41.504 kg Physical Exam 2 Narrative: General: No acute distress, AO x3, chronically ill-appearing, cachectic HEENT: PERRLA, pupils bilaterally equal and reactive, pallors not present Chest: Normal vesicular breath sounds, no added sounds, equal good air entry bilaterally CVS: S1-S2 regular, no murmurs, no tachycardia, no gallops, no rubs Abdomen: Soft, nontender, no organomegaly, bowel sounds present Neuro: No focal deficits, no facial deformity, AO x3, power 5/5 in all limbs Data 03/18/25 15:09 03/18/25 15:09 A&P Assessment and plan 1. Acute flaccid paraplegia: 2. Metastatic malignant neoplasm to breast: 3. Severe protein-calorie malnutrition: Regular diet and food supplements. Plan: March 21, 2025. Chart reviewed. 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 She is currently admitted to the hospital on March 18, 2025 after presenting with acute flaccid paralysis of the lower extremity. CT of her thoracic spine has noted sclerotic and lytic metastases T7-T10, extensive lytic destruction and soft tissue mass associated with L1. Lumbar CT further delineates there to be extensive lytic metastatic disease and associated expansile soft tissue masses throughout the lumbar spine, multilevel instability including L1-L2-L3 and L4 levels. Multilevel severe foraminal narrowing and moderate to severe spinal canal narrowing.Patient has been evaluated by spine surgery and is not considered to be a surgical candidate given extent of involvement. She has been offered radiation treatment. And is willing to start the treatment after she has completed her estate planning today. Radiation oncology recommendations appreciated. Case discussed with oncology. Unfortunately radiation at this point is purely palliative in nature. Hospice is considered appropriate. March 22, 2025 Patient is starting radiation treatment today. Plan treatment for 5 days. Continue dexamethasone 4 mg p.o. twice daily to minimize edema. Thereafter patient plans to return home with her sister. Not reday for hospice yet. PDMP PDMP Reviewed: Not Reviewed Attestations 2 Medical Necessity Statement*: starting radiation treatment Coding Level of Care Code Acute Code for Chg Fwd Diagnoses Acute flaccid paraplegia G82.20 Metastatic malignant neoplasm to breast C79.81 Severe protein-calorie malnutrition E43
[2025-03-22] MEDS: [UNRECOGNIZED DRUG - OTHER] 345 EACH PO (17:19)
[2025-03-23] VITALS (13 sets, daily range): BP systolic 115–124; BP diastolic 58–80; PULSE 64–111; RESP 16–20; TEMP 36.4–36.8; O2SAT 94–97
[2025-03-23] MEDS: oxyCODONE 5 mg IR Tab/Cap 20 MG PO ×6 (00:52→20:55)
[2025-03-23 05:13] LABS: Hematocrit 34.7 % (36-47); Hemoglobin 11.20 g/dL (11.27-16.99); Mean Corpuscular HGB Conc 32.3 g/dL (30-55); Mean Corpuscular Hemoglobin 30.1 pg (27-33); Mean Corpuscular Volume 93.3 fl (85-98); Nucleated Red Blood Cells % 0.1 %; Platelet Count 401 10^3/cmm (157-399); Red Blood Count 3.72 10^6/uL (3.85-5.65); White Blood Count 15.60 10^3/uL (3.29-11.43)
[2025-03-23 05:37] LABS: Alanine Aminotransferase 30 U/L (0-33); Albumin Level 3.6 g/dL (3.5-5.2); Alkaline Phosphatase 120 U/L (35-105); Anion Gap 16.7 (5-19); Aspartate Amino Transferase 71 U/L (0-32); Blood Urea Nitrogen 33 mg/dL (8-23); Calcium 9.3 mg/dL (8.5-10.5); Carbon Dioxide 24 mmol/L (22-29); Chloride 100 mmol/L (98-107); Creatinine Clr Calc Pharmacy 45.4474; Globulin 2.6 g/dL (1.3-4.6); Glucose 95 mg/dL (65-115); Osmolality Calculated 289 mOsm/kg (285-295); Potassium 4.7 mmol/L (3.5-5.1); Sodium 136 mmol/L (136-145); Total Protein 6.2 g/dL (6.6-8.7)
--- NOTE | 2025-03-23 11:46 | PC.NURSE ---
This nurse along with Katy manager cath lab went to discuss pain medicine with the patient. Patient was asking for an increase in her oxycodone which is currently ordered 20mg Q4H. This nurse contacted Dr. Mcintyre. Dr. Mcintyre stated she would order a fentanyl patch. This nurse updated patient and she refused stating fentanyl would kill me . This nurse offered morphine and toradol and patient refused both of those as well. Dr. Mcintyre stated she would order IV dilaudid to premedicate for radiation.
--- NOTE | 2025-03-23 15:57 | P.PN_ITS ---
Subjective 2 Subjective: Patient started radiation treatment yesterday. No new complaints today except for pain during treatment. Medications: Reviewed: Yes Vitals/I&O/Wt Last Vital Signs Temp 98.1 F 03/23/25 11:23 Pulse 84 03/23/25 11:23 Resp 18 03/23/25 13:15 BP 115/64 03/23/25 11:23 Pulse Ox 96 03/23/25 11:23 O2 Del Method Room Air 03/23/25 11:23 03/23/25 03/23/25 03/23/25 06:59 14:59 22:59 Intake Total 840 / 840 Output Total 200 / 200 300 / 300 Balance -200 / 1240 540 / 540 Weight last 48 hrs Weight 43.273 kg Weight 42.774 kg Physical Exam 2 Narrative: General: No acute distress, AO x3, chronically ill-appearing, cachectic HEENT: PERRLA, pupils bilaterally equal and reactive, pallors not present Chest: Normal vesicular breath sounds, no added sounds, equal good air entry bilaterally CVS: S1-S2 regular, no murmurs, no tachycardia, no gallops, no rubs Abdomen: Soft, nontender, no organomegaly, bowel sounds present Neuro: No focal deficits, no facial deformity, AO x3, power 5/5 in all limbs Data 03/23/25 05:05 03/23/25 05:05 A&P Assessment and plan 1. Acute flaccid paraplegia: 2. Metastatic malignant neoplasm to breast: 3. Severe protein-calorie malnutrition: Regular diet and food supplements. Plan: March 21, 2025. Chart reviewed. 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 She is currently admitted to the hospital on March 18, 2025 after presenting with acute flaccid paralysis of the lower extremity. CT of her thoracic spine has noted sclerotic and lytic metastases T7-T10, extensive lytic destruction and soft tissue mass associated with L1. Lumbar CT further delineates there to be extensive lytic metastatic disease and associated expansile soft tissue masses throughout the lumbar spine, multilevel instability including L1-L2-L3 and L4 levels. Multilevel severe foraminal narrowing and moderate to severe spinal canal narrowing.Patient has been evaluated by spine surgery and is not considered to be a surgical candidate given extent of involvement. She has been offered radiation treatment. And is willing to start the treatment after she has completed her estate planning today. Radiation oncology recommendations appreciated. Case discussed with oncology. Unfortunately radiation at this point is purely palliative in nature. Hospice is considered appropriate. March 22, 2025 Patient is starting radiation treatment today. Plan treatment for 5 days. Continue dexamethasone 4 mg p.o. twice daily to minimize edema. Thereafter patient plans to return home with her sister. Not reday for hospice yet. March 23, 2025 Started radiation treatment on 03/23/2025. Plan day 2 of 5 today. Continue dexamethasone 4 mg p.o. twice daily. Oxycodone 20 mg IR to be administered just prior to treatment for pain management. Plan treatment duration of 5 days total. PDMP PDMP Reviewed: Not Reviewed Attestations 2 Medical Necessity Statement*: Ongoing radiation therapy Coding Level of Care Code Acute Code for Chg Fwd Diagnoses Acute flaccid paraplegia G82.20 Metastatic malignant neoplasm to breast C79.81 Severe protein-calorie malnutrition E43
[2025-03-23] MEDS: [UNRECOGNIZED DRUG - OTHER] 345 EACH PO (16:03)
[2025-03-24] VITALS (11 sets, daily range): BP systolic 103–114; BP diastolic 55–67; PULSE 77–95; RESP 15–18; TEMP 36.7–37; O2SAT 92–96
[2025-03-24] MEDS: oxyCODONE 5 mg IR Tab/Cap 20 MG PO ×5 (00:56→23:25)
--- NOTE | 2025-03-24 12:38 | PC.NURSE ---
Patient refused toradol, stating it made her radiation burn even more. she stated she would wait until 1330 to take her other pain med before radiation
--- NOTE | 2025-03-24 16:36 | P.PN_ITS ---
Subjective 2 Subjective: No acute interval events. Day 3 out of 5 for radiation therapy today. Medications: Reviewed: Yes Vitals/I&O/Wt Last Vital Signs Temp 98.6 F 03/24/25 15:30 Pulse 82 03/24/25 15:30 Resp 16 03/24/25 15:30 BP 107/55 03/24/25 15:30 Pulse Ox 96 03/24/25 15:30 O2 Del Method Room Air 03/24/25 15:30 03/24/25 03/24/25 03/24/25 06:59 14:59 22:59 Intake Total 480 / 1800 100 / 100 Output Total 700 / 1350 Balance -220 / 450 100 / 100 Weight last 48 hrs Weight 45.473 kg Weight 43.273 kg Physical Exam 2 Narrative: General: No acute distress, AO x3, chronically ill-appearing, cachectic HEENT: PERRLA, pupils bilaterally equal and reactive, pallors not present Chest: Normal vesicular breath sounds, no added sounds, equal good air entry bilaterally CVS: S1-S2 regular, no murmurs, no tachycardia, no gallops, no rubs Abdomen: Soft, nontender, no organomegaly, bowel sounds present Neuro: No focal deficits, no facial deformity, AO x3, power 5/5 in all limbs Data 03/23/25 05:05 03/23/25 05:05 A&P Assessment and plan 1. Acute flaccid paraplegia: 2. Metastatic malignant neoplasm to breast: 3. Severe protein-calorie malnutrition: Regular diet and food supplements. Plan: March 21, 2025. Chart reviewed. 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 She is currently admitted to the hospital on March 18, 2025 after presenting with acute flaccid paralysis of the lower extremity. CT of her thoracic spine has noted sclerotic and lytic metastases T7-T10, extensive lytic destruction and soft tissue mass associated with L1. Lumbar CT further delineates there to be extensive lytic metastatic disease and associated expansile soft tissue masses throughout the lumbar spine, multilevel instability including L1-L2-L3 and L4 levels. Multilevel severe foraminal narrowing and moderate to severe spinal canal narrowing.Patient has been evaluated by spine surgery and is not considered to be a surgical candidate given extent of involvement. She has been offered radiation treatment. And is willing to start the treatment after she has completed her estate planning today. Radiation oncology recommendations appreciated. Case discussed with oncology. Unfortunately radiation at this point is purely palliative in nature. Hospice is considered appropriate. March 22, 2025 Patient is starting radiation treatment today. Plan treatment for 5 days. Continue dexamethasone 4 mg p.o. twice daily to minimize edema. Thereafter patient plans to return home with her sister. Not reday for hospice yet. March 23, 2025 Started radiation treatment on 03/23/2025. Plan day 2 of 5 today. Continue dexamethasone 4 mg p.o. twice daily. Oxycodone 20 mg IR to be administered just prior to treatment for pain management. Plan treatment duration of 5 days total. March 24, 2025 Day 3 out of 5 for radiation therapy today. Pain is better controlled with oxycodone administration just prior to radiation. Once radiation treatment is completed, patient is planning to return home with sister She will likely benefit from a hospital bed as she is unable to lay flat due to pain. Elevation with head of bed to 30 degree helps her with pain management. Additionally she is currently utilizing a trapeze for ADLs in bed, we will attempt to arrange this for home use additionally. PDMP PDMP Reviewed: Not Reviewed Attestations 2 Medical Necessity Statement*: ongoing radiation therapy Coding Level of Care Code Acute Code for Chg Fwd Diagnoses Acute flaccid paraplegia G82.20 Metastatic malignant neoplasm to breast C79.81 Severe protein-calorie malnutrition E43
[2025-03-24] MEDS: [UNRECOGNIZED DRUG - OTHER] 345 EACH PO (16:52)
--- NOTE | 2025-03-24 17:43 | PC.NURSE ---
patient refused toradol, said it casued her more pain and requested her OXYcodone instead.
[2025-03-25] VITALS (11 sets, daily range): BP systolic 106–130; BP diastolic 57–75; PULSE 78–96; RESP 16–20; TEMP 36.6–37; O2SAT 94–98
[2025-03-25] MEDS: oxyCODONE 5 mg IR Tab/Cap 20 MG PO ×5 (03:33→20:58)
--- NOTE | 2025-03-25 10:44 | PC.SOCIAL ---
IMM Update pg 2 of IMM updated and reviewed w/ patient. Copy provided and copy dated, initialed and placed in chart.
--- NOTE | 2025-03-25 16:13 | P.PN_ITS ---
Subjective 2 Subjective: No new complaints today except for pain related to radiation therapy. Planned RT today this morning. Medications: Reviewed: Yes Vitals/I&O/Wt Last Vital Signs Temp 98.4 F 03/25/25 11:34 Pulse 96 03/25/25 11:34 Resp 18 03/25/25 14:46 BP 129/57 03/25/25 11:34 Pulse Ox 96 03/25/25 14:46 O2 Del Method Room Air 03/25/25 11:34 03/25/25 03/25/25 03/25/25 06:59 14:59 22:59 Intake Total 960 / 960 Output Total 400 / 600 120 / 120 Balance -400 / -260 840 / 840 Weight last 48 hrs Weight 44.679 kg Weight 45.473 kg Physical Exam 2 Narrative: General: No acute distress, AO x3, chronically ill-appearing, cachectic HEENT: PERRLA, pupils bilaterally equal and reactive, pallors not present Chest: Normal vesicular breath sounds, no added sounds, equal good air entry bilaterally CVS: S1-S2 regular, no murmurs, no tachycardia, no gallops, no rubs Abdomen: Soft, nontender, no organomegaly, bowel sounds present Neuro: No focal deficits, no facial deformity, AO x3, power 5/5 in all limbs Data 03/23/25 05:05 03/23/25 05:05 A&P Assessment and plan 1. Acute flaccid paraplegia: 2. Metastatic malignant neoplasm to breast: 3. Severe protein-calorie malnutrition: Regular diet and food supplements. Plan: March 21, 2025. Chart reviewed. 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 She is currently admitted to the hospital on March 18, 2025 after presenting with acute flaccid paralysis of the lower extremity. CT of her thoracic spine has noted sclerotic and lytic metastases T7-T10, extensive lytic destruction and soft tissue mass associated with L1. Lumbar CT further delineates there to be extensive lytic metastatic disease and associated expansile soft tissue masses throughout the lumbar spine, multilevel instability including L1-L2-L3 and L4 levels. Multilevel severe foraminal narrowing and moderate to severe spinal canal narrowing.Patient has been evaluated by spine surgery and is not considered to be a surgical candidate given extent of involvement. She has been offered radiation treatment. And is willing to start the treatment after she has completed her estate planning today. Radiation oncology recommendations appreciated. Case discussed with oncology. Unfortunately radiation at this point is purely palliative in nature. Hospice is considered appropriate. March 22, 2025 Patient is starting radiation treatment today. Plan treatment for 5 days. Continue dexamethasone 4 mg p.o. twice daily to minimize edema. Thereafter patient plans to return home with her sister. Not reday for hospice yet. March 23, 2025 Started radiation treatment on 03/23/2025. Plan day 2 of 5 today. Continue dexamethasone 4 mg p.o. twice daily. Oxycodone 20 mg IR to be administered just prior to treatment for pain management. Plan treatment duration of 5 days total. March 24, 2025 Day 3 out of 5 for radiation therapy today. Pain is better controlled with oxycodone administration just prior to radiation. Once radiation treatment is completed, patient is planning to return home with sister She will likely benefit from a hospital bed as she is unable to lay flat due to pain. Elevation with head of bed to 30 degree helps her with pain management. Additionally she is currently utilizing a trapeze for ADLs in bed, we will attempt to arrange this for home use additionally. March 25, 2025 Day 4 out of 5 for radiation therapy today. Complains of pain at site of radiation which is relieved with oral oxycodone administration. Will plan on total 5 days of RT. Thereafter discharged home with patient's sister, she will need a hospital bed at discharge as noted above. Leukocytosis noted on March 23, 2025 more likely to be margination related to high-dose steroid use. Will recheck with a.m. labs. No current localizing signs or symptoms of infection noted. Home health was attempted to be arranged, however has been declined due to insurance problems. Declines transition to hospice at this current time. PDMP PDMP Reviewed: Not Reviewed Attestations 2 Medical Necessity Statement*: Continue radiation treatment Coding Level of Care Code Acute Code for Chg Fwd Diagnoses Acute flaccid paraplegia G82.20 Metastatic malignant neoplasm to breast C79.81 Severe protein-calorie malnutrition E43
--- NOTE | 2025-03-25 18:37 | PC.NURSE ---
Patient refused 1700 medications, she stated she would rather have oxycodone
--- NOTE | 2025-03-25 21:11 | PC.NURSE ---
pt refused at this time, wants to wait
[2025-03-26] VITALS (11 sets, daily range): BP systolic 97–112; BP diastolic 59–66; PULSE 82–102; RESP 15–23; TEMP 36.6–37.2; O2SAT 93–99
[2025-03-26] MEDS: oxyCODONE 5 mg IR Tab/Cap 20 MG PO ×5 (00:56→21:07)
[2025-03-26 05:04] LABS: Hematocrit 33.1 % (36-47); Hemoglobin 10.70 g/dL (11.27-16.99); Mean Corpuscular HGB Conc 32.3 g/dL (30-55); Mean Corpuscular Hemoglobin 30.0 pg (27-33); Mean Corpuscular Volume 92.7 fl (85-98); Nucleated Red Blood Cells % 0.2 %; Platelet Count 377 10^3/cmm (157-399); Red Blood Count 3.57 10^6/uL (3.85-5.65); White Blood Count 11.05 10^3/uL (3.29-11.43)
[2025-03-26 05:27] LABS: Alanine Aminotransferase 17 U/L (0-33); Albumin Level 3.1 g/dL (3.5-5.2); Alkaline Phosphatase 87 U/L (35-105); Anion Gap 14.9 (5-19); Aspartate Amino Transferase 24 U/L (0-32); Blood Urea Nitrogen 23 mg/dL (8-23); Calcium 8.6 mg/dL (8.5-10.5); Carbon Dioxide 23 mmol/L (22-29); Chloride 101 mmol/L (98-107); Globulin 2.5 g/dL (1.3-4.6); Glucose 87 mg/dL (65-115); Osmolality Calculated 283 mOsm/kg (285-295); Potassium 3.9 mmol/L (3.5-5.1); Sodium 135 mmol/L (136-145); Total Protein 5.6 g/dL (6.6-8.7)
[2025-03-26 05:36] LABS: Creatinine Clr Calc Pharmacy 47.4714
--- NOTE | 2025-03-26 17:16 | PM.PN ---
Subjective Subjective: Patient with extensive metastatic lung disease on immunotherapy patient is undergoing therapy to follow through with the completion of the therapy on Friday. Patient cannot go to intermediate they do not do immunotherapy and cannot go to home health care as patient is declining so bad cannot help anybody help him. Patient is on supportive care with pain management Vitals/I&O/Wt Last Vital Signs Temp 99.0 F 03/26/25 16:00 Pulse 90 03/26/25 16:00 Resp 15 03/26/25 16:00 BP 102/64 03/26/25 16:00 Pulse Ox 97 03/26/25 16:00 O2 Del Method Room Air 03/26/25 16:00 03/26/25 03/26/25 03/26/25 06:59 14:59 22:59 Intake Total 360 / 360 Balance 360 / 360 Weight last 48 hrs Weight 45.858 kg Weight 44.679 kg Physical Exam Narrative: Patient ill-appearing HEENT normocephalic/atraumatic neck neck is supple cardiovascular heart is regular lungs are pretty much clear abdomen soft nontender nondistended unremarkable extremities are intact no edema has good pulses neurology has no focality lab studies lab studies reviewed and noted. Data 03/26/25 04:21 03/26/25 04:21 A&P Assessment and plan 1. Severe protein-calorie malnutrition: 2. Metastatic malignant neoplasm to breast: 3. Acute flaccid paraplegia: 4. Compression fracture of L2 vertebra: 5. Nausea & vomiting: Plan: Metastatic lung disease Patient is debilitated - On palliative care with supportive pain medication - Must continue to follow through and optimize - Patient on immunotherapy to complete on Friday and then will go home to the family - Patient and family are declining hospice at this time. On palliative care PDMP PDMP Reviewed: Not Reviewed Attestations Medical Necessity Statement*: Patient is in-house for immunotherapy at this time we will continue to follow through with immunotherapy until Friday for the fifth dose. Patient needs inpatient care for this therapy Coding Level of Care Code 68481 Diagnoses Severe protein-calorie malnutrition E43 Metastatic malignant neoplasm to breast C79.81 Acute flaccid paraplegia G82.20 Compression fracture of L2 vertebra S32.020A Nausea & vomiting R11.2 Time Spent (min) 40
[2025-03-26] MEDS: [UNRECOGNIZED DRUG - OTHER] 345 EACH PO (17:48)
[2025-03-27] VITALS (12 sets, daily range): BP systolic 104–128; BP diastolic 55–68; PULSE 81–88; RESP 15–18; TEMP 36.7–37.1; O2SAT 95–97
[2025-03-27] MEDS: oxyCODONE 5 mg IR Tab/Cap 20 MG PO ×6 (01:47→23:20)
[2025-03-27] MEDS: ferrous sulfate EC 325 mg Tablet PO (04:46)
[2025-03-27 05:51] LABS: Hematocrit 31.3 % (36-47); Hemoglobin 10.40 g/dL (11.27-16.99); Mean Corpuscular HGB Conc 33.2 g/dL (30-55); Mean Corpuscular Hemoglobin 30.8 pg (27-33); Mean Corpuscular Volume 92.6 fl (85-98); Nucleated Red Blood Cells % 0 %; Platelet Count 347 10^3/cmm (157-399); Red Blood Count 3.38 10^6/uL (3.85-5.65); White Blood Count 7.41 10^3/uL (3.29-11.43)
[2025-03-27 06:21] LABS: Alanine Aminotransferase 17 U/L (0-33); Albumin Level 3.0 g/dL (3.5-5.2); Alkaline Phosphatase 79 U/L (35-105); Anion Gap 13.2 (5-19); Aspartate Amino Transferase 21 U/L (0-32); Blood Urea Nitrogen 19 mg/dL (8-23); Calcium 8.3 mg/dL (8.5-10.5); Carbon Dioxide 24 mmol/L (22-29); Chloride 103 mmol/L (98-107); Globulin 2.7 g/dL (1.3-4.6); Glucose 133 mg/dL (65-115); Osmolality Calculated 286 mOsm/kg (285-295); Potassium 4.2 mmol/L (3.5-5.1); Sodium 136 mmol/L (136-145); Total Protein 5.7 g/dL (6.6-8.7)
[2025-03-27 06:22] LABS: Creatinine Clr Calc Pharmacy 46.5078
--- NOTE | 2025-03-27 07:00 | PC.NURSE ---
Patient refused her medication @2100, Lovenox and Xanax. Educated the patient what each medication was for and she still stated she did not want to take them. notified.
--- NOTE | 2025-03-27 16:53 | P.PN_ITS ---
Subjective 2 Subjective: Patient is in good spirits and in immunotherapy will follow through with the last of the therapy tomorrow and if all is scattered with the home bed delivery then patient can go home with family with home health Vitals/I&O/Wt Last Vital Signs Temp 98.4 F 03/27/25 16:00 Pulse 88 03/27/25 16:00 Resp 18 03/27/25 16:00 BP 128/68 03/27/25 16:00 Pulse Ox 96 03/27/25 16:00 O2 Del Method Room Air 03/27/25 16:00 Weight last 48 hrs Weight 43.772 kg Weight 45.858 kg Physical Exam 2 Narrative: Generally patient looks very cachectic rubbing the legs because of chronic pain due to cancer pain otherwise unremarkable HEENT normocephalic atraumatic neck neck is supple cardiovascular heart rate is regular lungs are pretty much clear abdomen is soft nontender nondistended unremarkable extremities are intact no edema has good pulses neurology has no focality lab studies lab studies reviewed and noted. Data 03/27/25 05:39 03/27/25 05:39 A&P Assessment and plan 1. Severe protein-calorie malnutrition: 2. Metastatic malignant neoplasm to breast: 3. Acute flaccid paraplegia: 4. Fullness of female pelvic organs: 5. Compression fracture of L2 vertebra: 6. Hypokalemia: 7. Nausea & vomiting: Plan: Patient with metastatic lung cancer with bony pain - On immunotherapy fifth dose to be completed tomorrow - Case management following up with delivery of bed and home equipment - Must continue to follow through and optimize - Patient likely will go home if everything is already for patient to be received at home upon completion of immunotherapy PDMP PDMP Reviewed: Not Reviewed Attestations 2 Medical Necessity Statement*: Will allow a day for discharge process Coding Level of Care Code 15722 Diagnoses Severe protein-calorie malnutrition E43 Metastatic malignant neoplasm to breast C79.81 Acute flaccid paraplegia G82.20 Fullness of female pelvic organs R19.00 Compression fracture of L2 vertebra S32.020A Hypokalemia E87.6 Nausea & vomiting R11.2 Time Spent (min) 45
[2025-03-28] VITALS (13 sets, daily range): BP systolic 105–149; BP diastolic 60–80; PULSE 80–104; RESP 16–21; TEMP 36.4–37.2; O2SAT 96–97; BMI 16.0
[2025-03-28] MEDS: oxyCODONE 5 mg IR Tab/Cap 20 MG PO ×6 (03:26→21:15)
[2025-03-28] MEDS: ferrous sulfate EC 325 mg Tablet PO (04:57)
--- NOTE | 2025-03-28 14:46 | P.DS_ITS ---
Discharge Providers Date of Admission: 03/18/25 18:12 Date of Discharge: March 28, 2025 Attending Provider at Admission: Daniel Penaloza MD Attending Provider at Discharge: Melissa Courtney MD Primary Care Provider: Jitendra Harper MD Diagnoses at Discharge Discharge Diagnosis 1. Severe protein-calorie malnutrition: 2. Metastatic malignant neoplasm to breast: 3. Acute flaccid paraplegia: 4. Fullness of female pelvic organs: 5. Compression fracture of L2 vertebra: 6. Hypokalemia: 7. Nausea & vomiting: Reason for Visit Reason for Visit: chronic leg/back pain Hospital Course Hospital Course Lorna Mckenzie is a 69 year old female comes in from home states she lost feeling in her limbs this morning and also has bad pain. She has been unable to move her legs this morning. She had been independently transferring herself with walker to wheelchair for a month or 2 until 2 weeks ago. At that time she has required assistance from her sister Hortencia who is also her caregiver. In the last 24 hours she is unable to move her legs. Patient has history of stage IV breast cancer diagnosed with breast and back involvement 2022. 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 28 days She is on Orserdu 345 mg daily with plan to do palliative radiation but declined she tells me she wants to live and wants full code. She also desires to walk but I discussed with her the need for MRI and transfer for radiation or possible surgery and she declined. Dr. Briones also gave the same advice the patient elects to stay here. She has been told that she will almost certainly be permanently unable to walk without radiation therapy to her back emergently. Patient voices understanding and desire to stay here at [facility] Admitted to have immunotherapy and radiation. Patient is completing this today and now returning home to the family. Patient is still full code and does not want to hospice at this time. Patient had a metastatic breast cancer to the bone and all other important involving areas such as liver. Patient is on pain management at this time. Patient is on palliative care. Patient had been discharged in stable condition and having hospital bed delivered at her house with a family. Patient came for follow-up with home health care and the primary care doctor again within 2 to 4 days of discharge Physical Exam Narrative: General the patient is looking well denies any complaints patient had requested for some pain medication and care at the bedside during my rounds. That was provided. The nursing educator provided care and nursING staff administer some pain medication. Patient awaiting to be discharged today after radiation therapy. HEENT normocephalic atraumatic neck neck is supple cardiovascular heart rate is regular lungs are pretty much coarse breath sounds had good air movement Abdomen is soft nontender nondistended unremarkable extremities are intact no edema has good pulses neurology has no focality lab studies lab studies reviewed and noted. Discharge Data Studies Completed and Pending Completed Studies During Hospitalization Category Date Time Status CT lumbar spine wo con* [id number] Stat Cat Scan 03/18/25 15:[address] thoracic spin wo con* [id number] Stat Cat Scan 03/18/25 15:08 Completed Pending at discharge Category Date Time Status MR cervical spin wo con* [id number] Routine MRI 03/28/25 07:52 Ordered MR lumbar spine wo con* [id number] Routine MRI 03/28/25 07:51 Ordered MR thoracic spin wo con* [id number] Routine MRI 03/28/25 07:52 Ordered Radiology Impressions Lumbar Spine CT 03/18/25 15:08 IMPRESSION: Extensive lytic metastatic disease and associated expansile soft tissue masses throughout the lumbar spine as described above. Multilevel instability including the L1, L2, L3 and L4 levels. Multilevel severe foraminal narrowing and moderate to severe spinal canal narrowing, detailed above. Assessment for the degree of spinal canal narrowing should include MRI. Thoracic Spine CT 03/18/25 15:08 IMPRESSION: 1. Sclerotic and lytic metastases noted from T7 through T10, without resultant vertebral body height loss or significant epidural mass. 2. Extensive lytic destruction and soft tissue mass associated with L1, discussed on concurrent lumbar spine CT. 3. 4.6 cm well-defined subcutaneous cystic mass overlying the posterior midline upper thoracic spine. Laboratory Results WBC 7.41 10^3/uL (3.29-11.43) 03/27/25 05:39 RBC 3.38 10^6/uL (3.85-5.65) L 03/27/25 05:39 Hgb 10.40 g/dL (11.27-16.99) L 03/27/25 05:39 Hct 31.3 % (36-47) L 03/27/25 05:39 MCV 92.6 fl (85-98) 03/27/25 05:39 MCH 30.8 pg (27-33) 03/27/25 05:39 MCHC 33.2 g/dL (30-55) 03/27/25 05:39 RDW 15.8 % (12.1-15.1) H 03/27/25 05:39 Plt Count 347 10^3/cmm (157-399) 03/27/25 05:39 MPV 9.6 fL (7.4-10.4) 03/27/25 05:39 Neut % (Auto) 85.1 % 03/27/25 05:39 Lymph % (Auto) 5.3 % 03/27/25 05:39 [place] % (Auto) 8.5 % 03/27/25 05:39 Eos % (Auto) 0.3 % 03/27/25 05:39 Baso % (Auto) 0.1 % 03/27/25 05:39 Neut # (Auto) 6.31 10^3/uL (1.8-7.7) 03/27/25 05:39 Lymph # (Auto) 0.4 10^3/uL (0.8-4.8) L 03/27/25 05:39 [place] # (Auto) 0.6 10^3/uL (0.2-0.9) 03/27/25 05:39 Eos # (Auto) 0.0 10^3/uL (0.0-0.8) 03/27/25 05:39 Baso # (Auto) 0.0 10^3/uL (0.0-0.1) 03/27/25 05:39 Nucleated RBC % (auto) 0 % 03/27/25 05:39 Nucleated RBCs # 0.0 /100WBC 03/27/25 05:39 ESR 45 mm/hr (0-15) H 03/18/25 15:09 Sodium 136 mmol/L (136-145) 03/27/25 05:39 Potassium 4.2 mmol/L (3.5-5.1) 03/27/25 05:39 Chloride 103 mmol/L (98-107) 03/27/25 05:39 Carbon Dioxide 24 mmol/L (22-29) 03/27/25 05:39 Anion Gap 13.2 (5-19) 03/27/25 05:39 BUN 19 mg/dL (8-23) 03/27/25 05:39 Creatinine 0.3 mg/dL (0.5-0.9) L 03/27/25 05:39 GFR Calculation 221.2 mL/min (90-130) H 03/27/25 05:39 Glucose 133 mg/dL (65-115) H 03/27/25 05:39 Calculated Osmolality 286 mOsm/kg (285-295) 03/27/25 05:39 Calcium 8.3 mg/dL (8.5-10.5) L 03/27/25 05:39 Total Bilirubin 0.4 mg/dL (0.15-1.2) 03/27/25 05:39 AST 21 U/L (0-32) 03/27/25 05:39 ALT 17 U/L (0-33) 03/27/25 05:39 Alkaline Phosphatase 79 U/L (35-105) 03/27/25 05:39 C-Reactive Protein 36.1 mg/L (0.0-4.9) H 03/18/25 15:09 Total Protein 5.7 g/dL (6.6-8.7) L 03/27/25 05:39 Albumin 3.0 g/dL (3.5-5.2) L 03/27/25 05:39 Globulin 2.7 g/dL (1.3-4.6) 03/27/25 05:39 Urine Color Dark yellow (Yellow) A 03/18/25 16:19 Urine Appearance Cloudy (CLEAR) A 03/18/25 16:19 Urine pH 5.0 (5-7) 03/18/25 16:19 Ur Specific [place] 1.022 (1.005-1.030) 03/18/25 16:19 Urine Protein Trace (Negative) A 03/18/25 16:19 Urine Glucose (UA) Negative (Normal) 03/18/25 16:19 Urine Ketones Trace (Negative) 03/18/25 16:19 Urine Blood Negative (Negative) 03/18/25 16:19 Urine Nitrate Negative (Negative) 03/18/25 16: Urine Bilirubin Negative (Negative) 03/18/25 16:19 Urine Urobilinogen 1.0 mg/dL (Negative) 03/18/25 16:19 Ur Leukocyte Esterase Trace (Negative) A 03/18/25 16:19 Urine RBC 0-4 /hpf (0-2) H 03/18/25 16:19 Urine WBC 5-10 /hpf (0-5) H 03/18/25 16:19 Ur Squamous Epith Cells 5-10 /hpf (0-5) H 03/18/25 16:19 Calcium Oxalate Crystal 25-40 /hpf H 03/18/25 16:19 Amorphous Sediment Not Reportable 03/18/25 16:19 Urine Bacteria 1+ /hpf (NONE) H 03/18/25 16:19 Hyaline Casts 0-4 /lpf H 03/18/25 16:19 Urine Mucus 2+ /hpf 03/18/25 16:19 Vitals Last Vital Signs Temp 98.4 F 03/28/25 12:38 Pulse 104 H 03/28/25 12:38 Resp 18 03/28/25 13:39 BP 149/80 03/28/25 12:38 Pulse Ox 97 03/28/25 12:38 O2 Del Method Room Air 03/28/25 04:00 Discharge Plan Discharge Patient Disposition: Home Health Service Condition: Stable Prescriptions: New megestrol 400 mg/10 mL (40 mg/mL) Suspension 400 mg PO DAILY Qty: 480 0RF dexamethasone sodium phosphate 4 mg/mL Solution 4 mg PO BID Qty: 125 0RF Continued cholecalciferol (vitamin D3) 25 mcg (1,000 unit) tablet,chewable 25 mcg PO DAILY Qty: 30 3RF elacestrant 345 mg tablet 345 mg PO DAILY Qty: 30 0RF Rx Instructions: Swallow tablet(s) whole. Do not chew, crush, or split prior to swallowing. Do not take any tablets that are broken, cracked, or that look damaged. (DME) Wheelchair See Rx Instructions .Route .MEDSUPPLY Qty: 1 0RF Rx Instructions: As directed oxycodone 10 mg tablet 20 mg PO Q4H PRN (Reason: pain) 30 Days Qty: 200 0RF Robot Programmer OK for DC: Hospitalist Discharge Order = DC NOW: Discharge Order (Routine); Ordered 03/28/25 Ordered By: Melissa Courtney Other Ambulatory Orders: DME: Hospital Bed (Order) Location: None Selected Ordered By: Cindy Mcintyre Referrals: Jitendra Harper MD [Primary Care Provider, Family Practice] Patient Instructions: Opioid Safety, Patient Portal & Lex Instructions Discharge Attestations Time Spent in Discharge Care*: less than 30 min Quality Metrics Clinical Quality Measures [ No reported AMI, CVA or VTE this stay] Coding Level of Care Code 60264 Diagnoses Severe protein-calorie malnutrition E43 Metastatic malignant neoplasm to breast C79.81 Acute flaccid paraplegia G82.20 Fullness of female pelvic organs R19.00 Compression fracture of L2 vertebra S32.020A Hypokalemia E87.6 Nausea & vomiting R11.2 Time Spent (min) 30
[2025-03-28] MEDS: [UNRECOGNIZED DRUG - OTHER] 345 EACH PO (17:11)
[2025-03-29] VITALS (12 sets, daily range): BP systolic 98–156; BP diastolic 55–74; PULSE 79–112; RESP 16–20; TEMP 36.4–36.9; O2SAT 95–98
[2025-03-29] MEDS: oxyCODONE 5 mg IR Tab/Cap 20 MG PO ×5 (01:16→20:42)
--- NOTE | 2025-03-29 04:28 | PC.NURSE ---
Pt refused colace, potassium, ferrous sulfate, cholecaliferol this morning. States she does not need them today because she will be getting them in a prescription when she leaves.
--- NOTE | 2025-03-29 10:08 | PC.NURSE ---
Pt with round iliamna sugar coated gummy at bedside on spoon, pt refused to allow nurse to throw away but decline what this is. Pt is taking bites off of this.
--- NOTE | 2025-03-29 10:11 | PC.NURSE ---
0800, pt believes we are putting things in her milk because we opened her chocolate milk and put her straw in there, explained we are only trying to help her.
[2025-03-29] MEDS: [UNRECOGNIZED DRUG - OTHER] 345 EACH PO (16:57)
--- NOTE | 2025-03-29 18:19 | PC.SOCIAL ---
*IMM Update* Patient received copy of IMM, Copy is initialled, dated and placed in chart.
[2025-03-30] VITALS (8 sets, daily range): BP systolic 116–137; BP diastolic 67–82; PULSE 74–106; RESP 15–17; TEMP 36.4–37.2; O2SAT 95–98
[2025-03-30] MEDS: oxyCODONE 5 mg IR Tab/Cap 20 MG PO ×3 (00:58→09:14)
--- NOTE | 2025-03-30 12:56 | PM.DCS ---
Discharge Providers Date of Admission: 03/18/25 18:12 Date of Discharge: March 30, 2025 Attending Provider at Admission: Daniel Penaloza MD Attending Provider at Discharge: Deonna Rudolph MD Primary Care Provider: Jitendra Harper MD Diagnoses at Discharge Discharge Diagnosis 1. Severe protein-calorie malnutrition: 2. Metastatic malignant neoplasm to breast: 3. Acute flaccid paraplegia: 4. Fullness of female pelvic organs: 5. Compression fracture of L2 vertebra: 6. Hypokalemia: 7. Nausea & vomiting: Reason for Visit Reason for Visit: chronic leg/back pain Hospital Course Hospital Course As per the previous notes and the patient: Lorna Mckenzie is a 69 year old female comes in from home states she lost feeling in her limbs this morning and also has bad pain. She has been unable to move her legs this morning. She had been independently transferring herself with walker to wheelchair for a month or 2 until 2 weeks ago. At that time she has required assistance from her sister Hortencia who is also her caregiver. In the last 24 hours she is unable to move her legs. Patient has history of stage IV breast cancer diagnosed with breast and back involvement 2022. This was invasive ductal carcinoma of the right breast with ER and [place] positive and HER2 lela low (1+ by IHC) She has been taking Xtampza till January she is taking oxycodone 20 mg recently on zoledronic acid for bone metastasis q. 28 days She is on Orserdu 345 mg daily with plan to do palliative radiation but declined. she showed wishes to live and wants full code. She also desires to walk and was discussed at the time of admission that she needs MRI and transfer for radiation or possible surgery and she declined again. Dr. Briones also gave the same advice the patient elects to stay here. She has been told that she will almost certainly be permanently unable to walk without radiation therapy to her back emergently. Patient voices understanding and desire to stay here at [facility] Admitted to have immunotherapy and radiation. Patient is completing and now returning home to the family. Patient is still full code and does not want to hospice at this time. Patient had a metastatic breast cancer to the bone and all other important involving areas such as liver. Patient is on pain management at this time. Patient is on palliative care. Patient had been discharged in stable condition and having hospital bed delivered at her house with a family. the patient preferred to stay one more day to have PT/OT evaluation and later after confirming her stability, she further counseled about her health and further plan of care, agreed and to be discharged Patient came for follow-up with home health care and the primary care doctor again with post discharge follow up. Patient condition has been discussed at length with the patient/family, I have independently reviewed the chart labs imaging/diagnostics/EKG. the goals of care and code status with the patient/family/NOK/legal brand representative, and documented accordingly. The patient/family has been informed about the current condition and further plan of care. Agreed with the plan of care and understood without any language barrier. Every effort was made to ensure accuracy of memorial adviser. Any obvious errors or omissions should be clarified with the author of the document. Physical Exam Narrative: General: Alert and oriented, lying comfortably without any distress,looks cachectic and with signs of severe malnourishment, at room air HEENT: Normocephalic, atraumatic, grossly unremarkable exam Cardio: normal rate rhythm, normal S1-S2 without any murmurs, rubs, or gallops and JVD normal Respiratory: normal vascular breathing on auscultation without any wheezes, stridor, rhonchi GI: Abdomen soft, nontender, nondistended, normoactive bowel sounds present all 4 quadrants, Neuro: intact cranial nerves motor and sensory and cerebellar/coordination function without any focal neurological deficit Behavior: Appropriate and cooperative Extremities: Adequate palpable pulses, mild trace edema Discharge Data Studies Completed and Pending Completed Studies During Hospitalization Category Date Time Status CT lumbar spine wo con* [id number] Stat Cat Scan 03/18/25 15:[address] thoracic spin wo con* [id number] Stat Cat Scan 03/18/25 15:08 Completed Radiology Impressions Lumbar Spine CT 03/18/25 15:08 IMPRESSION: Extensive lytic metastatic disease and associated expansile soft tissue masses throughout the lumbar spine as described above. Multilevel instability including the L1, L2, L3 and L4 levels. Multilevel severe foraminal narrowing and moderate to severe spinal canal narrowing, detailed above. Assessment for the degree of spinal canal narrowing should include MRI. Thoracic Spine CT 03/18/25 15:08 IMPRESSION: 1. Sclerotic and lytic metastases noted from T7 through T10, without resultant vertebral body height loss or significant epidural mass. 2. Extensive lytic destruction and soft tissue mass associated with L1, discussed on concurrent lumbar spine CT. 3. 4.6 cm well-defined subcutaneous cystic mass overlying the posterior midline upper thoracic spine. Laboratory Results WBC 7.41 10^3/uL (3.29-11.43) 03/27/25 05:39 RBC 3.38 10^6/uL (3.85-5.65) L 03/27/25 05:39 Hgb 10.40 g/dL (11.27-16.99) L 03/27/25 05:39 Hct 31.3 % (36-47) L 03/27/25 05:39 MCV 92.6 fl (85-98) 03/27/25 05:39 MCH 30.8 pg (27-33) 03/27/25 05:39 MCHC 33.2 g/dL (30-55) 03/27/25 05:39 RDW 15.8 % (12.1-15.1) H 03/27/25 05:39 Plt Count 347 10^3/cmm (157-399) 03/27/25 05:39 MPV 9.6 fL (7.4-10.4) 03/27/25 05:39 Neut % (Auto) 85.1 % 03/27/25 05:39 Lymph % (Auto) 5.3 % 03/27/25 05:39 [place] % (Auto) 8.5 % 03/27/25 05:39 Eos % (Auto) 0.3 % 03/27/25 05:39 Baso % (Auto) 0.1 % 03/27/25 05:39 Neut # (Auto) 6.31 10^3/uL (1.8-7.7) 03/27/25 05:39 Lymph # (Auto) 0.4 10^3/uL (0.8-4.8) L 03/27/25 05:39 [place] # (Auto) 0.6 10^3/uL (0.2-0.9) 03/27/25 05:39 Eos # (Auto) 0.0 10^3/uL (0.0-0.8) 03/27/25 05:39 Baso # (Auto) 0.0 10^3/uL (0.0-0.1) 03/27/25 05:39 Nucleated RBC % (auto) 0 % 03/27/25 05:39 Nucleated RBCs # 0.0 /100WBC 03/27/25 05:39 ESR 45 mm/hr (0-15) H 03/18/25 15:09 Sodium 136 mmol/L (136-145) 03/27/25 05:39 Potassium 4.2 mmol/L (3.5-5.1) 03/27/25 05:39 Chloride 103 mmol/L (98-107) 03/27/25 05:39 Carbon Dioxide 24 mmol/L (22-29) 03/27/25 05:39 Anion Gap 13.2 (5-19) 03/27/25 05:39 BUN 19 mg/dL (8-23) 03/27/25 05:39 Creatinine 0.3 mg/dL (0.5-0.9) L 03/27/25 05:39 GFR Calculation 221.2 mL/min (90-130) H 03/27/25 05:39 Glucose 133 mg/dL (65-115) H 03/27/25 05:39 Calculated Osmolality 286 mOsm/kg (285-295) 03/27/25 05:39 Calcium 8.3 mg/dL (8.5-10.5) L 03/27/25 05:39 Total Bilirubin 0.4 mg/dL (0.15-1.2) 03/27/25 05:39 AST 21 U/L (0-32) 03/27/25 05:39 ALT 17 U/L (0-33) 03/27/25 05:39 Alkaline Phosphatase 79 U/L (35-105) 03/27/25 05:39 C-Reactive Protein 36.1 mg/L (0.0-4.9) H 03/18/25 15:09 Total Protein 5.7 g/dL (6.6-8.7) L 03/27/25 05:39 Albumin 3.0 g/dL (3.5-5.2) L 03/27/25 05:39 Globulin 2.7 g/dL (1.3-4.6) 03/27/25 05:39 Urine Color Dark yellow (Yellow) A 03/18/25 16:19 Urine Appearance Cloudy (CLEAR) A 03/18/25 16:19 Urine pH 5.0 (5-7) 03/18/25 16:19 Ur Specific [place] 1.022 (1.005-1.030) 03/18/25 16:19 Urine Protein Trace (Negative) A 03/18/25 16:19 Urine Glucose (UA) Negative (Normal) 03/18/25 16:19 Urine Ketones Trace (Negative) 03/18/25 16:19 Urine Blood Negative (Negative) 03/18/25 16:19 Urine Nitrate Negative (Negative) 03/18/25 16:19 Urine Bilirubin Negative (Negative) 03/18/25 16:19 Urine Urobilinogen 1.0 mg/dL (Negative) 03/18/25 16:19 Ur Leukocyte Esterase Trace (Negative) A 03/18/25 16:19 Urine RBC 0-4 /hpf (0-2) H 03/18/25 16:19 Urine WBC 5-10 /hpf (0-5) H 03/18/25 16:19 Ur Squamous Epith Cells 5-10 /hpf (0-5) H 03/18/25 16:19 Calcium Oxalate Crystal 25-40 /hpf H 03/18/25 16:19 Amorphous Sediment Not Reportable 03/18/25 16:19 Urine Bacteria 1+ /hpf (NONE) H 03/18/25 16:19 Hyaline Casts 0-4 /lpf H 03/18/25 16:19 Urine Mucus 2+ /hpf 03/18/25 16:19 Vitals Last Vital Signs Temp 98.6 F 03/30/25 11:10 Pulse 106 H 03/30/25 11:10 Resp 16 03/30/25 11:10 BP 123/82 03/30/25 11:10 Pulse Ox 95 03/30/25 11:10 O2 Del Method Room Air 03/30/25 11:10 Discharge Plan Discharge Patient Disposition: Home Health Service Condition: Stable Prescriptions: New megestrol 400 mg/10 mL (40 mg/mL) Suspension 400 mg PO DAILY Qty: 480 0RF dexamethasone sodium phosphate 4 mg/mL Solution 4 mg PO BID Qty: 125 0RF Continued cholecalciferol (vitamin D3) 25 mcg (1,000 unit) tablet,chewable 25 mcg PO DAILY Qty: 30 3RF elacestrant 345 mg tablet 345 mg PO DAILY Qty: 30 0RF Rx Instructions: Swallow tablet(s) whole. Do not chew, crush, or split prior to swallowing. Do not take any tablets that are broken, cracked, or that look damaged. (DME) Wheelchair See Rx Instructions .Route .MEDSUPPLY Qty: 1 0RF Rx Instructions: As directed oxycodone 10 mg tablet 20 mg PO Q4H PRN (Reason: pain) 30 Days Qty: 200 0RF Director E Learning OK for DC: Hospitalist Discharge Order = DC NOW: Discharge Order (Routine); Ordered 03/28/25 Ordered By: Melissa Courtney Other Ambulatory Orders: DME: Hospital Bed (Order) Location: None Selected Ordered By: Cindy Mcintyre Referrals: Jitendra Harper MD [Primary Care Provider, Family Practice] - 04/04/25 10:00 am Discharge Diet: Advance as tolerated Discharge Activity: Resume usual activity, Increase activity as tolerated and Limit activity as instructed Patient Instructions: Megestrol (By mouth), Dexamethasone (By mouth), Malnutrition (DC), Vertebral Compression Fracture (DC), Opioid Safety, Patient Portal & Lex Instructions Discharge Attestations Time Spent in Discharge Care*: greater than 30 min Specific Discharge Activities: educating patient, educating and/or supporting family/caregiver, discussing with pcp/other providers, discussing with casey saw operator/social workers/dc planners, documenting/other paperwork and evaluating patient/reviewing data Status at Discharge: Cognitive status at discharge: cognitively intact, Behavioral status at discharge: cooperative, Functional status at discharge: independent ambulation, Overall status at discharge: patient is back to baseline Quality Metrics Clinical Quality Measures [ No reported AMI, CVA or VTE this stay] Coding Level of Care Code Acute Code for Chg Fwd Diagnoses Severe protein-calorie malnutrition E43 Metastatic malignant neoplasm to breast C79.81 Acute flaccid paraplegia G82.20 Fullness of female pelvic organs R19.00 Compression fracture of L2 vertebra S32.020A Hypokalemia E87.6 Nausea & vomiting R11.2
== END 2025-03-30 13:09 | disposition home health service (06) | DRG 542 ==
LOC: ER 15:14 → MEDSURG 19:12
PROVIDERS: Internal Medicine; Student in an Organized Health Care Education/Training Program; Admitting Provider Internal Medicine; Emergency Provider Family Medicine; PCP Family Medicine; Visit Provider Student in an Organized Health Care Education/Training Program
DX: C79.51 Secondary malignant neoplasm of bone (principal); E43 Unspecified severe protein-calorie malnutrition; G82.20 Paraplegia, unspecified; C78.7 Secondary malignant neoplasm of liver and intrahepatic bile duct; Z68.1 Body mass index [BMI] 19.9 or less, adult; M48.56XA Collapsed vertebra, not elsewhere classified, lumbar region, initial encounter for fracture; C50.911 Malignant neoplasm of unspecified site of right female breast; Z17.0 Estrogen receptor positive status [ER+]; Z17.21 Progesterone receptor positive status; E87.6 Hypokalemia; Z87.891 Personal history of nicotine dependence
CPT/HCPCS: 36415; 72128; 72131; 77412; 80053; 81001; 85025; 85651; 86140; 94664; 96372; 96374; 97110; 97161; 97165; 97530; 99285; J1100; J1650; J1885; J9999

== ENCOUNTER 2025-03-31 10:26 | Oncology outpatient (recurring) (ONCR) | payer OTHER, MEDICAID, SELFPAY ==
--- NOTE | 2025-03-21 15:20 | ONCRAD EPV_ITS ---
Radiation Oncology Established Patient Visit Patient: Magaly Rothman [id number] : 1955> Age: 69> Sex: Female> Account #: Dictated by: Juwan Medina Date of Service: 03/21/2025 Referring Physician(s) : Mark Sandoval M.D. 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 STAGE: IV ICD-10: C79.51 Radiotherapy to Date: Current History: Pt admitted to hospital on Friday. Hospitalist called regarding pain in lumbar area with rt leg radicular pain. Patient relates having one of her horses fall and knocking her down on with health progression since then. Patient states she was able to lift up out of a chair on of last week, but by Friday could not use either leg. She then sought care in our ER. She is unable to lift with her hip flexors from an outstretched leg at this time. CT LS show further aggressive expansion of bone mets going from L1-L4 on new imaging studies. Current Medications: Acetaminophen, aspirin, berberine Complex, cBD4 Freeze Pump Maximum Str, cVS Fish Oil, cVS Turmeric Curcumin, ivermectin, oxyCODONE ER, promethazine HCl, quercine. Allergies: No Known Allergies Current Complaints / Review of Systems: As above 12 point review otherwise unremarkable. Vital Signs: Per inpatient chart Physical Exam: General: Alert and oriented x 3. No acute distress. HEENT: Normocephalic, atraumatic. Extraocular Movements Intact: Pupils Equal, Round, Reactive to Light and Accommodation: Sclerae anicteric. Oral cavity is clear without lesions, masses or ulcers. NECK: Supple without supraclavicular or jugular lymphadenopathy. LUNGS: Clear to auscultation bilaterally without rales, rhonchi or wheeze. HEART: Regular rate and rhythm, normal S1 and S2 without murmur, gallop or rub. MUSCULOSKELETAL: Inability to actuate extensor or flexors in the lower extremities at this time. Sensation is markedly reduced. Patient denies any urinary or bowel problems at this time. Tenderness in the lumbar spine. ABDOMEN: Soft, nontender, nondistended without masses or organomegaly. Bowell sounds are present. EXTREMITIES: as above. Performance Status: KPS 50 Lab: None pending. Pathology: Primary, c79.51 - secondary malignant neoplasm of bone, Diagnosed 10/23/2022 (active) . 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 STAGE: IV ICD-10: C79.51 PLAN: Patient wishes to proceed with XRT We will expand our treatment pill to include just above L1 inferiorly through the proximal femur. Patient will be treated to 2000 cGy in 5 fractions to commence tomorrow. Signed by: 03/21/2025 3:18:28 PM <<Signature on File>> Time spent with patient/SISTER/IMAGE REVIEW/DOC PREP: 45 MINUTES CPT Code: CPT Code:
--- NOTE | 2025-03-28 14:59 | N.ONRD TS_ITS ---
Radiation Oncology Treatment Summary Patient: Lorna Mckenzie MR#: [id number] : 1955 Age: 69 Sex: Female Dictated by: Albert Medina Date of Service: 03/28/2025 Referring Physician(s) : Mark Sandoval M.D. Diagnosis: C79.51 - Secondary malignant neoplasm of bone, Diagnosed 10/23/2022 (Active) Radiotherapy to Date: Course: Lum Spine/Rt Hip, Treatment Site: L Spine R hip, Ref. ID: [id number], Energy: 15X, Dose/Fx (cGy): 400, #Fx: 5 / 5, Dose Correction (cGy): 0, Total Dose Delivered (cGy): 2,000, Start Date: 03/22/2025, End Date: 03/28/2025, Elapsed Days: 6 Vital Signs: Performed on 03/28/2025 2:26 PM BMI - 17.337 kg/m2 (low), Height - 64 in, Weight - 101 lbs, Temperature - 98.4 f, Pulse - 104 /min (high), Respiration - 18 /min, O2 Sat - 97 %, Pain - 0, Fatigue - 0 and BP - 149/ 80 mm(hg)(high/). Clinical Summary: The patient tolerated RT well. Still has severe weakness of the lower extremities. She is improving her hip flexors at this time but has no extension or flexion ability at the knee or ankles. She is moved with 100% help from nurse at this time. Plan: End of treatment today. Continue on the above medication until the skin reaction resolves. Follow up in one month. Signed by: Albert Medina>03/28/2025 2:58:08 PM <<Signature on File>>
== END 2025-04-06 06:00 | disposition home or self-care (01) ==
LOC: ONCMED 04-14 07:04
PROVIDERS: PCP Family Medicine; Visit Provider Internal Medicine
DX: C79.51 Secondary malignant neoplasm of bone (principal)
CPT/HCPCS: 77014; 77336; 77387; 77412; 77427

== ENCOUNTER 2025-05-17 14:01 | Oncology outpatient (recurring) (ONCR) | payer MEDICARE, MEDICAID, SELFPAY ==
[2025-05-17 14:28] LABS: Hematocrit 38.2 % (36-47); Hemoglobin 12.10 g/dL (11.27-16.99); Mean Corpuscular HGB Conc 31.7 g/dL (30-55); Mean Corpuscular Hemoglobin 31.0 pg (27-33); Mean Corpuscular Volume 97.9 fl (85-98); Nucleated Red Blood Cells % 0 %; Platelet Count 316 10^3/cmm (157-399); Red Blood Count 3.90 10^6/uL (3.85-5.65); White Blood Count 5.15 10^3/uL (3.29-11.43)
[2025-05-17 15:06] LABS: Alanine Aminotransferase 14 U/L (0-33); Albumin Level 3.5 g/dL (3.5-5.2); Alkaline Phosphatase 94 U/L (35-105); Anion Gap 14.3 (5-19); Aspartate Amino Transferase 23 U/L (0-32); Blood Urea Nitrogen 20 mg/dL (8-23); Calcium 8.9 mg/dL (8.5-10.5); Carbon Dioxide 25 mmol/L (22-29); Chloride 106 mmol/L (98-107); Ferritin 303 ng/mL (15-150); Globulin 3.0 g/dL (1.3-4.6); Glucose 110 mg/dL (65-115); Iron 45 ug/dL (37-145); Osmolality Calculated 295 mOsm/kg (285-295); Potassium 4.3 mmol/L (3.5-5.1); Sodium 141 mmol/L (136-145); Total Iron Binding Capacity 222 mcg/dl; Total Protein 6.5 g/dL (6.6-8.7); Unsaturated Iron Binding 177 ug/dL (112-347)
[2025-05-17 15:29] LABS: CA 15-3 546.2 U/mL (0-25)
== END 2025-06-08 23:59 | disposition home or self-care (01) ==
LOC: ONCMED 14:02
PROVIDERS: Internal Medicine; PCP Family Medicine; Visit Provider Family Medicine
DX: C50.111 Malignant neoplasm of central portion of right female breast (principal); Z17.0 Estrogen receptor positive status [ER+]; C79.51 Secondary malignant neoplasm of bone; C78.7 Secondary malignant neoplasm of liver and intrahepatic bile duct; E55.9 Vitamin D deficiency, unspecified; G89.29 Other chronic pain; Z92.3 Personal history of irradiation; Z87.891 Personal history of nicotine dependence; Z79.899 Other long term (current) drug therapy
CPT/HCPCS: 80053; 82306; 82728; 82746; 83010; 83540; 83550; 85025; 86300; 99214